=== PATIENT | female | born 1955 | race African-American/Black ===

== ENCOUNTER → 2018-08-22 20:01 | Outpatient (CLI) | payer BC, SELFPAY ==
--- NOTE | 2018-08-22 16:30 | CYSPIN_PTH ---
PATIENT: DAMIEN WELLER LOC: [facility] U#:[id number] AGE/SX: 70/F ROOM: RE08/22/[address]: JOSE Leon : 1955 BED: DIS: SPEC #: [id number] RECD: 08/23/18 11:34 STATUS: AYSE TOMASA #: [id number] SNEHAL: 08/22/18 16:[address]: Giovanna Wolf NP DEPT: CYTOLOGY RECD BY: Garry Guillaume ENTERED: 08/23/18 11:34 SP TYPE: CYSPIN FL OTHR DR: Dr. Ayde Peterson MD Tissues: Urine Procedures: Pap Stain (control) Special Stain Group II Cytospin Fluid HEADER OPERATION: Not noted PRE-OP DIAGNOSIS: Hematuria TISSUE SUBMITTED: Urine for cytology DIAGNOSIS CYTOLOGY Urine for cytology (cytospin): Negative for malignant cells. See cytology study and comment. SJ:sudha 08/24/18 COMMENT Correlation with clinical findings and appropriate follow up are necessary. CYTOLOGY STUDY Slides are reviewed. The specimen predominantly consists of benign squamous cells, organisms consistent with bacteria and fungi (yeast and pseudohyphae consistent with case species) and a few red blood cells. Vaginal contamination cannot be entirely ruled out. CYTOLOGY GROSS Received is 20 ml of cloudy yellow fluid labeled with the patient's name and and designated per the requisition as urine. Submitted for cytology preparation. 08/23/18 TC:5 CPT: 39983
[2018-08-22 20:02] LABS: Cytology, Body Fluid / CSF SEE PATHOLOGY REPORT
== END ==
PROVIDERS: Family Provider Internal Medicine; PCP Internal Medicine; Referring Provider Nurse Practitioner Adult Health; Visit Provider Nurse Practitioner Adult Health
DX: R31.9 Hematuria, unspecified (principal)
CPT/HCPCS: 87086; 87088; 88108; 88313

== ENCOUNTER → 2018-12-07 06:40 | Outpatient (CLI) | payer BC, SELFPAY ==
--- NOTE | 2018-12-07 10:50 | NEURO ---
NCS and/or EMG Patient Report Ordering Doctor: Daniel Nesbitt DATE OF SERVICE: 12/07/18 this is a right upper extremity emg and nerve conduction study performed on this 63-year-old female who in August 2018 experienced sharp pain in her right elbow with subsequent radiation of pain into her hand mostly affecting her second through fifth digits but at times her thumb as well. The elbow pain has resolved but she experiences persistent intermittent discomfort in her hand with no exacerbating or remitting factors. She is relatively healthy otherwise. Right upper extremity sensory and motor nerve conduction studies performed. There is mild prolongation of the median motor distal latency with preservation of amplitude and conduction velocities. The median sensory response is normal. The ulnar motor and sensory and radial sensory responses are normal. The median and ulnar F-wave latencies are normal. Right upper extremity needle electromyography was performed. Muscles evaluated included the first dorsal interosseous, abductor pollicis brevis, brachioradialis, biceps, triceps and deltoid muscles. All muscles demonstrated normal insertional activity with absence of pathologic spontaneous activity. Motor unit potential recruitment pattern and amplitude was normal in all muscles tested. 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 There is no evidence of neuropathy otherwise or cervical radiculopathy.
== END ==
PROVIDERS: Family Provider Internal Medicine; PCP Internal Medicine; Referring Provider Physician Assistant; Visit Provider Physician Assistant
DX: R20.2 Paresthesia of skin (principal)
CPT/HCPCS: 95886; 95910

== ENCOUNTER 2020-02-29 01:48 | Emergency (ER) | payer BC, SELFPAY ==
[2020-02-29 01:52] VITALS: BP 151/82; PULSE 112; RESP 18; TEMP 36.7; O2SAT 99; BMI 29.9
[2020-02-29 01:55] VITALS: BP 151/82; PULSE 112; RESP 18; TEMP 36.7; O2SAT 99
--- NOTE | 2020-02-29 02:03 | CT_ITS ---
STUDY: CT ABDOMEN AND PELVIS WITHOUT CONTRAST REASON FOR EXAM: Female, 64 years old. LEFT SIDE FLANK AND ABD PAIN WITH HEMATURIA AND CONSTIPATION, HX PT COLECTOMY, cholecystectomy, appendectomy, kidney stones as per prior examination. RADIATION DOSAGE (If Supplied By Facility): CTDIvol = ( 8.22 ) mGy, DLP = ( 390.00 ) mGycm TECHNIQUE: Transaxial 2.5 mm images were obtained from the dome of the diaphragm to the symphysis pubis without oral contrast, and without intravenous contrast. Sagittal and coronal images were reconstructed. This examination is limited for the evaluation of gastrointestinal, solid organs and vascular structures due to the lack of intravenous and oral contrast. Individualized dose optimization techniques were used for this CT. COMPARISON: CT abdomen pelvis 07/28/2017 FINDINGS: The visualized lung bases are unremarkable. There is coronary artery calcification. Stable 1 cm round partially peripheral calcification in the right hepatic lobe. There are surgical clips in the gallbladder fossa consistent with a prior cholecystectomy. Normal spleen. Normal pancreas. Normal bilateral adrenal glands. Large stable right renal cyst 6.5 x 6.5 x 6.3 cm. Multiple punctate nonobstructing right renal calculi, too small to characterize. No significant change. Normal left kidney. Normal visualized stomach. Normal small intestine. Normal colon. There is non-visualization of the appendix. Normal abdominal aorta. Normal inferior vena cava. Stable clusters of calcified lymph nodes in the pericaval and periaortic space and along the bilateral pelvic dahl. No active retroperitoneal lymphadenopathy. Normal urinary bladder. Uterus is not visualized. Normal abdominal wall. There are diffuse degenerative changes of the visualized spine, bilateral hip and sacroiliac joints, lower lumbar facet joints. CT/Abdomen/Pelvis without Cont IMPRESSION: There is no obstructive uropathy, obstructive renal or ureteral calculi. There is no abscess, collection, perforation or obstruction. Stable large right renal cyst and multiple small nonobstructing right renal calculi, 1 cm right hepatic calcification, prior cholecystectomy, nonvisualized uterus and appendix, clusters of calcification of retroperitoneal and lateral pelvic wall lymph nodes. Electronically Signed: Jessica Nichols MD at 3:07 EDT , Service support ,
--- NOTE | 2020-02-29 02:04 | ED.VIS.GEN ---
History of Present Illness Chief Complaint: Abd Pain Informant: Patient Narrative: Stated for the last 7 days she has had left lower back pain radiating into the left lower abdomen. She is unsure if is from constipation. Her last bowel movement was 10 days ago. Normally she goes every other day. She is tried Dulcolax and MiraLAX with minimal relief. Denies any nausea vomiting. Positive history of kidney stone. She did go to urgent care and they ruled out urine infection. They told her she did have hematuria. She has not noticed any blood however. Her low back pain is worse with movement. It appears movement related. Is a sharp pain. It is constant. No injury that she can remember. Bowel obstruction. History of appendectomy cystectomy and hysterectomy - Past Medical History (1) Malaise and fatigue Status: Acute (2) Hypothyroidism (acquired) Status: Chronic Comment: Patient is here to establish care. Will update labs as well as her US. Medication renewed. Reviewed medications and how to take. Past Medical History - Allergies and Home Meds Allergies/Adverse Reactions: Allergies codeine Allergy (Unknown, Verified 02/29/20 01:49) Unknown Primary Care Physician: Ayde Peterson MD [Primary Care Provider] - Prior records reviewed: Yes Past Medical History: - - See problem list Surgical History: appendectomy, cholecystectomy, hysterectomy Smoking Status: Never smoker Alcohol: None Drugs: None Review of Systems General: Denies: Chills, Fever, Sweats Eyes: Denies: Visual changes - bilaterally, Diplopia ENT: Denies: Rhinorrhea, Sore throat Cardiovascular: Denies: Chest pain, Palpitations Respiratory: Denies: Dyspnea, Cough, Dyspnea on exertion Gastrointestinal: Reports: Abdominal pain, Constipation. Denies: Nausea, Vomiting, Diarrhea, Melena, Hematochezia Genitourinary: Denies: Dysuria, Hematuria, Frequency Musculoskeletal: Reports: Back pain. Denies: Extremity Pain Skin: Denies: Rash, Wounds Neurological: Denies: Headache, Weakness, Numbness Physical Exam Vital Signs/Narrative: Vital Signs Temp Pulse Resp BP Pulse Ox 02/29/20 01:55 98.1 F 112 H 18 151/82 H 99 02/29/20 01:52 98.1 F 112 H 18 151/82 H 99 General: Well nourished, Well developed, No Acute Distress Head: Normocephalic, Atraumatic Eyes: Perrl, EOMI ENT: Moist mucous membranes, No rhinorrhea Neck: Supple, Nontender Cardiovascular: Regular rate, Regular rhythm, No murmurs Respiratory: No distress, CTA bilaterally, Chest nontender Abdomen: Soft, Nontender, Nondistended, Normal bowel sounds Back: Nontender, Normal Inspection Extremities: No edema, Tenderness - Tenderness in the left lower paraspinal lumbar spine with decreased range of motion secondary to pain. It is pinpoint. Negative for: Nontender Skin: Normal color, No rash Neurological: Alert, Oriented x3, Cranial nerves II-XII grossly intact, Normal Strength, Normal Sensation Psychological: Normal affect, Normal Mood Diagnostic/Tx/Re-eval - Medical Decision Making Patient given IV Toradol. Lab work and CT abdomen pelvis obtained. Lab work shows nothing acute including CBC BMP urinalysis. Creatinine is 1.2. CT abdomen pelvis shows nothing acute. Stable right-sided renal cyst. chronic changes noted. No kidney stone stuck in the ureter. She has moderate stool burden. Patient will be using citrate for constipation. She will also continue to use MiraLAX. I suspect her low back pain is secondary to musculoskeletal back strain. She can follow-up as an outpatient ED Disposition - Plan for ED Patient: Disposition: Home or Assisted Living Diagnosis: Low back strain, Constipation Instructions: ED LUMBAR SPRAIN/STRAIN, Treating Constipation Prescriptions: Meloxicam 15 mg PO DAILY #10 tab Transmission Status: Pending to [id number] Referrals: Ayde Peterson MD [Primary Care Provider] -
[2020-02-29] MEDS: Ketorolac 30 MG/ML Syringe IV (02:10)
[2020-02-29 02:16] LABS: Absolute Lymphocyte Count 3.96 X10^3/uL (0.83-4.51); Absolute Neutrophil Count 6.2 X10^3/uL (2.0-7.7); Basophil# 0.04 X10^3/uL; Basophil% 0.4 % (0-1); Eosinophils% 2.6 % (0-5); Hematocrit 35.8 % (37-47); Hemoglobin 11.8 g/dL (12.0-15.0); Lymphocyte # 3.96 X10^3/ul (4.0); Lymphocyte % 34.9 % (19-41); Mean Corpuscular Hgb 29.1 pg (27.0-32.0); Mean Corpuscular Volume 88.4 fL (81-99); Mean Platelet Vol. 9.7 fl (6.2-12.0); Monocyte% 7.1 % (0-10); NRBC Flagged by Analyzer 0 % (0-5); Neutrophil # 6.22 X10^3/uL (2.7-7.7); Neutrophil % 54.8 % (47-70); Platelet Count 302 K/mm3 (150-450); RBC Distribution Width CV 12.8 % (11.6-14.6); RBC Distribution Width SD 41.4 fl (35.1-43.9); Red Blood Count 4.05 M/mm3 (4.2-5.4); White Blood Count 11.3 K/mm3 (4.4-11.0)
[2020-02-29 02:30] LABS: Anion Gap 6 (5-15); BUN 19 mg/dL (7-18); BUN/Creat Ratio 15.1 RATIO (10-20); Calcium,Total 8.9 mg/dL (8.5-10.1); Chloride 107 mmol/L (98-107); Creatinine, Serum 1.26 mg/dL (0.55-1.02); EST Glomerular Filtration Rate 45 mL/min (>60); Est Glom Filt Rate - Afr Amer 55 mL/min (>60); Estimated Creatinine Clearance 31.55 ml/min; Glucose 97 mg/dL (74-106); Potassium 3.7 mmol/L (3.5-5.1); Sodium Level 140 mmol/L (136-145)
[2020-02-29 02:32] LABS: Bacteria 0 SEEN /hpf (None Seen); Mucous, Urine 0 SEEN /hpf (<or=2+); White Blood Cells 0 SEEN /hpf (0-5)
[2020-02-29 02:50] LABS: Color, Urine Yellow (Yellow); Glucose, Dipstick Normal (Normal); Ketone-Dipstick Negative (Negative); Leukocyte Esterase-Dipstick Negative /ul (Negative); Nitrite-Dipstick Negative (Negative); Occult Blood-Urine 150 /ul (Negative); Protein-Dipstick Negative (Negative); Specific Gravity, Urine 1.015 (1.002-1.030); Urine Bilirubin Dipstick Negative (Negative); Urine Clarity Clear (Clear); Urine Urobilinogen Normal (Normal)
[2020-02-29 02:57] LABS: Red Blood Cells-Urine 0-5 SEEN /hpf (0-5); Squamous Epithelial Cells - UA 0-5 SEEN /hpf (5-10)
[2020-02-29] MEDS: Magnesium Citrate 300 ML PO (03:45)
[2020-02-29 03:46] VITALS: RESP 18
== END 2020-02-29 03:46 | disposition home or self-care (01) ==
PROVIDERS: Emergency Provider Emergency Medicine; PCP Internal Medicine
DX: S39.012A Strain of muscle, fascia and tendon of lower back, initial encounter (principal); K59.00 Constipation, unspecified; N28.1 Cyst of kidney, acquired; X58.XXXA Exposure to other specified factors, initial encounter; Y93.9 Activity, unspecified; Y92.9 Unspecified place or not applicable; E03.9 Hypothyroidism, unspecified; Z79.899 Other long term (current) drug therapy
CPT/HCPCS: 74176; 80048; 81001; 85025; 96374; 99284; A4216

== ENCOUNTER → 2020-05-01 15:47 | Outpatient (CLI) | payer BC, SELFPAY ==
--- NOTE | 2020-05-01 16:01 | EKG12_ITS ---
Test Reason : PREOP Blood Pressure : / mmHG Vent. Rate : 110 BPM Atrial Rate : 110 BPM P-R Int : 156 ms QRS Dur : 082 ms QT Int : 330 ms P-R-T Axes : 071 011 045 degrees QTc Int : 446 ms Sinus tachycardia Otherwise normal ECG Confirmed by TIFFANIE GLOVER ([id number]), non linear editor LANCE SWAN ([id number]) on 05/06/2020 2:12:21 PM Referred By: Dony Kaye Confirmed By:TIFFANIE GLOVER
[2020-05-01 16:47] LABS: Anion Gap 4 (5-15); BUN 13 mg/dL (7-18); BUN/Creat Ratio 12.9 RATIO (10-20); Chloride 109 mmol/L (98-107); Creatinine, Serum 1.01 mg/dL (0.55-1.02); EST Glomerular Filtration Rate 58 mL/min (>60); Est Glom Filt Rate - Afr Amer 70 mL/min (>60); Glucose 94 mg/dL (74-106); Potassium 3.8 mmol/L (3.5-5.1); Sodium Level 138 mmol/L (136-145)
== END ==
PROVIDERS: PCP Internal Medicine; Referring Provider Orthopaedic Surgery; Visit Provider Orthopaedic Surgery
DX: Z01.818 Encounter for other preprocedural examination (principal); Z79.899 Other long term (current) drug therapy
CPT/HCPCS: 36415; 80048; 93005

== ENCOUNTER → 2020-05-06 18:01 | Outpatient (CLI) | payer BC, SELFPAY | PROVIDERS: PCP Internal Medicine; Referring Provider Orthopaedic Surgery; Visit Provider Orthopaedic Surgery | DX: Z11.59 Encounter for screening for other viral diseases (principal) | CPT/HCPCS: 87635; G2023; U0003 ==

== ENCOUNTER → 2020-05-29 12:37 | Outpatient (CLI) | payer BC, SELFPAY ==
[2020-05-29 14:13] LABS: Anion Gap 1 (5-15); BUN 13 mg/dL (7-18); BUN/Creat Ratio 12.7 RATIO (10-20); Calcium,Total 9.2 mg/dL (8.5-10.1); Chloride 107 mmol/L (98-107); Creatinine, Serum 1.02 mg/dL (0.55-1.02); EST Glomerular Filtration Rate 57 mL/min (>60); Est Glom Filt Rate - Afr Amer 70 mL/min (>60); Glucose 89 mg/dL (74-106); Potassium 3.7 mmol/L (3.5-5.1); Sodium Level 139 mmol/L (136-145); T4 Free Direct 0.96 ng/dL (0.76-1.46); Thyroid Stim Hormone (TSH) 1.02 uIU/mL (0.358-3.74)
== END ==
PROVIDERS: PCP Internal Medicine; Referring Provider Internal Medicine Endocrinology, Diabetes & Metabolism; Visit Provider Internal Medicine Endocrinology, Diabetes & Metabolism
DX: E89.0 Postprocedural hypothyroidism (principal)
CPT/HCPCS: 36415; 80048; 84439; 84443; 84481

== ENCOUNTER → 2020-12-14 11:07 | Outpatient (CLI) | payer OTHER, SELFPAY ==
[2020-12-14 11:59] LABS: Vitamin D,25 Hydroxy 42.6 ng/mL
[2020-12-14 12:06] LABS: ALB/GLOB Ratio 0.8 RATIO (0.9-2.4); AST(SGOT) 19 U/L (15-37); Alanine Aminotransfer ALT/SGPT 28 U/L (13-56); Albumin, Serum 3.5 g/dL (3.2-5.0); Alkaline Phosphatase 100 U/L (45-117); Anion Gap 5 (5-15); BUN 12 mg/dL (7-18); BUN/Creat Ratio 10.1 RATIO (10-20); Calcium,Total 8.9 mg/dL (8.5-10.1); Chloride 106 mmol/L (98-107); Creatinine, Serum 1.19 mg/dL (0.55-1.02); EST Glomerular Filtration Rate 48 mL/min (>60); Est Glom Filt Rate - Afr Amer 58 mL/min (>60); Free T3 2.3 pg/mL (2.18-3.98); Globulin 4.5 g/dL (2.2-4.2); Glucose 90 mg/dL (74-106); Potassium 3.9 mmol/L (3.5-5.1); Sodium Level 139 mmol/L (136-145); T4 Free Direct 1.19 ng/dL (0.76-1.46); Thyroid Stim Hormone (TSH) 0.54 uIU/mL (0.358-3.74)
== END ==
PROVIDERS: PCP Internal Medicine; Referring Provider Internal Medicine Endocrinology, Diabetes & Metabolism; Visit Provider Internal Medicine Endocrinology, Diabetes & Metabolism
DX: E03.9 Hypothyroidism, unspecified (principal); E04.9 Nontoxic goiter, unspecified; E55.9 Vitamin D deficiency, unspecified
CPT/HCPCS: 36415; 80053; 82306; 84439; 84443; 84481

== ENCOUNTER 2021-01-09 06:04 | Outpatient (RCR) | payer OTHER, SELFPAY ==
[2021-01-09] MEDS: COVID-19 VACC, MRNA(PFIZER)/PF 30 MCG/0.3 ML SYRINGE IM (16:30)
[2021-01-30] MEDS: COVID-19 VACC, MRNA(PFIZER)/PF 30 MCG/0.3 ML SYRINGE IM (16:23)
== END 2021-04-08 23:59 ==
LOC: IMMUN 06:04
PROVIDERS: PCP Internal Medicine; Referring Provider Family Medicine; Visit Provider Family Medicine
DX: Z23 Encounter for immunization (principal)
CPT/HCPCS: 0001A; 0002A; 91300

== ENCOUNTER → 2021-06-24 11:50 | Outpatient (CLI) | payer OTHER, SELFPAY ==
[2021-06-24 12:54] LABS: Vitamin D,25 Hydroxy 55.9 ng/mL
[2021-06-24 13:05] LABS: ALB/GLOB Ratio 0.8 RATIO (0.9-2.4); AST(SGOT) 20 U/L (15-37); Alanine Aminotransfer ALT/SGPT 37 U/L (13-56); Albumin, Serum 3.5 g/dL (3.2-5.0); Alkaline Phosphatase 86 U/L (45-117); Anion Gap 6 (5-15); BUN 16 mg/dL (7-18); BUN/Creat Ratio 16.9 RATIO (10-20); Calcium,Total 8.4 mg/dL (8.5-10.1); Chloride 108 mmol/L (98-107); Creatinine, Serum 0.95 mg/dL (0.55-1.02); EST Glomerular Filtration Rate 63 mL/min (>60); Est Glom Filt Rate - Afr Amer 76 mL/min (>60); Free T3 2.8 pg/mL (2.18-3.98); Globulin 4.2 g/dL (2.2-4.2); Glucose 87 mg/dL (74-106); Potassium 3.9 mmol/L (3.5-5.1); Protein, Total 7.7 g/dL (6.4-8.2); Sodium Level 139 mmol/L (136-145); T4 Free Direct 0.98 ng/dL (0.76-1.46); Thyroid Stim Hormone (TSH) 0.39 uIU/mL (0.358-3.74)
== END ==
PROVIDERS: PCP Internal Medicine; Referring Provider Internal Medicine Endocrinology, Diabetes & Metabolism; Visit Provider Internal Medicine Endocrinology, Diabetes & Metabolism
DX: E55.9 Vitamin D deficiency, unspecified (principal); E03.9 Hypothyroidism, unspecified; E04.9 Nontoxic goiter, unspecified
CPT/HCPCS: 36415; 80053; 82306; 84439; 84443; 84481

== ENCOUNTER 2021-08-11 07:28 | Day surgery (SDC) | payer OTHER, SELFPAY ==
--- NOTE | 2021-08-11 | EGD_PTH ---
PATIENT: DAMIEN WELLER LOC: EN U#:[id number] AGE/SX: 66/F ROOM: RE08/11/[address]: Dr. Adilson Faustin DO : 1955 BED: DIS: 08/11/2021 SPEC #: [id number] RECD: 08/11/21 12:35 STATUS: AYSE REVi #: [id number] SNEHAL: 08/11/21 00:[address]: Adilson Faustin DEPT: SURGICAL PATHOLOGY RECD BY: Jabari Almazan ENTERED: 08/11/21 12:35 SP TYPE: EGD BIOPSY OT DR: Dr. Ayde Peterson MD Tissues: A - Duodenum, NOS B - Esophageal mucous membrane C - Ileum, NOS D - COLON BIOPSY Procedures: Special Stain Group II Surgery Specimen Level IV Alcian Blue/PAS (control) HEADER OPERATION: Colonoscopy, EGD ([facility] [place]) PRE-OP DIAGNOSIS: Dysphagia, GERD, IBS (irritable bowel syndrome) TISSUE SUBMITTED: A ? Duodenum biopsy, B ? Distal esophagus biopsy, C ? Biopsy of terminal ileum, D ? Random colon biopsy MICROSCOPIC DIAGNOSIS A. Duodenum, biopsy: Fragments of duodenal mucosa with mild Nisreen gland hyperplasia. B. Distal esophagus, biopsy: Fragments of gastroesophageal mucosa with mild to moderate chronic inflammation. Intestinal metaplasia (goblet cell metaplasia) not identified. See comment. C. Terminal ileum, biopsy: A fragment of small intestinal mucosa, no pathologic diagnosis. D. Colon, random biopsy: Fragments of colonic mucosa, no pathologic diagnosis. SJ:sudha 08/12/2021 COMMENT B. Alcian blue/PAS stain with matched control is used in the evaluation of the specimen. MICROSCOPIC DESCRIPTION Slides are reviewed. GROSS DESCRIPTION A - Received in fixative is one container labeled with the patient's name and designated duodenum biopsy. The specimen consists of multiple irregular fragments of light vergara soft tissue that in aggregate measure 1 x 0.3 x 0.1 cm. The specimen is totally submitted in one cassette. B - Received in fixative is one container labeled with the patient's name and designated distal esophagus biopsy. The specimen consists of two irregular fragments of light vergara soft tissue that in aggregate measure 0.6 x 0.3 x 0.1 cm. The specimen is totally submitted in one cassette. C - Received in fixative is one container labeled with the patient's name and designated biopsy of terminal ileum. The specimen consists of one irregular fragment of light vergara soft tissue that measures 0.3 x 0.2 x 0.1 cm. The specimen is totally submitted in one cassette. D - Received in fixative is one container labeled with the patient's name and designated random colonic biopsy. The specimen consists of multiple irregular fragments of light vergara soft tissue that in aggregate measure 1.5 x 0.5 x 0.1 cm. The specimen is totally submitted in one cassette. / SJ:rg 08/11/21 TC:3 CPT: 20439 x4, 83831
[2021-08-11 07:45] VITALS: BP 147/83; PULSE 101; RESP 16; TEMP 36; O2SAT 99; BMI 28.2
[2021-08-11] MEDS: Lactated Ringers 1,000 ML 100 ML IV (07:57)
--- NOTE | 2021-08-11 08:32 | HP.PCM_ITS ---
History and Physical Date of Admission: 08/11/21 [facility] [address] [place] [address] OFFICE VISITDate of Service: 07/23/21 MR#:[id number]:[id number]: DAMIEN WELLER #:[id number] Provider:Adilson Faustin DOAge/Sex: 66/F [facility] [place] Int[facility] Vital Signs 07/23/21 09:03 Height 5 ft Weight: 148 lb 2 oz BMI 28.9 Intake Visit Reasons: STOMACH ISSUES Is patient in pain?: No Allergies codeine Allergy (Unknown, Verified 07/23/21 08:57) Unknown Medications amitriptyline 10 mg tablet 10 mg PO QHS 04/21/18 [History Confirmed 07/23/21] amlodipine 2.5 mg tablet 2.5 mg PO BID tab 04/21/18 [History Confirmed 07/23/21] cholecalciferol (vitamin D3) 1,250 mcg (50,000 unit) capsule 50,000 unit PO QWEEK 04/21/18 [History Confirmed 07/23/21] colestipol 1 gram tablet 1 g PO BID tab 04/21/18 [History Confirmed 07/23/21] pantoprazole 40 mg tablet,delayed release 40 mg PO QDAY 04/21/18 [History Confirmed 07/23/21] pravastatin 10 mg tablet 10 mg PO QDAY 04/21/18 [History Confirmed 07/23/21] cephalexin 500 mg PO BID 02/29/20 [History Confirmed 07/23/21] docusate sodium 100 mg PO BID 02/29/20 [History Confirmed 07/23/21] meloxicam 15 mg PO DAILY #10 tab 02/29/20 [Rx Confirmed 07/23/21] thyroid (pork) 30 mg PO DAILY 02/29/20 [History Confirmed 07/23/21] carvedilol 3.125 mg tablet 3.125 mg PO BID 07/23/21 [History Confirmed 07/23/21] Patient : No PFSH Medical History (Updated 07/23/21 @ 10:[address] De Anda Friend, DO) Arthritis Back problem Chronic bronchitis GERD (gastroesophageal reflux disease) GI problem High cholesterol High triglycerides HTN (hypertension) IBS (irritable bowel syndrome) IBS (irritable bowel syndrome) Seasonal allergies Stomach ulcer Thyroid cancer Vitamin deficiency Surgical History H/O partial thyroidectomy H/O: hysterectomy Hx of appendectomy Hx of cholecystectomy small intestine surgery Family History Sister Breast cancer Thyroid cancer Father Diabetes Heart disease Hypertension CVA (cerebral vascular accident) Mother Diabetes Social History Smoking Status: Never smoker second hand exposure: No alcohol intake: never substance use type: does not use HPI HPI Details: DAMIEN WELLER, is a 66 F who presents to the office today to care to our department. She has a past medical history of IBS - Mixed and GERD. Recently she was placed on Pantoprazaole hurts her stomach when taking in morning and then gets diarrhea, added carafate to treat pantoprazole symptoms. She has not taken these meds in about six months to a year. Recently has experienced a feeling like the food slows down or gets stuck in her throat, her stomach then gets upset and gurgling then she gets a bit of a cough and sometimes will throw up whatever is stuck in her throat. Currently taking amitriptyline and probiotic for her stomach at this time. Last colonoscopy 7-8 years ago. Unsure if she's ever had a EGD. She has bloating and diarrhea on a daily basis. She has had extensive work-up that she believes including stool studies and imaging. She does have a history of intermittent small bowel obstruction for thought to be secondary to adhesions. She has had 2 bowel surgeries which she had lysis of adhesions. She is complaining of cramping and bloating, and nausea. She denies any chest pain or shortness of breath. She has been on amitriptyline for IBS symptoms for as long as she can remember. ROS Const Constitutional: Positive for fatigue Eyes Eyes: No change in vision ENT ENT: No abnormal hearing, difficulty swallowing, mouth lesions, tongue swelling or throat swelling Resp Respiratory: No cough or shortness of breath Cardio Cardiology: No chest pain at rest, chest pain with exertion, shortness of breath or dyspnea on exertion Gastro GI: Positive for bloating and heartburn; No difficulty swallowing Genitourinary-Female: Positive for urinary frequency and urinary urgency Musc Musculoskeletal: Positive for muscle cramps Skin Skin: No hair loss in leg, yellowing of the eye, itchy eyes, rash, skin ulcer or skin swelling Neuro Neurology: No abnormal hearing, abnormal movements, confusion, unsteady gait/balance or memory loss Psych Psychiatric: No anxiety, No confusion and No memory loss Endo Endocrine: Positive for fatigue Aller/Imm Allergy/Immunologic: No itchy eyes, throat swelling or tongue swelling Herminio/Lymp Hematologic/Lymphatic: No easy bleeding, easy bruising or enlarged lymph nodes Exam Const General: cooperative and comfortable Nutritional Appearance: average body habitus and well nourished HENMT Head: normal to inspection Ears: hearing grossly normal bilaterally Nose: external nose normal Face and sinus: normal facial exam Mouth: oral mucosae normal Throat: posterior oropharynx normal Eyes General: appearance normal, both eyes and all related structures Neck Neck: normal visual inspection Chest Chest palpation & inspection: normal inspection of the chest and normal palpation of entire chest wall Resp Effort & Inspection: normal respiratory effort Auscultation: Bilateral: Clear to Auscultation Cardio Palpation: normal PMI Rate: regular rate Rhythm: regular rhythm GI Inspection: normal to inspection Auscultation: normal bowel sounds Percussion: normal to percussion Palpation: no hepatosplenomegaly Skin General: no rashes or lesions noted Neuro General: patient alert Extrem General: normal to inspection Psych Affect: normal affect Quality Reporting Tobacco Screening ([facility]) Smoking Status: Never smoker Assessment and Plan Assessment and Plan (1) IBS (irritable bowel syndrome): Status: Acute Plan - Dr. De Anda Friend, DO: I will not stop amitriptyline at this time. And when she does eventually stop it because I do not think it is working, she will need to wean off of it. Sometimes the anticholinergic effects from the tricyclic antidepressants can have the opposite effect or it can wear off. Vaishali have shown that increasing the doses of amitriptyline has not been efficacious in regarding reducing her bowel syndrome type symptoms (2) GERD (gastroesophageal reflux disease): Status: Acute Plan - Dr. De Anda Friend, DO: She is currently taking an H2 receptor corinne. I will continue that for now pending upper endoscopy (3) Dysphagia: Status: Acute Plan - Dr. De Anda Friend, DO: We will evaluate her upper GI tract viral hernia, Schatzki's ring or any other abnormality in esophagus that would inhibit her swallowing solids greater than liquids. Coding Level of Care Code Off vis,new,level 4 Diagnoses IBS (irritable bowel syndrome) K58.9 GERD (gastroesophageal reflux disease) K21.9 Dysphagia R13.10 This is an updated HPI from when the patient was seen in office. Nothing has changed since he was seen in office.
[2021-08-11 09:20] VITALS: BP 105/63; BP 147/83; PULSE 81; RESP 16; TEMP 36.1; O2SAT 100
[2021-08-11 09:25] VITALS: BP 147/83; BP 93/63; PULSE 85; RESP 16; O2SAT 100
--- NOTE | 2021-08-11 09:27 | OP.EGD_ITS ---
Patient Name: Valeria Hunter Procedure Date: 08/11/2021 8:44 AM Date of : 1955 Age: 66 Procedure: Upper GI endoscopy Indications: Epigastric abdominal pain, Dysphagia Providers: Adilson Faustin DO Medicines: Propofol per Anesthesia Patient Profile: This is a 66 year old female. Refer to note in patient chart for documentation of history and physical. Patient has symptoms of chronic abdominal cramping and acute dysphagia. The symptoms first began 2018. She is status post colonoscopy (normal) and EGD (normal) in the distant past. Complications: No immediate complications. Procedure: Pre-Anesthesia Assessment: - Prior to the procedure, a History and Physical was performed, and patient medications and allergies were reviewed. The patient is competent. The risks and benefits of the procedure and the sedation options and risks were discussed with the patient. All questions were answered and informed consent was obtained. Patient identification and proposed procedure were verified by the physician in the pre-procedure area. Mental Status Examination: alert and oriented. Airway Examination: normal oropharyngeal airway and neck mobility. Respiratory Examination: clear to auscultation. CV Examination: normal. Prophylactic Antibiotics: The patient does not require prophylactic antibiotics. Prior Anticoagulants: The patient has taken no previous anticoagulant or antiplatelet agents. ASA Grade Assessment: II - A patient with mild systemic disease. After reviewing the risks and benefits, the patient was deemed in satisfactory condition to undergo the procedure. The anesthesia plan was to use moderate sedation / analgesia (conscious sedation). Immediately prior to administration of medications, the patient was re-assessed for adequacy to receive sedatives. The heart rate, respiratory rate, oxygen saturations, blood pressure, adequacy of pulmonary ventilation, and response to care were monitored throughout the procedure. The physical status of the patient was re-assessed after the procedure. After obtaining informed consent, the endoscope was passed under direct vision. Throughout the procedure, the patient's blood pressure, pulse, and oxygen saturations were monitored continuously. The gastroscope was introduced through the mouth, and advanced to the second part of duodenum. The upper GI endoscopy was accomplished without difficulty. The patient tolerated the procedure well. Moderate Sedation: Moderate (conscious) sedation was administered by the endoscopy nurse and supervised by the endoscopist. The following parameters were monitored: oxygen saturation, heart rate, blood pressure, and response to care. Total physician intraservice time was 15 minutes. Scope In: 8:51:03 AM Scope Out: 8:57:53 AM Total Procedure Duration Time 0 hours 6 minutes 50 seconds Findings: LA Grade A (one or more mucosal breaks less than 5 mm, not extending between tops of 2 mucosal folds) esophagitis with no bleeding was found 34 to 35 cm from the incisors. Biopsies were taken with a cold forceps for histology. Verification of patient identification for the specimen was done. Estimated blood loss was minimal. A small hiatal hernia was present. No other significant abnormalities were identified in a careful examination of the stomach. Patchy mildly erythematous mucosa without active bleeding and with no stigmata of bleeding was found in the first portion of the duodenum. Impression: - LA Grade A reflux esophagitis. Biopsied. - Small hiatal hernia. - Erythematous duodenopathy. Recommendation: - Discharge patient to home. - Resume previous diet. - Continue present medications. - Await pathology results. - Repeat upper endoscopy in 1 year for surveillance. - Return to GI office in 2 weeks. Procedure Code(s): --- Professional --- 61451, Esophagogastroduodenoscopy, flexible, transoral; with biopsy, single or multiple G0500, Moderate sedation services provided by the same physician or other qualified health urgent care nurse practitioner performing a gastrointestinal endoscopic service that sedation supports, requiring the presence of an independent trained observer to assist in the monitoring of the patient's level of consciousness and physiological status; initial 15 minutes of intra-service time; patient age 5 years or older (additional time may be reported with [address]388, as appropriate) CPT copyright 2017 [employer]. All rights reserved. The codes documented in this report are preliminary and upon exercise planner review may be revised to meet current compliance requirements. Adilson Faustin DO 08/11/2021 9:26:51 AM Number of Addenda: 1 Note Initiated On: 08/11/2021 8:44 AM Addendum Number: 1 Addendum Date: 07/02/2022 4:28:38 PM MAC was used instead of moderate sedation for this patient. Adilson Faustin DO 07/02/2022 4:28:42 PM
--- NOTE | 2021-08-11 09:28 | OP.CCLET_ITS ---
07/02/2022 Ayde Peterson [address] [place] [address] Re : Upper GI endoscopy procedure for Valeria Dale Dear Dr. Peterson This procedure was performed on Wednesday, August 11, 2021. My impressions and recommendations are as follows: Impressions : - LA Grade A reflux esophagitis. Biopsied. - Small hiatal hernia. - Erythematous duodenopathy. Recommendations : - Discharge patient to home. - Resume previous diet. - Continue present medications. - Await pathology results. - Repeat upper endoscopy in 1 year for surveillance. - Return to GI office in 2 weeks. My findings are described in the full procedure note, which is enclosed. If I can be of further assistance, please feel free to contact me at . Sincerely, Adilson Friend, 08/11/2021 9:26:51 AM
[2021-08-11 09:30] VITALS: BP 147/83; BP 96/52; PULSE 75; RESP 16; O2SAT 100
--- NOTE | 2021-08-11 09:34 | OP.COLON_ITS ---
Patient Name: Valeria Hunter Procedure Date: 08/11/2021 8:58 AM Date of : 1955 Age: 66 Procedure: Colonoscopy Indications: Chronic diarrhea Providers: Adilson Faustin DO Medicines: Propofol per Anesthesia Patient Profile: This is a 66 year old female. Refer to note in patient chart for documentation of history and physical. Patient has symptoms of chronic abdominal cramping and acute dysphagia. The symptoms first began 2018. She is status post colonoscopy (normal) and EGD (normal) in the distant past. Is status post in the distant past. Last Colonoscopy: more than 10 years ago. Complications: No immediate complications. Procedure: Pre-Anesthesia Assessment: - Prior to the procedure, a History and Physical was performed, and patient medications and allergies were reviewed. The patient is competent. The risks and benefits of the procedure and the sedation options and risks were discussed with the patient. All questions were answered and informed consent was obtained. Patient identification and proposed procedure were verified by the physician in the pre-procedure area. Mental Status Examination: alert and oriented. Airway Examination: normal oropharyngeal airway and neck mobility. Respiratory Examination: clear to auscultation. CV Examination: normal. Prophylactic Antibiotics: The patient does not require prophylactic antibiotics. Prior Anticoagulants: The patient has taken no previous anticoagulant or antiplatelet agents. ASA Grade Assessment: II - A patient with mild systemic disease. After reviewing the risks and benefits, the patient was deemed in satisfactory condition to undergo the procedure. The anesthesia plan was to use moderate sedation / analgesia (conscious sedation). Immediately prior to administration of medications, the patient was re-assessed for adequacy to receive sedatives. The heart rate, respiratory rate, oxygen saturations, blood pressure, adequacy of pulmonary ventilation, and response to care were monitored throughout the procedure. The physical status of the patient was re-assessed after the procedure. After I obtained informed consent, the scope was passed under direct vision. Throughout the procedure, the patient's blood pressure, pulse, and oxygen saturations were monitored continuously. The colonoscope was introduced through the anus and advanced to the terminal ileum. The colonoscopy was performed without difficulty. The patient tolerated the procedure well. The quality of the bowel preparation was good. Moderate Sedation: Moderate (conscious) sedation was administered by the endoscopy nurse and supervised by the endoscopist. The following parameters were monitored: oxygen saturation, heart rate, blood pressure, and response to care. Total physician intraservice time was 15 minutes. Scope In: 9:01:15 AM Scope Withdrawal Time 0 hours 8 minutes 56 seconds Scope Out: 9:15:15 AM Total Procedure Duration Time 0 hours 14 minutes 0 seconds Findings: The perianal and digital rectal examinations were normal. The exam was otherwise normal throughout the examined colon. An area of mildly congested mucosa was found in the sigmoid colon. Biopsies were taken with a cold forceps for histology. Verification of patient identification for the specimen was done. Estimated blood loss was minimal. The terminal ileum appeared normal. This was biopsied with a cold forceps for histology. Verification of patient identification for the specimen was done. Estimated blood loss was minimal. Impression: - Congested mucosa in the sigmoid colon. Biopsied. - The examined portion of the ileum was normal. Biopsied. Recommendation: - Repeat colonoscopy in 5 years for surveillance. - Return to GI office in 2 weeks. - Continue present medications. Procedure Code(s): --- Professional --- 09614, Colonoscopy, flexible; with biopsy, single or multiple G0500, Moderate sedation services provided by the same physician or other qualified health child care attendant performing a gastrointestinal endoscopic service that sedation supports, requiring the presence of an independent trained observer to assist in the monitoring of the patient's level of consciousness and physiological status; initial 15 minutes of intra-service time; patient age 5 years or older (additional time may be reported with 20535, as appropriate) CPT copyright 2017 [employer]. All rights reserved. The codes documented in this report are preliminary and upon financial solutions advisor review may be revised to meet current compliance requirements. Adilson Faustin DO 08/11/2021 9:33:46 AM This report has been signed electronically. Number of Addenda: 1 Note Initiated On: 08/11/2021 8:58 AM Addendum Number: 1 Addendum Date: 07/02/2022 4:28:56 PM MAC was used instead of moderate sedation for this patient. Adilson Faustin DO 07/02/2022 4:29:09 PM This report has been signed electronically.
--- NOTE | 2021-08-11 09:35 | OP.CCLET_ITS ---
07/02/2022 Ayde Peterson [address] [place] [address] Re : Colonoscopy procedure for Valeria Hunter Dear Dr. Peterson This procedure was performed on Wednesday, August 11, 2021. My impressions and recommendations are as follows: Impressions : - Congested mucosa in the sigmoid colon. Biopsied. - The examined portion of the ileum was normal. Biopsied. Recommendations : - Repeat colonoscopy in 5 years for surveillance. - Return to GI office in 2 weeks. - Continue present medications. My findings are described in the full procedure note, which is enclosed. If I can be of further assistance, please feel free to contact me at . Sincerely, Adilson Friend, 08/11/2021 9:33:46 AM This report has been signed electronically.
[2021-08-11 09:36] VITALS: BP 115/77; BP 147/83; PULSE 83; RESP 16; TEMP 36.8; O2SAT 100
[2021-08-11 09:40] VITALS: BP 147/83
== END 2021-08-11 09:59 ==
LOC: EN 07:28 → AC 07:29
PROVIDERS: PCP Internal Medicine; Referring Provider Internal Medicine; Visit Provider Internal Medicine Gastroenterology
PROC: 0DJD8ZZ Inspection of Lower Intestinal Tract, Via Natural or Artificial Opening Endoscopic (ICD-10-PCS; CPT 45378; principal; 2021-08-11 08:25)
DX: K21.00 Gastro-esophageal reflux disease with esophagitis, without bleeding (principal); K44.9 Diaphragmatic hernia without obstruction or gangrene; K58.9 Irritable bowel syndrome, unspecified; K63.89 Other specified diseases of intestine; I10 Essential (primary) hypertension; M19.90 Unspecified osteoarthritis, unspecified site; K21.9 Gastro-esophageal reflux disease without esophagitis; E78.00 Pure hypercholesterolemia, unspecified; Z87.19 Personal history of other diseases of the digestive system; Z85.850 Personal history of malignant neoplasm of thyroid; Z90.49 Acquired absence of other specified parts of digestive tract; Z79.899 Other long term (current) drug therapy
CPT/HCPCS: 43239; 45380; 88305; 88313; 88342; J7120; C1769; J2405

== ENCOUNTER 2021-12-29 13:44 | Outpatient (CLI) | payer BC, SELFPAY ==
--- NOTE | 2021-12-29 12:15 | ECHOD_ITS ---
Version 2 Reason For Study: SOB Procedure This was a 2D Doppler, Color Flow transthoracic echocardiogram. Exam performed in department. Left Ventricle Normal LV size. Left ventricular systolic function is normal. The estimated ejection fraction is 60 %. Stage 1 diastolic dysfunction. No regional wall motion abnormalities noted. Right Ventricle Normal RV size. Normal systolic function. Atria Normal left atrium. Normal right atrium. Mitral Valve Normal mitral valve. Tricuspid Valve Normal tricuspid valve. Aortic Valve Normal aortic valve. Trisinus/trileaflet aortic valve. Pulmonic Valve Normal pulmonic valve. Great Vessels Normal aortic root. The pulmonary artery is normal size. Normal inferior vena cava. Pericardium/Pleural No pericardial effusion. MMode/2D Measurements & Calculations LVIDd: 4.1 cm IVSd: 0.99 cm Ao root diam: 2.9 cm LVIDs: 2.8 cm LVPWd: 0.82 cm RVDd: 2.8 cm FS: 32.0 % LAV(MOD-bp): 25.9 ml LVAd ap4: 24.2 cm2 LVAd ap2: 22.4 cm2 LAV(MOD-bp) Indexed: 15.5 ml/m2 LVLd ap4: 7.1 cm LVLd ap2: 7.2 cm LAV(MOD-sp2): 20.7 ml EDV(MOD-sp4): 69.1 ml EDV(MOD-sp2): 58.8 ml LAV(MOD-sp4): 31.0 ml EDV(sp4-el): 70.1 ml EDV(sp2-el): 59.2 ml LVAs ap4: 15.0 cm2 LVAs ap2: 12.9 cm2 LVLs ap4: 6.2 cm LVLs ap2: 6.4 cm ESV(MOD-sp4): 30.9 ml ESV(MOD-sp2): 22.9 ml ESV(sp4-el): 31.0 ml ESV(sp2-el): 22.3 ml EF(MOD-sp4): 55.3 % EF(MOD-sp2): 61.1 % EF(sp4-el): 55.8 % SV(MOD-sp4): 38.2 ml SV(MOD-sp2): 35.9 ml SV(sp4-el): 39.1 ml LA dimension(2D): 2.7 cm LA A4 area: 13.2 cm2 RA A4 area: 8.2 cm2 Doppler Measurements & Calculations MV E max eduin: 64.6 cm/sec Lat Peak E' Eduin: 5.7 cm/sec Med Peak E' Eduin: 5.4 cm/sec MV A max eduin: 84.6 cm/sec E/E' lat: 11.4 E/E' med: 12.0 MV E/A: 0.76 Ao V2 max: 117.0 cm/sec LV V1 max: 92.8 cm/sec PA V2 max: 81.7 cm/sec Ao max P.5 mmHg LV V1 max P.4 mmHg ECHO/Echo Complete Interpretation Summary Normal LV size. Left ventricular systolic function is normal. The estimated ejection fraction is 60 %. Stage 1 diastolic dysfunction. Structurally normal valves. The global longitudinal strain is borderline abnorm al. The global longitudinal strain = -16.6% (abnormal). Ordering Physician: Magan Reynoso Referring Physician: Ayde Peterson M.D. Performed By: Jamee Soares RDCS
[2021-12-29 12:37] LABS: Hematocrit 40.6 % (37-47); Hemoglobin 13.2 g/dL (12.0-15.0); Mean Corp Hgb Conc 32.5 g/dL (32-36); Mean Corpuscular Hgb 29.2 pg (27.0-32.0); Mean Corpuscular Volume 89.8 fL (81-99); Mean Platelet Vol. 9.9 fl (6.2-12.0); Platelet Count 320 K/mm3 (150-450); RBC Distribution Width CV 13.6 % (11.6-14.6); RBC Distribution Width SD 44.5 fl (35.1-43.9); Red Blood Count 4.52 M/mm3 (4.2-5.4); White Blood Count 7.5 K/mm3 (4.4-11.0)
[2021-12-29 13:26] LABS: ALB/GLOB Ratio 0.8 RATIO (0.9-2.4); AST(SGOT) 21 U/L (15-37); Alanine Aminotransfer ALT/SGPT 31 U/L (13-56); Albumin, Serum 3.6 g/dL (3.2-5.0); Alkaline Phosphatase 95 U/L (45-117); Anion Gap 5 (5-15); BUN 18 mg/dL (7-18); BUN/Creat Ratio 16.8 RATIO (10-20); Calcium,Total 9.2 mg/dL (8.5-10.1); Chloride 107 mmol/L (98-107); Cholesterol 209 mg/dL (200); Creatinine, Serum 1.07 mg/dL (0.55-1.02); EST Glomerular Filtration Rate 54 mL/min (>60); Est Glom Filt Rate - Afr Amer 66 mL/min (>60); Free T3 2.8 pg/mL (2.18-3.98); Globulin 4.6 g/dL (2.2-4.2); Glucose 97 mg/dL (74-106); High Density Lipoprotein 99 mg/dL; Potassium 3.9 mmol/L (3.5-5.1); Protein, Total 8.2 g/dL (6.4-8.2); Sodium Level 140 mmol/L (136-145); T4 Free Direct 1.06 ng/dL (0.76-1.46); Thyroid Stim Hormone (TSH) 0.46 uIU/mL (0.358-3.74); Triglycerides 69 mg/dL; Very Low Density Lipoprotein 14 mg/dL (5-40)
== END 2021-12-29 23:59 | disposition home or self-care (01) ==
LOC: CVS 13:44
PROVIDERS: Internal Medicine Endocrinology, Diabetes & Metabolism; PCP Internal Medicine; Referring Provider Internal Medicine Cardiovascular Disease; Visit Provider Internal Medicine Cardiovascular Disease
DX: R00.0 Tachycardia, unspecified (principal); E03.9 Hypothyroidism, unspecified; E04.9 Nontoxic goiter, unspecified; E55.9 Vitamin D deficiency, unspecified; I10 Essential (primary) hypertension; R06.00 Dyspnea, unspecified
CPT/HCPCS: 36415; 80053; 80061; 84439; 84443; 84481; 85027; 93225; 93226; 93306

== ENCOUNTER → 2022-03-03 | Outpatient (CLI) | payer BC, SELFPAY ==
[2022-03-03 12:03] LABS: Absolute Lymphocyte Count 2.64 X10^3/uL (0.83-4.51); Absolute Neutrophil Count 3.9 X10^3/uL (2.0-7.7); Basophil# 0.03 X10^3/uL; Basophil% 0.4 % (0-1); Eosinophil# 0.09 X10^3/uL; Eosinophils% 1.3 % (0-5); Hematocrit 41.6 % (37-47); Hemoglobin 13.3 g/dL (12.0-15.0); Lymphocyte # 2.64 X10^3/ul (0.83-4.51); Lymphocyte % 37.4 % (19-41); Mean Corpuscular Volume 90.8 fL (81-99); Mean Platelet Vol. 9.9 fl (6.2-12.0); Monocyte# 0.42 X10^3/uL; Monocyte% 5.9 % (0-10); NRBC Flagged by Analyzer 0 % (0-5); Neutrophil # 3.86 X10^3/uL (2.7-7.7); Neutrophil % 54.7 % (47-70); Platelet Count 332 K/mm3 (150-450); RBC Distribution Width CV 13.2 % (11.6-14.6); RBC Distribution Width SD 44.4 fl (35.1-43.9); Red Blood Count 4.58 M/mm3 (4.2-5.4); White Blood Count 7.1 K/mm3 (4.4-11.0)
[2022-03-03 12:24] LABS: Anion Gap 6 (5-15); BUN 17 mg/dL (7-18); BUN/Creat Ratio 15.6 RATIO (10-20); Calcium,Total 9.1 mg/dL (8.5-10.1); Chloride 106 mmol/L (98-107); Creatinine, Serum 1.09 mg/dL (0.55-1.02); EST Glomerular Filtration Rate 53 mL/min (>60); Est Glom Filt Rate - Afr Amer 64 mL/min (>60); Glucose 96 mg/dL (74-106); Potassium 4.1 mmol/L (3.5-5.1); Sodium Level 139 mmol/L (136-145)
== END | disposition home or self-care (01) ==
LOC: LAB 11:36
PROVIDERS: PCP Internal Medicine; Referring Provider Nurse Practitioner Gerontology; Visit Provider Nurse Practitioner Gerontology
DX: I10 Essential (primary) hypertension (principal); R53.83 Other fatigue
CPT/HCPCS: 36415; 80048; 85025

== ENCOUNTER → 2022-04-18 | Outpatient (CLI) | payer BC, SELFPAY ==
--- NOTE | 2022-04-18 08:11 | RAD_ITS ---
STUDY: X-RAY - ABDOMEN/PELVIS REASON FOR EXAM: Female, 66 years old. constipation, sitz marker day 3 TECHNIQUE: Single AP view of the abdomen / pelvis. COMPARISON: 02/29/2020 FINDINGS: Retained radiopaque markers are identified, predominantly in the splenic flexure more than rectosigmoid junction. There are total of 15 remaining markers. There is an unremarkable bowel gas pattern. There is no demonstrated free abdominal air. The visualized liver, spleen and kidneys are grossly normal in size and morphology. Calcified retroperitoneal and pelvic lymph nodes, as seen on prior CT. Normal visualized osseous structures. RAD/Abdomen Single View IMPRESSION: 15 retained markers, predominantly in the splenic flexure region. Electronically Signed: Paresh Marquez MD ([place]) at 20:56 EDT ,
== END | disposition home or self-care (01) ==
LOC: RAD 08:10
PROVIDERS: PCP Internal Medicine; Referring Provider Nurse Practitioner Adult Health; Visit Provider Nurse Practitioner Adult Health
DX: R19.8 Other specified symptoms and signs involving the digestive system and abdomen (principal)
CPT/HCPCS: 74018

== ENCOUNTER → 2022-04-20 | Outpatient (CLI) | payer BC, SELFPAY ==
--- NOTE | 2022-04-20 15:55 | RAD_ITS ---
EXAM: XR ABDOMEN, 1 VIEW CLINICAL INDICATION: constipation, sitz marker day 5 TECHNIQUE: Frontal supine view of the abdomen/pelvis. This report was created using [email or web address] report generation technology. COMPARISON: 04.18.22. FINDINGS: LOWER THORAX: No acute pathology. GASTROINTESTINAL TRACT: There are multiple metallic clips in the right upper quadrant. This is consistent for a cholecystectomy. Sitz markers are no longer seen. Non-obstructive. No bowel or stomach distention. ORGANS: Unremarkable as visualized. No organomegaly. No abnormal calcifications. BONES/JOINTS: No acute pathology. SOFT TISSUES: No acute pathology. RAD/Abdomen Single View IMPRESSION: Non-obstructive bowel gas pattern. Sitz markers are no longer seen. Electronically Signed: Jf Palm MD at 18:32 EDT ,
== END | disposition home or self-care (01) ==
LOC: RAD 15:52
PROVIDERS: PCP Internal Medicine; Referring Provider Nurse Practitioner Adult Health; Visit Provider Nurse Practitioner Adult Health
DX: R19.8 Other specified symptoms and signs involving the digestive system and abdomen (principal)
CPT/HCPCS: 74018

== ENCOUNTER → 2022-04-28 | Outpatient (CLI) | payer BC, SELFPAY ==
--- NOTE | 2022-04-28 10:23 | NM_ITS ---
CLINICAL: 67-year-old female with uncontrolled GERD GASTRIC EMPTYING-SULFUR COLLOID TECHNIQUE: The patient was orally administered 1.1 mCi of Tc-sulfur colloid in oatmeal. Gamma camera imaging acquisitions at 1-60 minutes post radiopharmaceutical administration was performed. COMPARISON STUDIES : NM - None. CR - Not available for review at this time. CT - Not available for review at this time. MR - Not available for review at this time. FINDINGS: There is normal filling of the stomach. No gastroesophageal reflux with documented passage into the small bowel. T 1/2 measures 162 minutes, prolonged. NM/Gastric Emptying Study IMPRESSION: Prolonged gastric emptying suggesting gastroparesis. Electronically Signed: Paresh Marquez MD ([place]) at 14:06 EDT ,
== END | disposition home or self-care (01) ==
PROVIDERS: PCP Internal Medicine; Referring Provider Nurse Practitioner Adult Health; Visit Provider Nurse Practitioner Adult Health
DX: K91.1 Postgastric surgery syndromes (principal); K21.9 Gastro-esophageal reflux disease without esophagitis
CPT/HCPCS: 78264; A9541

== ENCOUNTER 2022-09-19 10:47 | Outpatient (CLI) | payer BC, SELFPAY ==
[2022-09-19 11:29] LABS: Hemoglobin A1c 5.9 % (3.8-5.6)
[2022-09-19 11:42] LABS: ALB/GLOB Ratio 0.8 RATIO (0.9-2.4); AST(SGOT) 17 U/L (15-37); Alanine Aminotransfer ALT/SGPT 26 U/L (13-56); Albumin, Serum 3.5 g/dL (3.2-5.0); Alkaline Phosphatase 96 U/L (45-117); Anion Gap 5 (5-15); BUN 18 mg/dL (7-18); BUN/Creat Ratio 12.8 RATIO (10-20); Calcium,Total 9.3 mg/dL (8.5-10.1); Chloride 105 mmol/L (98-107); Creatinine, Serum 1.41 mg/dL (0.55-1.02); EST Glomerular Filtration Rate 39 mL/min (>60); Est Glom Filt Rate - Afr Amer 48 mL/min (>60); Free T3 2.4 pg/mL (2.18-3.98); Globulin 4.4 g/dL (2.2-4.2); Glucose 98 mg/dL (74-106); Potassium 3.7 mmol/L (3.5-5.1); Protein, Total 7.9 g/dL (6.4-8.2); Sodium Level 140 mmol/L (136-145); T4 Free Direct 1.01 ng/dL (0.76-1.46); Thyroid Stim Hormone (TSH) 0.78 uIU/mL (0.358-3.74)
[2022-09-21 10:00] LABS: Vitamin D,25 Hydroxy 64.5 ng/mL
== END 2022-09-19 23:59 | disposition home or self-care (01) ==
LOC: LAB 10:48
PROVIDERS: PCP Internal Medicine; Referring Provider Internal Medicine Endocrinology, Diabetes & Metabolism; Visit Provider Internal Medicine Endocrinology, Diabetes & Metabolism
DX: E03.9 Hypothyroidism, unspecified (principal); E04.9 Nontoxic goiter, unspecified; E55.9 Vitamin D deficiency, unspecified; I10 Essential (primary) hypertension
CPT/HCPCS: 36415; 80053; 82306; 83036; 84439; 84443; 84481

== ENCOUNTER → 2022-10-12 | Outpatient (CLI) | payer BC, SELFPAY ==
[2022-10-12 15:16] LABS: Anion Gap 8 (5-15); BUN 26 mg/dL (7-18); BUN/Creat Ratio 18.4 RATIO (10-20); Calcium,Total 9.3 mg/dL (8.5-10.1); Chloride 104 mmol/L (98-107); Creatinine, Serum 1.41 mg/dL (0.55-1.02); EST Glomerular Filtration Rate 39 mL/min (>60); Est Glom Filt Rate - Afr Amer 48 mL/min (>60); Glucose 102 mg/dL (74-106); Potassium 3.9 mmol/L (3.5-5.1); Sodium Level 141 mmol/L (136-145)
== END | disposition home or self-care (01) ==
PROVIDERS: PCP Internal Medicine; Referring Provider Urology; Visit Provider Urology
DX: R35.1 Nocturia (principal)
CPT/HCPCS: 36415; 80048

== ENCOUNTER → 2022-10-17 | Outpatient (CLI) | payer BC, SELFPAY ==
--- NOTE | 2022-10-17 11:13 | US_ITS ---
HISTORY: Renal insufficiency. TECHNIQUE: Banuelos scale and color doppler images were obtained of the kidneys. 83 images. COMPARISON: CT 02/29/2020. FINDINGS: RIGHT KIDNEY: 11.8 cm in length with a cortical thickness of 1.8 cm. Echogenicity unremarkable. No hydronephrosis. 6.3 x 7.3 x 7.3 cm lower pole cyst. LEFT KIDNEY: 10.9 cm in length with a cortical thickness of 1.8 cm. Echogenicity unremarkable. No hydronephrosis. No gross renal mass demonstrated. URINARY BLADDER: Unremarkable at 269 cc with a wall thickness of 3 mm. Bilateral ureteral jets visualized. US/Kidney and Bladder IMPRESSION: 7.8 cm right renal cyst. No hydronephrosis. Electronically Signed: Ely Hsieh MD at 13:24 EST ,
== END | disposition home or self-care (01) ==
LOC: US 11:12
PROVIDERS: PCP Internal Medicine; Visit Provider Urology
DX: N28.1 Cyst of kidney, acquired (principal)
CPT/HCPCS: 76770

== ENCOUNTER → 2022-10-20 | Outpatient (CLI) | payer BC, SELFPAY ==
[2022-10-20 18:21] LABS: Anion Gap 4 (5-15); BUN 24 mg/dL (7-18); BUN/Creat Ratio 17.6 RATIO (10-20); Calcium,Total 9.4 mg/dL (8.5-10.1); Chloride 103 mmol/L (98-107); Creatinine, Serum 1.36 mg/dL (0.55-1.02); EST Glomerular Filtration Rate 41 mL/min (>60); Est Glom Filt Rate - Afr Amer 50 mL/min (>60); Glucose 95 mg/dL (74-106); Potassium 4.2 mmol/L (3.5-5.1); Sodium Level 137 mmol/L (136-145)
== END | disposition home or self-care (01) ==
LOC: MTLAB 15:50
PROVIDERS: PCP Internal Medicine; Referring Provider Urology; Visit Provider Urology
DX: R35.1 Nocturia (principal)
CPT/HCPCS: 36415; 80048

== ENCOUNTER → 2022-12-09 | Outpatient (CLI) | payer BC, SELFPAY ==
[2022-12-09 18:11] LABS: Anion Gap 8 (5-15); BUN 32 mg/dL (7-18); BUN/Creat Ratio 18.8 RATIO (10-20); Calcium,Total 9.3 mg/dL (8.5-10.1); Chloride 103 mmol/L (98-107); EST Glomerular Filtration Rate 32 mL/min (>60); Est Glom Filt Rate - Afr Amer 38 mL/min (>60); Glucose 103 mg/dL (74-106); Potassium 3.6 mmol/L (3.5-5.1); Sodium Level 139 mmol/L (136-145)
== END | disposition home or self-care (01) ==
PROVIDERS: PCP Internal Medicine; Referring Provider Urology; Visit Provider Urology
DX: R35.1 Nocturia (principal)
CPT/HCPCS: 36415; 80048

== ENCOUNTER → 2023-01-27 | Outpatient (CLI) | payer BC, SELFPAY ==
[2023-01-27 18:34] LABS: Albumin, Serum 3.7 g/dL (3.2-5.0); BUN 20 mg/dL (7-18); BUN/Creat Ratio 18.5 RATIO (10-20); Calcium,Total 9.8 mg/dL (8.5-10.1); Chloride 103 mmol/L (98-107); Creatinine, Serum 1.08 mg/dL (0.55-1.02); EST Glomerular Filtration Rate 53 mL/min (>60); Est Glom Filt Rate - Afr Amer 65 mL/min (>60); Glucose 92 mg/dL (74-106); Potassium 3.5 mmol/L (3.5-5.1); Sodium Level 138 mmol/L (136-145)
[2023-01-29 14:51] LABS: ANTINUCLEAR ANTIBODIES DIRECT Negative (Negative)
[2023-01-29 15:08] LABS: Cytoplasmic Ab (C-ANCA) <1:20 titer (Neg:<1:20)
[2023-01-29 15:10] LABS: Perinuclear Ab (P-ANCA) <1:20 titer (Neg:<1:20)
== END | disposition home or self-care (01) ==
LOC: POLAB3 14:20
PROVIDERS: Nurse Practitioner Gerontology; PCP Internal Medicine; Visit Provider Internal Medicine Nephrology
DX: N17.9 Acute kidney failure, unspecified (principal); R31.29 Other microscopic hematuria; I10 Essential (primary) hypertension
CPT/HCPCS: 36415; 80069; 86038; 86256

== ENCOUNTER → 2023-02-22 | Outpatient (CLI) | payer BC, SELFPAY ==
[2023-02-22 15:59] LABS: Hematocrit 37.1 % (37-47); Hemoglobin 12.1 g/dL (12.0-15.0); Mean Corp Hgb Conc 32.6 g/dL (32-36); Mean Corpuscular Hgb 29.7 pg (27.0-32.0); Mean Corpuscular Volume 90.9 fL (81-99); Mean Platelet Vol. 9.8 fl (6.2-12.0); Platelet Count 328 K/mm3 (150-450); RBC Distribution Width CV 13.3 % (11.6-14.6); RBC Distribution Width SD 44.5 fl (35.1-43.9); Red Blood Count 4.08 M/mm3 (4.2-5.4); White Blood Count 12.2 K/mm3 (4.4-11.0)
[2023-02-22 16:23] LABS: Albumin, Serum 3.6 g/dL (3.2-5.0); BUN 29 mg/dL (7-18); BUN/Creat Ratio 22.1 RATIO (10-20); Calcium,Total 9.4 mg/dL (8.5-10.1); Chloride 103 mmol/L (98-107); Creatinine, Serum 1.31 mg/dL (0.55-1.02); EST Glomerular Filtration Rate 43 mL/min (>60); Est Glom Filt Rate - Afr Amer 52 mL/min (>60); Glucose 94 mg/dL (74-106); Phosphorus 3.6 mg/dL (2.5-4.9); Potassium 3.5 mmol/L (3.5-5.1); Sodium Level 135 mmol/L (136-145)
[2023-02-22 16:27] LABS: Partial Thromboplast Time 31.6 Seconds (24.1-36.2); Prothrombin Time (Protime)PT. 13.2 SECONDS (11.7-14.9)
== END | disposition home or self-care (01) ==
LOC: LAB 15:06
PROVIDERS: PCP Internal Medicine; Referring Provider Internal Medicine Nephrology; Visit Provider Internal Medicine Nephrology
DX: N17.9 Acute kidney failure, unspecified (principal); N18.32 Chronic kidney disease, stage 3b
CPT/HCPCS: 36415; 80069; 85027; 85610; 85730

== ENCOUNTER → 2023-03-03 | Outpatient (CLI) | payer MEDICARE, SELFPAY ==
[2023-03-03 11:36] LABS: Mucous, Urine 0 SEEN /hpf (<or=2+)
[2023-03-03 12:24] LABS: Color, Urine Yellow (Yellow); Glucose, Dipstick Normal (Normal); Ketone-Dipstick Negative (Negative); Leukocyte Esterase-Dipstick 500 /ul (Negative); Nitrite-Dipstick Negative (Negative); Occult Blood-Urine 50 /ul (Negative); Protein-Dipstick Negative (Negative); Urine Bilirubin Dipstick Negative (Negative); Urine Clarity Sl. Cloudy (Clear); Urine Urobilinogen Normal (Normal); Urine pH 6.5 (5.0 - 8.0)
[2023-03-03 12:26] LABS: Albumin, Serum 3.4 g/dL (3.2-5.0); BUN 21 mg/dL (7-18); BUN/Creat Ratio 15.9 RATIO (10-20); Calcium,Total 9.5 mg/dL (8.5-10.1); Chloride 103 mmol/L (98-107); Creatinine, Serum 1.32 mg/dL (0.55-1.02); EST Glomerular Filtration Rate 42 mL/min (>60); Est Glom Filt Rate - Afr Amer 51 mL/min (>60); Glucose 96 mg/dL (74-106); Phosphorus 2.6 mg/dL (2.5-4.9); Potassium 3.6 mmol/L (3.5-5.1); Sodium Level 139 mmol/L (136-145)
[2023-03-03 12:36] LABS: Bacteria 1+ /hpf (None Seen); Red Blood Cells-Urine 0-5 SEEN /hpf (0-5); Squamous Epithelial Cells - UA 0-5 SEEN /hpf (5-10); White Blood Cells 25-50 SEEN /hpf (0-5)
== END | disposition home or self-care (01) ==
LOC: LAB 11:30
PROVIDERS: PCP Internal Medicine; Referring Provider Internal Medicine Nephrology; Visit Provider Internal Medicine Nephrology
DX: R31.29 Other microscopic hematuria (principal); N18.32 Chronic kidney disease, stage 3b
CPT/HCPCS: 36415; 80069; 81001

== ENCOUNTER → 2023-04-13 | Outpatient (CLI) | payer OTHER, MEDICARE, SELFPAY ==
[2023-04-13 12:53] LABS: Vitamin D,25 Hydroxy 60.9 ng/mL
[2023-04-13 12:54] LABS: Hemoglobin A1c 5.9 % (3.8-5.6)
[2023-04-13 12:59] LABS: Microalbumin,Random Urine 9.2 mg/L (NO RANGE EST.)
[2023-04-13 13:16] LABS: ALB/GLOB Ratio 0.7 RATIO (0.9-2.4); AST(SGOT) 16 U/L (15-37); Alanine Aminotransfer ALT/SGPT 34 U/L (13-56); Albumin, Serum 3.2 g/dL (3.2-5.0); Alkaline Phosphatase 103 U/L (45-117); Anion Gap 6 (5-15); BUN 19 mg/dL (7-18); BUN/Creat Ratio 14.4 RATIO (10-20); Calcium,Total 9.3 mg/dL (8.5-10.1); Chloride 104 mmol/L (98-107); Cholesterol 228 mg/dL (200); Creatinine, Serum 1.32 mg/dL (0.55-1.02); EST Glomerular Filtration Rate 42 mL/min (>60); Est Glom Filt Rate - Afr Amer 51 mL/min (>60); Free T3 3.2 pg/mL (2.18-3.98); Globulin 4.6 g/dL (2.2-4.2); Glucose 104 mg/dL (74-106); High Density Lipoprotein 88 mg/dL; Potassium 3.6 mmol/L (3.5-5.1); Protein, Total 7.8 g/dL (6.4-8.2); Sodium Level 139 mmol/L (136-145); Thyroid Stim Hormone (TSH) 0.52 uIU/mL (0.358-3.74); Triglycerides 71 mg/dL; Very Low Density Lipoprotein 14 mg/dL (5-40)
== END | disposition home or self-care (01) ==
LOC: LAB 11:19
PROVIDERS: PCP Internal Medicine; Referring Provider Internal Medicine Endocrinology, Diabetes & Metabolism; Visit Provider Internal Medicine Endocrinology, Diabetes & Metabolism
DX: E03.9 Hypothyroidism, unspecified (principal); E04.9 Nontoxic goiter, unspecified; I10 Essential (primary) hypertension; E55.9 Vitamin D deficiency, unspecified; R73.03 Prediabetes
CPT/HCPCS: 36415; 80053; 80061; 82043; 82306; 83036; 84443; 84481

== ENCOUNTER → 2023-07-12 | Outpatient (CLI) | payer OTHER, MEDICARE, SELFPAY ==
[2023-07-12 14:05] LABS: Albumin, Serum 3.5 g/dL (3.2-5.0); BUN 16 mg/dL (7-18); BUN/Creat Ratio 13.3 RATIO (10-20); Calcium,Total 9.1 mg/dL (8.5-10.1); Chloride 105 mmol/L (98-107); EST Glomerular Filtration Rate 47 mL/min (>60); Est Glom Filt Rate - Afr Amer 57 mL/min (>60); Glucose 104 mg/dL (74-106); Phosphorus 3.3 mg/dL (2.5-4.9); Potassium 3.5 mmol/L (3.5-5.1); Sodium Level 140 mmol/L (136-145)
== END | disposition home or self-care (01) ==
LOC: LAB 12:48
PROVIDERS: PCP Internal Medicine; Referring Provider Internal Medicine Nephrology; Visit Provider Internal Medicine Nephrology
DX: N17.9 Acute kidney failure, unspecified (principal)
CPT/HCPCS: 36415; 80069

== ENCOUNTER → 2023-10-04 | Outpatient (CLI) | payer OTHER, MEDICARE, SELFPAY ==
[2023-10-04 14:24] LABS: Microalbumin,Random Urine 7.4 mg/L (NO RANGE EST.)
[2023-10-04 14:28] LABS: Vitamin B12 834 pg/mL (211-911); Vitamin D,25 Hydroxy 64.3 ng/mL
[2023-10-04 15:05] LABS: ALB/GLOB Ratio 0.8 RATIO (0.9-2.4); AST(SGOT) 22 U/L (15-37); Alanine Aminotransfer ALT/SGPT 30 U/L (13-56); Albumin, Serum 3.5 g/dL (3.2-5.0); Alkaline Phosphatase 103 U/L (45-117); Anion Gap 6 (5-15); BUN 23 mg/dL (7-18); BUN/Creat Ratio 15.5 RATIO (10-20); Calcium,Total 9.5 mg/dL (8.5-10.1); Chloride 103 mmol/L (98-107); Cholesterol 217 mg/dL (200); Creatinine, Serum 1.48 mg/dL (0.55-1.02); EST Glomerular Filtration Rate 37 mL/min (>60); Est Glom Filt Rate - Afr Amer 45 mL/min (>60); Ferritin 229 ng/mL (8-252); Free T3 2.3 pg/mL (2.18-3.98); Globulin 4.6 g/dL (2.2-4.2); Glucose 107 mg/dL (74-106); High Density Lipoprotein 85 mg/dL; Iron 44 ug/dL (50-170); Iron Binding Capacity,Total 428 ug/dL (250-450); PERCENT IRON SATURATION 10.3 % (15.0-55.0); Potassium 3.4 mmol/L (3.5-5.1); Protein, Total 8.1 g/dL (6.4-8.2); Sodium Level 138 mmol/L (136-145); T4 Free Direct 1.11 ng/dL (0.76-1.46); Thyroid Stim Hormone (TSH) 0.35 uIU/mL (0.358-3.74); Triglycerides 65 mg/dL; Very Low Density Lipoprotein 13 mg/dL (5-40)
[2023-10-04 15:29] LABS: Hemoglobin A1c 5.8 % (3.8-5.6)
== END | disposition home or self-care (01) ==
PROVIDERS: PCP Internal Medicine; Referring Provider Internal Medicine Endocrinology, Diabetes & Metabolism; Visit Provider Internal Medicine Endocrinology, Diabetes & Metabolism
DX: E03.9 Hypothyroidism, unspecified (principal); R73.03 Prediabetes; E04.9 Nontoxic goiter, unspecified; I10 Essential (primary) hypertension; E55.9 Vitamin D deficiency, unspecified
CPT/HCPCS: 36415; 80053; 80061; 82043; 82306; 82570; 82607; 82728; 82746; 83036; 83540; 83550; 84439; 84443; 84481

== ENCOUNTER → 2024-03-09 | Outpatient (CLI) | payer MEDICARE, OTHER, SELFPAY ==
--- NOTE | 2024-03-09 10:15 | EKG12_ITS ---
Test Reason : PRE-OP Blood Pressure : / mmHG Vent. Rate : 098 BPM Atrial Rate : 098 BPM P-R Int : 142 ms QRS Dur : 072 ms QT Int : 354 ms P-R-T Axes : 058 009 043 degrees QTc Int : 451 ms Normal sinus rhythm Normal ECG Confirmed by MERCEDEZ COSTELLO, SHARLENE ([id number]), fan mail editor TALI DARNELL ([id number]) on 03/10/2024 6:40:17 AM Referred By: Hayley Levi Confirmed By:SHARLENE NEWSOME MD
--- NOTE | 2024-03-09 10:28 | RAD_ITS ---
STUDY: X-RAY CHEST REASON FOR EXAM: Female, 68 years old. Preoperative evaluation. TECHNIQUE: Frontal and lateral views of the chest. COMPARISON: None. FINDINGS: The lungs are clear and expanded. There is no demonstrated pleural abnormality. Normal size heart. Normal mediastinum and haroldo. Normal visualized pulmonary arteries. Normal visualized aortic arch and descending thoracic aorta. Mild diffuse thoracic spondylosis. Normal visualized ribs, clavicles, and shoulders. No abnormality of the visualized soft tissue structures of the upper abdomen. RAD/Chest PA and Lateral IMPRESSION: No active or acute cardiopulmonary disease. Electronically Signed: Daniel Bejarano MD at 10:39 EDT ,
--- NOTE | 2024-03-09 10:32 | CT_ITS ---
CT LEFT LOWER EXTREMITY WITH 3-D IMAGING CLINICAL INDICATION: PRE OP WASC TECHNIQUE: Axial CT images of the LEFT lower extremity was performed without IV contrast material. Coronal and sagittal reformats were provided. RADIATION DOSAGE (If Supplied By Facility): CTDIvol = ( 24.25 ) mGy, DLP = ( 1734.53 ) mGycm COMPARISON: No relevant prior comparison study available FINDINGS: Bones: Imaging of the left hip joint was obtained. There is a mild degree of joint space narrowing. No evidence of fracture. There is evidence of degenerative changes of the sacroiliac joints bilaterally worse on the left side. There is also evidence of a vascular calcifications within the soft tissues of the pelvis. Degenerative changes of the symphysis pubis. Imaging of the knee joint was obtained. There is a marked degree of joint space narrowing with subchondral sclerosis along the medial compartment of the knee joint. No significant joint effusion is seen. Minimal narrowing of the patellofemoral joint. Imaging of the ankle joint was obtained. No abnormality is seen. Soft Tissues: The deep soft tissue structures are unremarkable. The superficial soft tissues are unremarkable without evidence of edema, hematoma, or foreign body. CT/Extremity Lower without Contra IMPRESSION: Marked degree of joint space narrowing with subchondral sclerosis along the medial compartment of the knee joint. Electronically Signed: Burt Rice MD at 9:42 EDT ,
== END | disposition home or self-care (01) ==
PROVIDERS: PCP Internal Medicine; Referring Provider Physician Assistant; Visit Provider Physician Assistant
DX: Z01.818 Encounter for other preprocedural examination (principal); M25.562 Pain in left knee; Z01.810 Encounter for preprocedural cardiovascular examination; Z01.811 Encounter for preprocedural respiratory examination
CPT/HCPCS: 71046; 73700; 93005

== ENCOUNTER → 2024-03-24 | Outpatient (CLI) | payer MEDICARE, OTHER, SELFPAY ==
[2024-03-24 10:52] LABS: Absolute Lymphocyte Count 3.04 X10^3/uL (0.83-4.51); Absolute Neutrophil Count 6.9 X10^3/uL (2.0-7.7); Basophil# 0.04 X10^3/uL; Basophil% 0.4 % (0-1); Eosinophil# 0.11 X10^3/uL; Hematocrit 39.1 % (37-47); Hemoglobin 12.7 g/dL (12.0-15.0); Lymphocyte # 3.04 X10^3/ul (0.83-4.51); Mean Corp Hgb Conc 32.5 g/dL (32-36); Mean Corpuscular Hgb 29.1 pg (27.0-32.0); Mean Corpuscular Volume 89.5 fL (81-99); Mean Platelet Vol. 9.8 fl (6.2-12.0); Monocyte# 0.69 X10^3/uL; Monocyte% 6.4 % (0-10); NRBC Flagged by Analyzer 0 % (0-5); Neutrophil # 6.92 X10^3/uL (2.7-7.7); Neutrophil % 63.8 % (47-70); Platelet Count 346 K/mm3 (150-450); RBC Distribution Width CV 13.5 % (11.6-14.6); RBC Distribution Width SD 44.3 fl (35.1-43.9); Red Blood Count 4.37 M/mm3 (4.2-5.4); White Blood Count 10.8 K/mm3 (4.4-11.0)
[2024-03-24 11:08] LABS: Hemoglobin A1c 5.8 % (3.8-5.6)
[2024-03-24 11:21] LABS: ALB/GLOB Ratio 0.8 RATIO (0.9-2.4); AST(SGOT) 23 U/L (15-37); Alanine Aminotransfer ALT/SGPT 31 U/L (13-56); Albumin, Serum 3.5 g/dL (3.2-5.0); Alkaline Phosphatase 101 U/L (45-117); Anion Gap 9 (5-15); BUN 18 mg/dL (7-18); BUN/Creat Ratio 12.9 RATIO (10-20); Calcium,Total 9.5 mg/dL (8.5-10.1); Chloride 104 mmol/L (98-107); EST Glomerular Filtration Rate 39 mL/min (>60); Est Glom Filt Rate - Afr Amer 48 mL/min (>60); Free T3 3.1 pg/mL (2.18-3.98); Globulin 4.6 g/dL (2.2-4.2); Glucose 111 mg/dL (74-106); Potassium 3.3 mmol/L (3.5-5.1); Protein, Total 8.1 g/dL (6.4-8.2); Sodium Level 139 mmol/L (136-145); T4 Free Direct 1.08 ng/dL (0.76-1.46); Thyroid Stim Hormone (TSH) 0.71 uIU/mL (0.358-3.74)
[2024-03-24 13:43] LABS: Vitamin D,25 Hydroxy 66.4 ng/mL
== END | disposition home or self-care (01) ==
LOC: LAB 09:42
PROVIDERS: PCP Internal Medicine; Referring Provider Physician Assistant; Visit Provider Physician Assistant
DX: E03.9 Hypothyroidism, unspecified (principal); R73.03 Prediabetes; E04.9 Nontoxic goiter, unspecified; E55.9 Vitamin D deficiency, unspecified; G62.9 Polyneuropathy, unspecified
CPT/HCPCS: 36415; 80053; 82306; 83036; 84439; 84443; 84481; 85025

== ENCOUNTER → 2024-04-13 | Outpatient (CLI) | payer OTHER, MEDICARE, SELFPAY ==
[2024-04-13 16:23] LABS: Anion Gap 4 (5-15); BUN 20 mg/dL (7-18); BUN/Creat Ratio 14.1 RATIO (10-20); Calcium,Total 9.6 mg/dL (8.5-10.1); Chloride 104 mmol/L (98-107); Creatinine, Serum 1.42 mg/dL (0.55-1.02); EST Glomerular Filtration Rate 39 mL/min (>60); Est Glom Filt Rate - Afr Amer 47 mL/min (>60); Glucose 103 mg/dL (74-106); Potassium 3.3 mmol/L (3.5-5.1); Sodium Level 139 mmol/L (136-145)
== END | disposition home or self-care (01) ==
LOC: MTLAB 11:34
PROVIDERS: PCP Internal Medicine; Referring Provider Physician Assistant; Visit Provider Physician Assistant
DX: I10 Essential (primary) hypertension (principal)
CPT/HCPCS: 36415; 80048

== ENCOUNTER 2024-05-08 05:18 | Day surgery (SDC) | payer OTHER, MEDICARE, SELFPAY ==
[2024-04-27 11:53] LABS: Magnesium 2.2 mg/dL (1.6-2.6)
[2024-05-08] VITALS (14 sets, daily range): BP systolic 80–140; BP diastolic 55–78; PULSE 67–89; RESP 16–18; TEMP 35.7–36.4; O2SAT 93–100; BMI 29.5
[2024-05-08] MEDS: Lactated Ringers 1,000 ML 15 ML IV ×3 (06:13→17:35)
[2024-05-08] MEDS: Gabapentin 600 MG Tablet PO (06:14)
[2024-05-08] MEDS: Celecoxib 200 MG Capsule 400 MG PO (06:14)
[2024-05-08] MEDS: Acetaminophen 500 MG Tablet 1000 MG PO ×2 (06:14→17:37)
[2024-05-08] MEDS: Magnesium 1 GM over 15 mins IV (06:14)
--- NOTE | 2024-05-08 07:00 | PRE.ANES_ITS ---
ASA Classification* ASA Classification ASA Classification: 2 Assessment & Plan Anesthesia* Anesthesia Assessment Anesthesia Assessment: Discussed sedation and/or anesthesia options, risks, benefits, and alternatives with patient/parents/legal guardian/POA. Questions invited. The patient/parents/legal guardian/POA seems to understand and agrees to proceed with anesthesia plan. Reviewed the physical assessment, medical history, allergy history and patient home medications list prior to surgery/procedure/anesthetic and documented any changes. Performed airway and anesthesia risk assessments. Anesthesia Type Anesthesia Type: Spinal (Block for post op pain) Anesthesia Focused Assessment* Temperature: 97.5 F Pulse Rate: 89 Blood Pressure: 128/70 Respiratory Rate: 18 Pulse Ox: 97 Airway Assessment Mouth opens: >3 cm Mallampati Score: II Focused Labs Anesthesia Preop lab: CBC WBC 10.8 K/mm3 (4.4-11.0) 03/24/24 09:47 RBC 4.37 M/mm3 (4.2-5.4) 03/24/24 09:47 Hgb 12.7 g/dL (12.0-15.0) 03/24/24 09:47 Hct 39.1 % (37-47) 03/24/24 09:47 Plt Count 346 K/mm3 (150-450) 03/24/24 09:47 CHEMISTRY Potassium 3.3 mmol/L (3.5-5.1) L 04/13/24 11:36 Sodium 139 mmol/L (136-145) 04/13/24 11:36 Magnesium 2.2 mg/dL (1.6-2.6) 04/27/24 11:05 Phosphorus 3.3 mg/dL (2.5-4.9) 07/12/23 12:51 BUN 20 mg/dL (7-18) H 04/13/24 11:36 Creatinine 1.42 mg/dL (0.55-1.02) H 04/13/24 11:36 Glucose 103 mg/dL (74-106) 04/13/24 11:36 TSH 0.50 uIU/mL (0.358-3.74) 04/27/24 11:05 COAG PT 13.2 SECONDS (11.7-14.9) 02/22/23 15:10 Pre-Assessment Diagnosis/Proposed Procedure Planned Operative Procedure(s): LEFT TOTAL KNEE REPLACEMENT Anesthesia History Anesthesia History - assistant producer: 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 When Was Last Pacemaker Check QUESTION #4 FULL TEXT: You/Your Family Experience fever (hyperthermia) with Anesthesia Last Oral Intake Last Oral intake: Last Oral Intake NPO since 21:00 05/08/24 06:09 Meds taken in AM with sips of No 05/08/24 06:09 water? Meds patient instructed to take am of surgery PONV PONV - assistant producer: PONV - assistant producer Female Yes 04/26/24 13:33 HX of Motion Sickness No 04/26/24 13:33 HX of N/V After Surgery No 04/26/24 13:33 Non-Smoker Yes 04/26/24 13:33 Duration of Surgery greater Yes 04/26/24 13:33 than 60 minutes Number of Risk Factors 3 04/26/24 13:33 PONV Score Moderate Risk 04/26/24 13:33 Height & Weight Height & Weight: Anesthesia: Height & Weight Height 5 ft 05/08/24 06:09 Weight: 68.583 kg 05/08/24 06:09 Body Mass Index (BMI) 29.5 05/08/24 06:09 Respiratory Assessment Respiratory Assessment - assistant producer: Respiratory Tract Infection Hx - assistant producer Hx Respiratory Tract Infection No 04/26/24 13:33 STOP Sleep Apnea STOP Sleep Apnea - assistant producer: STOP Sleep Apnea - assistant producer Hx Hypertension Yes: CONTROLLED WITH MED 04/26/24 13:33 Hx Sleep Apnea No 04/26/24 13:33 CPAP BIPAP Do you snore loudly (louder No 04/26/24 13:33 than talking or can be heard Do you often feel tired/ No 04/26/24 13:33 fatigued/ sleepy during daytime? Has anyone observed you stop No 04/26/24 13:33 breathing during sleep? STOP Results Negative 04/26/24 13:33 QUESTION #5 FULL TEXT : Do you snore loudly (louder than talking or can be heard through closed doors)? 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 Specify any problems Hx of Preganancy in last 3 No 04/26/24 13:33 Months Nurse Filling Out Transfusion DSCHRIBER 04/26/24 13:33 & Questions: Date: 04/26/24 04/26/24 13:33 Time: 13:34 04/26/24 13:33 Patient unable to answer at this time (ie. confused, unrespo /Reproduction History /Reproductive History - assistant producer: /Reproductive Hx- assistant producer Hx Now Gestational Age (in weeks): EDC: Hx Hx Para Hx Section SAB No 04/26/24 13:33 Active Medications Active Medications: Current Medications Generic Name Dose Route Start Last Admin Trade Name Sara PRN Reason Stop Dose Admin Acetaminophen 1,000 mg 05/08/24 07:30 05/08/24 06:14 Acetaminophen 500 Mg Tablet PO 05/08/24 07:31 1,000 mg X1 ONE Administration Celecoxib 400 mg 05/08/24 07:30 05/08/24 06:14 Celecoxib 200 Mg Capsule PO 05/08/24 07:31 400 mg X1 ONE Administration Sodium Chloride 77.4 ml/ 0 ml 05/08/24 07:30 Ropivacaine 200 mg/ OPERA.SITE 05/08/24 07:31 Epinephrine HCl 0.6 mg/ X1 ONE Ketorolac Tromethamine 30 mg/ Morphine Sulfate 5 mg Dexamethasone Sodium Phosphate 10 mg 05/08/24 07:30 Dexamethasone 10 Mg/Ml Vial IV 05/08/24 07:31 X1 ONE Gabapentin 600 mg 05/08/24 07:30 05/08/24 06:14 Gabapentin 600 Mg Tablet PO 05/08/24 07:31 600 mg X1 ONE Administration Cefazolin Sodium 2 gm/ Sodium 110 mls @ 150 mls/hr 05/08/24 07:30 Chloride IV 05/08/24 08:13 PREOP ONE Tranexamic Acid 1,000 mg/ 110 mls @ 660 mls/hr 05/08/24 07:30 Sodium Chloride IV 05/08/24 07:39 X1 ONE Tranexamic Acid 1,000 mg/ 110 mls @ 660 mls/hr 05/08/24 07:30 Sodium Chloride IV 05/08/24 07:39 X1 ONE Magnesium Sulfate 1 gm/ 102 mls @ 408 mls/hr 05/08/24 07:30 05/08/24 06:14 Dextrose IV 05/08/24 07:44 408 mls/hr X1 ONE Administration Lactated Ringer's 1,000 mls @ 15 mls/hr 05/08/24 05:45 05/08/24 06:13 IV 15 mls/hr .Q48H RAOUL Administration Insulin Human Lispro 1 - 6 unit 05/08/24 07:30 Insulin Lispro 100 Unit/Ml Insuln.Pen SC Q4H PRN PRN BG>/= 180, SEE PROTOCOL Protocol PFSH Medical History Anxiety Alcohol use Thyroid disease History of IBS Asthma Shortness of breath on exertion History of pain when walking Cardiology follow-up encounter History of echocardiogram SBO (small bowel obstruction) Essential hypertension Hyperlipidemia Tachycardia Wears glasses Difficulty swallowing History of ulceration Non-smoker GERD (gastroesophageal reflux disease) Thyroid cancer Arthritis Home Medications ?Medication ?Instructions ?Recorded ?Last Taken ?Type amitriptyline 10 mg tablet 10 mg PO QHS 04/21/18 05/07/24 History cholecalciferol (vitamin D3) 1,250 50,000 unit PO QWEEK 18 05/08/24 04:00 History mcg (50,000 unit) capsule pravastatin 10 mg tablet 10 mg PO QHS 18 05/07/24 History multivitamin-ferrous 1 tab PO DAILY 11/19/21 05/06/24 History fumarate-folic acid 18 mg-400 mcg tablet (Centrum Women) thyroid (pork) 30 mg tablet 30 mg PO DAILY 11/19/21 05/08/24 04:00 History alprazolam 0.25 mg tablet 0.25 mg PO BID PRN PRN anxiety 12/17/23 Unknown History famotidine 40 mg tablet 40 mg PO BID #60 tabs 01/17/24 05/08/24 04:00 Rx metoclopramide HCl 5 mg tablet 5 mg PO TID #270 tabs 01/17/24 05/07/24 Rx diltiazem HCl 120 mg capsule,24 120 mg PO DAILY #90 caps 03/13/24 05/08/24 04:00 Rx hr,extended release hydrochlorothiazide 25 mg tablet 25 mg PO DAILY #90 tabs 03/13/24 05/08/24 04:00 Rx albuterol sulfate 90 mcg/actuation 2 puff inhalation Q6H PRN PRN 04/26/24 Unknown History aerosol inhaler shortness of breath or wheezing carvedilol 12.5 mg tablet 12.5 mg PO BID #180 TABLETS 05/01/24 05/08/24 04:00 Rx Allergy/AdvReac Type Severity Reaction Status Date / Time codeine Allergy Unknown Unknown Verified 04/26/24 13:24 Family History Sister Breast cancer Thyroid cancer Father Diabetes Heart disease Hypertension CVA (cerebral vascular accident) Mother Diabetes Surgical History Hx of esophagogastroduodenoscopy History of bilateral cataract extraction History of intestinal surgery Hx of colonoscopy H/O: hysterectomy Hx of appendectomy H/O partial thyroidectomy Hx of cholecystectomy Social History Smoking Status: Never smoker second hand exposure: No alcohol intake: never substance use type: does not use caffeine: Yes what type of physical activity do you participate in: none seatbelt use: always do you feel safe at home: Yes additional social history: - Kirill Review of Systems (Anesthesia) ROS Narrative System reviewed and no additional complaints, except as documented.
[2024-05-08 07:07] LABS: Bedside Glucose 119 mg/dL (74-106)
[2024-05-08] MEDS: Cefazolin 2 GM in 0.9% Normal Saline (100mL Bag) 100 ML IV (07:32)
--- NOTE | 2024-05-08 07:36 | KNEE_PTH ---
PATIENT: DAMIEN WELLER LOC: [facility] [place] U#:[id number] AGE/SX: 69/F ROOM: RE05/08/[address]: Dr. Dony Kaye MD : 1955 BED: DIS: 05/08/2024 SPEC #: [id number] RECD: 05/08/24 10:15 STATUS: AYSE REVi #: [id number] SNEHAL: 05/08/24 07:[address]: Dony Kaye DEPT: SURGICAL PATHOLOGY RECD BY: Ulices Baugh ENTERED: 05/08/24 11:14 SP TYPE: TOTAL KNEE OTHR DR: MD Dr. Ayde Oswald MD Tissues: Knee, NOS Procedures: Decalcification bone/plaque Surgery Specimen Level IV HEADER OPERATION: JERROD, left total knee replacement PRE-OP DIAGNOSIS: Left knee osteoarthritis TISSUE SUBMITTED: Debrided bone and tissue left knee MICROSCOPIC DIAGNOSIS Bone and soft tissue, left knee, total knee replacement/resection: Pieces of bone with degenerative osteoarthritic changes. NORMA: 05/11/2024 MICROSCOPIC DESCRIPTION Slides are reviewed. GROSS DESCRIPTION Received is one container designated bone and soft tissue left knee. The specimen consists of multiple fragments of vergara-yellow bone measuring in aggregate 9.0 x 9.0 x 3.0 cm. No soft tissue is identified. A number of bony fragments contain articular surfaces consistent with tibial plateau and femoral condyle and displaying prominent osteophyte formation, eburnation and bone erosion. Elevator Starter sections are submitted in one cassette after decalcification. NORMA/ 05/08/2024 TC:5 CPT: 98442, 13626
--- NOTE | 2024-05-08 07:51 | OP.PCM_ITS ---
Problems Associated Problem List Diagnoses (1) Left knee DJD: Operative Report Date of Procedure: 05/08/24 Preoperative diagnosis: Left knee severe post traumatic arthritis Post op diagnosis: Same Title of procedure : Left total knee replacement, press fit Surgeon: Dony Kaye MD Customer Service Coordinator: Hayley Levi PA-C Anesthesia: Spinal, adductor canal nerve block Anesthesiologist:Dr. oGff / RK EBL: 50 Fluid in: 800 Special medications: Ancef 2 g IV, tranexamic acid 1 g IV x 2, joint pain injection cocktail, ropivacaine, epinephrine, Duramorph, Toradol Indications for surgery: Patient is a [69]-year-old [female] with a history of knee posttraumatic arthritis appropriately treated and failed conservative measures and wished to proceed with total knee replacement. Patient was cleared for surgery by the medical doctor and has been evaluated by the anesthesia staff Findings: Intraoperative findings showed severe arthritis of the knee. Patient underwent knee replacement using [employer] triathlon press-fit total knee components. 1 custom cutting guide system utilized. Size [2] femur, size [3] tibia, , size [3-11 mm CS] X3 tibial polyethylene insert, knee was nicely balanced. Patella tracked well. Patient underwent standard wound closure in layers. Vicryl and strata fix sutures utilized, followed by alsye. assistant professor of dietetics, physician assistant manager/embalmer, was utilized throughout the entire procedure. They were vital in helping with patient positioning, holding of retractors, exposing the tissues adequately for safe completion of the procedure including cutting of the bone, helping assistant softball coach appropriate alignment and sizing of the components, implantation of the components, as well as wound closure, bandage application, and safe patient transfer. Without surgical asst, physician assistant manager/embalmer, surgical time would have been significantly increased, and surgical outcome could have been less optimal. Description of procedure: The patient was taken to the OR, transferred to the OR table. They were given a spinal anesthetic. Ancef was given IV preoperatively. Tranexamic acid was given IV preoperatively. Well-padded tourniquet was applied to the upper thigh of the operative leg. Nonoperative leg had a NANCY hose and SCD on throughout. Operative limb was prepped padded and draped in usual orthopedic sterile fashion for the procedure. We began by injecting the pain relieving solution in the anterior superior aspect of the knee region. The limb was exsanguinated, and the tourniquet was applied to 250 mmHg. Made a midline incision through skin, subcutaneous tissue, bringing down us on the extensor mechanism. Medial parapatellar arthrotomy was carried out. Straw-colored joint fluid was evacuated. We raised a sleeve of tissue off the upper medial tibia. Resected some of the infrapatellar fat pad. We remove degenerative medial and lateral meniscus. Removed bone spurs from about the joint. We removed tissue off the anterior aspect of the distal femur. Patella was translated laterally and/or everted as needed throughout the procedure. ACL was resected. PCL was preserved. Collateral ligaments were preserved. Physician placed the retractors and assistant manager/embalmer held retractors protecting above ligaments throughout the procedure. Cartilage removed from the distal femur and upper tibia at appropriate location for system. Custom cutting guide placed on distal femur for distal resection. Cut carried out. Next cutting block was applied to the front of the femur. 3? of external rotation . We sized off that block and decided on the appropriate size femur. 4-in-1 cutting block was applied to the distal femur and held in place with 2 pins. Customer Service Coordinator again held retractors to protect the soft tissues while surgeon performed anterior, posterior, and chamfer cuts. Bony fragments were removed. PCL retractor was placed and collateral ligament protectors placed by the surgeon, held by the assistance. Tibial premade custom alignment guide was utilized under standard technique going down the shaft of the tibia, to the base of the second metatarsal. Appropriate posterior slope was built in. Customer Service Coordinator help assistant softball coach alignment. Cutting block was held in place with 3 pins. Again checked the external alignment. Tibial cut carried out with a saw while the assistant manager/embalmer held retractors protecting the soft tissues about the anterior, medial, lateral, and posterior knee. Bone fragment removed. We then sized off the upper tibia with the help of the assistant manager/embalmer. We then checked flexion extension gaps finding them to be adequate and equal. Next the distal femoral trial was applied. Tibial tray was allowed to freefloat with a 11 mm insert. Knee was flexed and extended an external alignment guide is utilized. Tibial trial was pinned in place. Drill holes were placed into the distal femoral trial and it was removed. Punch was used on the upper tibial component and that was removed. The sclerotic bone was softened with a sharp pin. Bone spurs removed from the posterior medial and posterior lateral aspect of the femur while the assistant manager/embalmer lifted up on the distal femur and exposed each compartment. Patella was everted and protected throughout. No significant patella arthritis noted. Bleeding was controlled at the back of the knee with the bovey. Posterior knee soft tissues were carefully injected with pain relieving solution. Tourniquet deflated at 34 minutes. Components were checked and open. Knee was thoroughly irrigated. The bony surfaces cleaned and dried. Tibia, femur, press-fit into position. Customer Service Coordinator held retractors exposing the bony surfaces of the tibia and femur which were hammered in position. A trial insert applied to the tibia. The final insert was placed on the tibial tray seated down fully. We thoroughly irrigated and debrided the knee. Bleeding controlled with the Bovie. Knee was again thoroughly irrigated. Patella noted to track nicely. We repaired the arthrotomy with a combination of #1 Vicryl and #2 strata fix. We did a mid layer of 1 Vicryl and #1 strata fix running. We then did inverted 2-0 vicryl . We then alyse. Mepilex dressing applied. NANCY hose and SCDs applied. Patient was awoken from their anesthetic, transferred back to their own bed and recovery room in satisfactory condition. Second dose of IV Tranexamic acid was given while closing wound. Patient planned outpatient surgery, appropriate IV antibiotic to be utilized as well as medication for DVT prevention. Hopeful discharge to home today. Physical therapy will be consulted. This note was generated with [employer] software. It may contain incorrect words, spelling, and punctuation that were not noted in checking the note before signing.
[2024-05-08] MEDS: TXA 1000mg in NS100 100ml (IVPB at Incision) 660 MG IV (07:52)
[2024-05-08] MEDS: JPS (Morphine 10mg/ml) OPERA.SITE (08:10)
[2024-05-08] MEDS: dexAMETHasone 10 MG/ML Vial IV (08:12)
[2024-05-08] MEDS: TXA 1000mg in NS100 100ml (IVPB at Closure) 660 MG IV (09:01)
--- NOTE | 2024-05-08 09:42 | PCM.POST.ANE ---
Anesthesia: Postop Eval I Current Vital Signs Temperature: 97 F Pulse Rate: 71 Blood Pressure: 89/68 Respiratory Rate: 16 Pulse Ox: 97 Oxygen Delivery Method: Room Air Assessment Airway patent: Yes Spontaneous unlabored respirations: Yes Mental status: Awake and Calm nausea: No Vomiting: No Anesthesia Complication: No Fluid Hydration Crystalloid volume administer (ml): 800 Total IV fluid infused: 800 Progress Note Anesthesia document: Postop Eval 1 completed: Yes
--- NOTE | 2024-05-08 09:55 | RAD_ITS ---
INDICATION: post op eval -- in PACU EXAMINATION/TECHNIQUE: X-RAY - LEFT XR Knee 1 or 2 Views 2 VIEWS COMPARISON: No relevant prior comparison study available FINDINGS: There is a total left knee arthroplasty. The femoral component articulates appropriately with the tibial and patellar components. No periprosthetic lucency or fracture. Postoperative soft tissue and joint gas. Anterior skin alyse. RAD/Knee 1 or 2 Views IMPRESSION: Total left knee arthroplasty in typical positioning and alignment. Electronically Signed: Shelton Ho MD at 6:16 EDT ,
--- NOTE | 2024-05-08 10:48 | PCM.POSTANE2 ---
Anesthesia Postop Eval I Sum Postop Eval Completion status Anesthesia document: Postop Eval 1 completed: Yes Anesthesia Postop Eval I Summary Anesthesia Postop Eval I Summary: Anesthesia Postop Eval I: Assessment Summary Airway patent Yes 05/08/24 09:45 Spontaneous unlabored Yes 05/08/24 09:45 respirations Mental status Awake,Calm 05/08/24 09:45 nausea No 05/08/24 09:45 Vomiting No 05/08/24 09:45 Anesthesia Postop Eval I: Fluid Summary Crystalloid volume administer 800 05/08/24 09:45 (ml) Colloids volume administered ( ml) Blood Product volume administered (ml) Total IV fluid infused 800 05/08/24 09:45 Anesthesia Postop Eval I: Summary Notes Anesthesia Complication No 05/08/24 09:45 Anesthesia Complication Comment: Post-operative progress note Anesthesia: Postop Eval II Evaluation Mental status: Asleep (Arousable) Pain Level: 0 nausea: No Vomiting: No Progress Note Post-operative progress note: Adductor canal block completed with no complications. Complications Anesthesia Complication: No
[2024-05-08] MEDS: Cefazolin 1 GM/50 ML BAG IV (11:48)
[2024-05-08] MEDS: Ondansetron 4 MG/2 ML Vial IV (14:13)
[2024-05-08] MEDS: oxyCODONE 5 MG Tablet PO (14:13)
== END 2024-05-08 18:40 | disposition home or self-care (01) ==
LOC: SDC 05:20 → AC 05:23
PROVIDERS: Anesthesiology; PCP Internal Medicine; Referring Provider Orthopaedic Surgery; Visit Provider Orthopaedic Surgery
PROC: (CPT 27447; principal; 2024-05-08 07:05)
DX: M17.12 Unilateral primary osteoarthritis, left knee (principal); J45.909 Unspecified asthma, uncomplicated; I10 Essential (primary) hypertension; E07.9 Disorder of thyroid, unspecified; K21.9 Gastro-esophageal reflux disease without esophagitis; Z79.51 Long term (current) use of inhaled steroids; Z79.899 Other long term (current) drug therapy
CPT/HCPCS: 27447; 64447; 01402; 36415; 73560; 82962; 83735; 84443; 87081; 88305; 88311; 97161; 97162; C1776; J7120; J2405; J3475

== ENCOUNTER 2024-05-15 16:29 | Inpatient (IN) | payer OTHER, MEDICARE, SELFPAY ==
[2024-05-15 16:29] VITALS: BP 137/71; PULSE 95; RESP 16; TEMP 35.9; O2SAT 96
[2024-05-15 16:32] VITALS: BMI 31.6
[2024-05-15 18:29] VITALS: BP 152/76; PULSE 106; RESP 18; O2SAT 99
--- NOTE | 2024-05-15 18:42 | CT_ITS ---
We are attempting to reach an attending provider to discuss findings. An addendum with communication details will be sent when the communication is complete. INDICATION: abdominal pain EXAMINATION: CT ABDOMEN AND PELVIS with CONTRAST - CT Abdomen And Pelvis W/ Contrast Injection TECHNIQUE: Multiple axial images were obtained of the abdomen and pelvis following administration of IV contrast. Planar reconstructions obtained. A radiation dose optimization technique was used for this scan. RADIATION DOSAGE (If Supplied By Facility): CTDIvol = ( 13.57 ) mGy, DLP = ( 832.48 ) mGycm IV Contrast dosage and agent: 100 mL Isovue-370 Oral contrast: None. COMPARISON: No pertinent previous studies for comparison.. FINDINGS: LOWER THORAX: Lungs are clear. Cardiac contour is normal, no pericardial effusion. No coronary vascular calcifications noted. HEPATOBILIARY: Liver: Liver has normal size and configuration. There is focal area of abnormal contrast enhancement within the RIGHT hepatic lobe measuring 1.1 x 1.3 cm (series 2: Image 31) consistent with small hemangioma. There is a small subcapsular cyst along the inferior aspect of the RIGHT hepatic lobe measuring approximately 6 mm (series 2: Image 30). Remaining hepatic parenchyma has normal appearance. No masses or ductal dilatation.. Gallbladder: Surgically absent. No ductal dilatation. Pancreas: Pancreas is normal size configuration and density. No mass is noted. Spleen: The spleen is homogeneous and normal in size. . BOWEL: Stomach: The stomach is normal in size configuration, no evidence of focal masses, abnormal calcifications. There is a small hiatal hernia. Bowel: Large and small bowel loops have normal configuration. There is a mild proximal small small bowel distention and the distal small bowel is decompressed. Early or partial SBO are considerations. No pneumatosis or free air. Appendix: The appendix is not positively identified.: GENITOURINARY: Adrenals: Both adrenal glands are normal in size. Kidneys: Kidneys have normal configuration with the exception of a large benign cyst in the RIGHT kidney measuring 7.7 x 6.6 cm. No solid masses, calcifications or obstructive uropathy.. Small LEFT renal cyst also noted with maximal dimension of 8 mm. Bladder: Normal Pelvic organs: Postoperative changes of prior hysterectomy. No pelvic masses. RETROPERITONEUM: Normal appearance of the aorta. No aneurysmal dilatation. Multiple coarsely calcified lymph nodes present in the iliac chain bilaterally (series 2: Image 87, and a large calcified lymph node in the LEFT periaortic region (series 2: Image 60). LYMPH NODES: Calcified lymph nodes in the retroperitoneum and along the pelvic sidewalls as detailed above. PERITONEAL CAVITY: No ascites noted ANTERIOR ABDOMINAL WALL: Normal, no hernia identified. BONES AND SOFT TISSUES: Mild lumbar spondylosis particularly at T12. No acute bony changes noted. No acutely acquired canal stenosis. OTHER: None CT/Abdomen/Pelvis W IV Cont ONLY IMPRESSION: 1. Mild fluid and gas distention of proximal and mid bowel segments, distal small bowel is decompressed, findings consistent with early developing versus partial SBO. 2. No evidence diverticulitis. 3. The appendix is not positively identified. 4. Status post cholecystectomy. No ductal dilatation. 5. Benign Bosniak type I RIGHT and LEFT renal cysts. No follow-up necessary. No obstructive uropathy. 6. Multiple iliac and LEFT periaortic calcified lymph nodes consistent with sequelae of a prior granulomatous disease. 7. Small RIGHT hepatic hemangioma and small RIGHT hepatic cyst. 8. Small hiatal hernia Bosniak class I and II cysts are considered benign, and require no additional imaging follow-up based on consensus guidelines (JACR 2010; 7:753-773). Electronically Signed: Garry Hill MD at 20:33 EDT ,
--- NOTE | 2024-05-15 18:46 | EDS_ITS ---
HPI HPI - GI History of Present Illness Chief Complaint: Abd Pain Narrative Narrative: 69-year-old female with history of small bowel obstruction, gastroparesis, IBS presenting with abdominal pain. She describes it is mostly epigastric and sharp. Patient states she had surgery about a week ago on her left knee and took pain medicine which she thinks made her constipation worse. She also states that the anesthesia she believes slowed her bowels. She stopped taking the medication. She called the orthopedic surgeon they recommended stool softeners and she has been taking Senokot, MiraLAX and she has been having bowel movements but now she is having nausea and vomiting and epigastric pain which is different. No fevers. No blood in her stool. PFSH [facility] Medical History Anxiety Alcohol use Thyroid disease History of IBS Asthma Shortness of breath on exertion History of pain when walking Cardiology follow-up encounter History of echocardiogram SBO (small bowel obstruction) Essential hypertension Hyperlipidemia Tachycardia Wears glasses Difficulty swallowing History of ulceration Non-smoker GERD (gastroesophageal reflux disease) Thyroid cancer Arthritis Home Medications ?Medication ?Instructions ?Recorded ?Last Taken ?Type amitriptyline 10 mg tablet 10 mg PO QHS 04/21/18 05/07/24 History pravastatin 10 mg tablet 10 mg PO QHS 04/21/18 05/07/24 History multivitamin-ferrous 1 tab PO DAILY 11/19/21 05/06/24 History fumarate-folic acid 18 mg-400 mcg tablet (Centrum Women) thyroid (pork) 30 mg tablet 30 mg PO DAILY 11/19/21 05/08/24 04:00 History alprazolam 0.25 mg tablet 0.25 mg PO BID PRN PRN anxiety 12/17/23 Unknown History famotidine 40 mg tablet 40 mg PO BID #60 tabs 01/17/24 05/08/24 04:00 Rx metoclopramide HCl 5 mg tablet 5 mg PO TID #270 tabs 01/17/24 05/07/24 Rx diltiazem HCl 120 mg capsule,24 120 mg PO DAILY #90 caps 03/13/24 05/08/24 04:00 Rx hr,extended release hydrochlorothiazide 25 mg tablet 25 mg PO DAILY #90 tabs 03/13/24 05/08/24 04:00 Rx carvedilol 12.5 mg tablet 12.5 mg PO BID #180 TABLETS 05/01/24 05/08/24 04:00 Rx acetaminophen 500 mg capsule 1,000 mg PO Q8H PRN PRN pain 05/15/24 Unknown History aspirin 81 mg tablet,delayed 81 mg PO BID 05/15/24 Unknown History release (Adult Aspirin Regimen) celecoxib 200 mg capsule 200 mg PO DAILY 05/15/24 Unknown History cholecalciferol (vitamin D3) 25 5,000 unit PO MO 05/15/24 Unknown History mcg (1,000 unit) capsule (Vitamin D3) ondansetron 4 mg disintegrating 4 mg PO Q6H PRN PRN nausea 05/15/24 Unknown History tablet pancreatin 500 mg tablet mg PO 05/15/24 Unknown History Allergy/AdvReac Type Severity Reaction Status Date / Time codeine Allergy Unknown Unknown Verified 05/15/24 16:32 Family History Sister Breast cancer Thyroid cancer Father Diabetes Heart disease Hypertension CVA (cerebral vascular accident) Mother Diabetes Surgical History Status post total left knee replacement Hx of esophagogastroduodenoscopy History of bilateral cataract extraction History of intestinal surgery Hx of colonoscopy H/O: hysterectomy Hx of appendectomy H/O partial thyroidectomy Hx of cholecystectomy Social History Smoking Status: Never smoker second hand exposure: No alcohol intake: never substance use type: does not use caffeine: Yes what type of physical activity do you participate in: none seatbelt use: always do you feel safe at home: Yes additional social history: - Kirill OLESYA ROS ED Constitutional Constitutional ED: Denies chills, fever(s) or sweats Eyes Eyes: Denies blurry vision or change in vision ENT ENT ED: Denies ear pain or sore throat Cardiovascular Cardiovascular: Denies chest pain, palpitations or racing heartbeat Respiratory/Chest Respiratory/Chest: Denies cough, dyspnea or sputum Gastrointestinal Gastrointestinal: Reports abdominal pain, constipation, nausea and vomiting; Denies diarrhea Genitourinary Genitourinary ED: Denies dysuria, hematuria or urinary frequency Musculoskeletal Musculoskeletal: Denies arthralgias, myalgias or neck pain Integumentary Denies abscess, Abrasions or rash Neurologic Neurologic: Denies headache(s), paresthesias or weakness Psychiatric Psychiatric: Denies anxiety, depression, suicidal ideation or suicidal thoughts Endocrine Endocrinology: Denies polydipsia or polyuria EXAM Physical Exam Const Vital Signs: 05/15/24 16:29 05/15/24 18:29 05/15/24 20:00 Temperature 96.6 F L Temperature Source Temporal Pulse Rate 95 106 H 101 H Respiratory Rate 16 18 17 Blood Pressure 137/71 H 152/76 H 148/70 H Blood Pressure Mean 93 101 96 Pulse Ox 96 99 98 Oxygen Delivery Method Room Air Room Air Room Air Positive well nourished General Appearance ED: NAD; Negative for pallor HEENT Reports moist mucous membranes normocephalic and atraumatic Eyes PERRL Resp normal respiratory effort Effort and Inspection: Negative for respiratory distress Cardio regular rate and regular rhythm GI Palpation: tender epigastric Neuro CN's II-XII intact bilaterally Sensorium / Orientation: alert Psych mental status grossly normal Skin no wounds General Skin Exam: Negative for jaundice or pallor MDM MDM MDM Narrative Medical decision making narrative: 69-year-old female presenting with abdominal pain, nausea, vomiting, diarrhea, constipation. Patient presenting with right flank pain. Differential includes colitis, diverticulitis, gastritis, pancreatitis, acute cholecystitis, constipation, UTI, pyelonephritis, calculi, ureteral calculi, obstruction, malignancy, dehydration, electrolyte abnormalities, gastroparesis. CBC will be obtained to assess white blood cell count, hemoglobin, platelets. CMP to assess renal function, electrolytes, liver function, glucose. Lipase to assess for pancreatitis. Urinalysis to assess for UTI. Patient was given Zofran, IV Pepcid for her epigastric pain and nausea. She was given Toradol for her knee. CBC shows leukocytosis of 15.2. Hemoglobin 11.8. Creatinine slightly elevated at 1.09 however this is near patient's baseline. AST is 75, ALT 130, alk phosphatase 207. Bilirubin is normal this is nonspecific. Lipase is negative. Urinalysis negative for infection. On reevaluation she was pain and nausea free. Went over the results of her CT which was concerning for either partial small bowel obstruction or early small bowel obstruction. I had discussed the case with Dr. Amos who is on-call and he recommended admission and he would see her in the hospital. He did not believe she needed an NG tube. Patient is amenable to staying. Discussed with hospitalist for admission. Impression: 1. Partial small bowel obstruction 2. Nausea/vomiting 3. Leukocytosis Lab Data Attestation: I reviewed the patient's lab results. Labs: Laboratory Results - last 24 hr 05/15/24 05/15/24 18:55 19:00 WBC 15.2 H RBC 4.06 L Hgb 11.8 L Hct 35.6 L MCV 87.7 MCH 29.1 MCHC 33.1 RDW Std Deviation 42.7 RDW Coeff of Juan 13.3 Plt Count 397 MPV 8.6 Immature Gran % (Auto) 0.700 Neut % (Auto) 61.1 Lymph % (Auto) 26.3 [place] % (Auto) 10.7 H Eos % (Auto) 1.0 Baso % (Auto) 0.2 Absolute Neuts (auto) 9.3 H Absolute Lymphs (auto) 3.99 Nucleated RBC % 0 Differential Comment SEE COMMENT Platelet Estimate ADEQUATE RBC Morphology NORM C+C Anisocytosis RARE Sodium 134 L Potassium 3.0 L Chloride 97 L Carbon Dioxide 27.0 Anion Gap 10 BUN 12 Creatinine 1.09 H Estim Creat Clear Calc 42.37 Est GFR (MDRD) Af Amer 64 Est GFR (MDRD) Non-Af 53 L BUN/Creatinine Ratio 11.0 Glucose 102 Calcium 9.0 Total Bilirubin 0.40 Direct Bilirubin 0.22 AST 75 H ALT 130 H Alkaline Phosphatase 207 H Total Protein 7.3 Albumin 2.9 L Globulin 4.4 H Albumin/Globulin Ratio 0.7 L Lipase 36 Urine Color Yellow Urine Clarity Clear Urine pH 7.0 Ur Specific [place] 1.005 Urine Protein Negative Urine Glucose (UA) Normal Urine Ketones Negative Urine Occult Blood 50 H Urine Nitrite Negative Urine Bilirubin Negative Urine Urobilinogen Normal Ur Leukocyte Esterase Negative Urine RBC 0-5 SEEN Urine WBC 0 SEEN Ur Squamous Epith Cells 0-5 SEEN Urine Bacteria 0 SEEN Urine Mucus 0 SEEN Radiography Diagnostic Testing: Clinical Impression(s) from Imaging Studies Abdomen/Pelvis CT 05/15/24 18:42 IMPRESSION: 1. Mild fluid and gas distention of proximal and mid bowel segments, distal small bowel is decompressed, findings consistent with early developing versus partial SBO. 2. No evidence diverticulitis. 3. The appendix is not positively identified. 4. Status post cholecystectomy. No ductal dilatation. 5. Benign Bosniak type I RIGHT and LEFT renal cysts. No follow-up necessary. No obstructive uropathy. 6. Multiple iliac and LEFT periaortic calcified lymph nodes consistent with sequelae of a prior granulomatous disease. 7. Small RIGHT hepatic hemangioma and small RIGHT hepatic cyst. 8. Small hiatal hernia Bosniak class I and II cysts are considered benign, and require no additional imaging follow-up based on consensus guidelines (JACR 2010; 7:753-773). Electronically Signed: Garry Hill MD at 20:33 EDT , ADDENDUM: 05/15/242050 IMPRESSION: 1. Mild fluid and gas distention of proximal and mid bowel segments, distal small bowel is decompressed, findings consistent with early developing versus partial SBO. 2. No evidence diverticulitis. 3. The appendix is not positively identified. 4. Status post cholecystectomy. No ductal dilatation. 5. Benign Bosniak type I RIGHT and LEFT renal cysts. No follow-up necessary. No obstructive uropathy. 6. Multiple iliac and LEFT periaortic calcified lymph nodes consistent with sequelae of a prior granulomatous disease. 7. Small RIGHT hepatic hemangioma and small RIGHT hepatic cyst. 8. Small hiatal hernia Bosniak class I and II cysts are considered benign, and require no additional imaging follow-up based on consensus guidelines (JACR 2010; 7:[id number]). N.B. : The above Results were Read Back by Garry Hill MD to Jaquan Gonzalez DO, and understanding confirmed on 05/15/2024 20:44:33 (ET). Electronically Signed: Garry Hill MD at 20:33 EDT , Discharge Plan Triage Chief Complaint: Abd Pain ED Provider: Jaquan Gonzalez Dx/Rx/DC Orders Prescriptions: No Action pravastatin 10 mg tablet 10 mg PO QHS amitriptyline 10 mg tablet 10 mg PO QHS thyroid (pork) 30 mg tablet 30 mg PO DAILY Centrum Women 18-400 mg-mcg tablet 1 tab PO DAILY alprazolam 0.25 mg tablet 0.25 mg PO BID PRN PRN (Reason: anxiety) metoclopramide HCl 5 mg tablet 5 mg PO TID Qty: 270 3RF Rx Instructions: administer 30 minutes before meals famotidine 40 mg tablet 40 mg PO BID Qty: 60 11RF celecoxib 200 mg capsule 200 mg PO DAILY Patient Comments: for 14d starting 05/09 ondansetron 4 mg tablet,disintegrating 4 mg PO Q6H PRN PRN (Reason: nausea) aspirin [Adult Aspirin Regimen] 81 mg tablet,delayed release (DR/EC) 81 mg PO BID acetaminophen 500 mg capsule 1,000 mg PO Q8H PRN PRN (Reason: pain) pancreatin 500 mg tablet PO Patient Comments: takes pancreatin 2000 from [employer]. not available on our med list cholecalciferol (vitamin D3) [Vitamin D3] 25 mcg (1,000 unit) capsule 5,000 unit PO MO diltiazem HCl 120 mg capsule,extended release 24 hr 120 mg PO DAILY Qty: 90 3RF hydrochlorothiazide 25 mg tablet 25 mg PO DAILY Qty: 90 3RF carvedilol 12.5 mg tablet 12.5 mg PO BID Qty: 180 3RF Primary Care Provider: Ayde Peterson Referrals: Ayde Peterson MD [Primary Care Provider] - Print Language: [place]
[2024-05-15 19:11] LABS: Bacteria 0 SEEN /hpf (None Seen); Mucous, Urine 0 SEEN /hpf (<or=2+); White Blood Cells 0 SEEN /hpf (0-5)
[2024-05-15 19:12] LABS: Absolute Lymphocyte Count 3.99 X10^3/uL (0.83-4.51); Absolute Neutrophil Count 9.3 X10^3/uL (2.0-7.7); Basophil# 0.03 X10^3/uL; Basophil% 0.2 % (0-1); Eosinophil# 0.15 X10^3/uL; Hematocrit 35.6 % (37-47); Hemoglobin 11.8 g/dL (12.0-15.0); Lymphocyte # 3.99 X10^3/ul (0.83-4.51); Lymphocyte % 26.3 % (19-41); Mean Corp Hgb Conc 33.1 g/dL (32-36); Mean Corpuscular Hgb 29.1 pg (27.0-32.0); Mean Corpuscular Volume 87.7 fL (81-99); Mean Platelet Vol. 8.6 fl (6.2-12.0); Monocyte# 1.62 X10^3/uL; Monocyte% 10.7 % (0-10); NRBC Flagged by Analyzer 0 % (0-5); Neutrophil # 9.29 X10^3/uL (2.7-7.7); Neutrophil % 61.1 % (47-70); POSITIVE DIFFERENTIAL YES; Platelet Count 397 K/mm3 (150-450); RBC Distribution Width CV 13.3 % (11.6-14.6); RBC Distribution Width SD 42.7 fl (35.1-43.9); Red Blood Count 4.06 M/mm3 (4.2-5.4); White Blood Count 15.2 K/mm3 (4.4-11.0)
[2024-05-15 19:17] LABS: Color, Urine Yellow (Yellow); Glucose, Dipstick Normal (Normal); Ketone-Dipstick Negative (Negative); Leukocyte Esterase-Dipstick Negative /ul (Negative); Nitrite-Dipstick Negative (Negative); Occult Blood-Urine 50 /ul (Negative); Protein-Dipstick Negative (Negative); Specific Gravity, Urine 1.005 (1.002-1.030); Urine Bilirubin Dipstick Negative (Negative); Urine Clarity Clear (Clear); Urine Urobilinogen Normal (Normal)
[2024-05-15] MEDS: Famotidine 200 MG/20 ML MDV 20 MG in 0.9% Normal Saline (Pres. free 8 ML 300 MG IV (19:28)
[2024-05-15] MEDS: Ketorolac 15 MG/ML Vial IV (19:28)
[2024-05-15] MEDS: Ondansetron 4 MG/2 ML Vial IV (19:28)
[2024-05-15] MEDS: 0.9% Normal Saline (1000mL) 1,000 ML 999 ML IV (19:28)
[2024-05-15 19:30] LABS: ALB/GLOB Ratio 0.7 RATIO (0.9-2.4); AST(SGOT) 75 U/L (15-37); Alanine Aminotransfer ALT/SGPT 130 U/L (13-56); Albumin, Serum 2.9 g/dL (3.2-5.0); Alkaline Phosphatase 207 U/L (45-117); Anion Gap 10 (5-15); BUN 12 mg/dL (7-18); Bilirubin, Direct 0.22 mg/dL (0.00-0.30); Chloride 97 mmol/L (98-107); Creatinine, Serum 1.09 mg/dL (0.55-1.02); EST Glomerular Filtration Rate 53 mL/min (>60); Est Glom Filt Rate - Afr Amer 64 mL/min (>60); Estimated Creatinine Clearance 42.37 ml/min; Globulin 4.4 g/dL (2.2-4.2); Glucose 102 mg/dL (74-106); Protein, Total 7.3 g/dL (6.4-8.2); Sodium Level 134 mmol/L (136-145)
[2024-05-15 19:32] LABS: Red Blood Cells-Urine 0-5 SEEN /hpf (0-5); Squamous Epithelial Cells - UA 0-5 SEEN /hpf (5-10)
[2024-05-15 19:48] LABS: Differential Indicated SCAN CRITERIA MET
[2024-05-15 19:55] LABS: Anisocytosis RARE; Platelet Estimate ADEQUATE (ADEQ); Red Cell Morphology NORM C+C NORMAL (NORM C&C)
[2024-05-15 20:00] VITALS: BP 148/70; PULSE 101; RESP 17; O2SAT 98
[2024-05-15 20:07] LABS: Lipase 36 U/L (13-75)
--- NOTE | 2024-05-15 20:54 | HP.PCM.HOS_ITS ---
[facility] - General General Date of Admission: 05/15/24 Date of Service: 05/15/24 Chief Complaint: Abdominal Pain, Nausea and Vomiting. [facility] Narrative DAMIEN WELLER, is a 69 F with a past medical history of essential hypertension, hyperlipidemia, hypothyroidism; with history of thyroid cancer and subsequent partial/Right thyroidectomy (2006), obesity; with BMI of 31.6 this admission, gastroparesis; on Reglan 5mg TID, IBS; of alternating constipation + diarrhea-type with history of colonoscopy, GERD; with history of EGD revealing PUD (2020), history of asthma, depression with anxiety, history of cholecystectomy (2003), history of hysterectomy (1979), history of appendectomy (1978), history of small intestinal surgery (1977), history of SBO; with previous lysis of adhesions and recent history of Left TKR ~[address] Dony Kaye of orthopedic surgery on May 08, 2024; with patient written prescription for codeine prn for pain control who presents to [facility] ER complaining of abdominal pain, nausea and vomiting. Ms. Weller reports her symptoms began approximately one week prior to admission with the gradual-onset of progressively worsening constipation after she began to use her codeine - so she only took one dose. She then called her orthopedic surgeon and was prescribed stool softeners and MiraLAX with patient stating she had a normal BM yesterday and then earlier today - but she has noted that the stools are black - which she attributed to her numerous laxatives. Then about an hour prior to arrival she developed severe abdominal pain, sharp, cramping, burning and focused in the epigastrium with radiation up in to her esophagus similar to severe GERD and with nothing seeming to make the pain better or worse and she states she has not vomited for the past 2 days. She denies blood in stools, blood in vomitus, fever or chills. In the ER her CT scan of the abdomen and pelvis revealed evidence of early SBO; with mild fluid and gas distention of proximal and mid bowel segments, distal small bowel is decompressed with no evidence of diverticulitis, with evidence of previous cholecystectomy with no ductal dilatation and a benign Bosniak type I right and left renal cyst with no follow-up recommended in addition to a right hepatic meningioma and small right hepatic cyst with a small hiatal hernia. She was also noted to have laboratory evidence of hypokalemia of 3 mmol/L present on admission and leukocytosis of 15.2 K present on admission likely due to acute stress response. The general surgeon on-call requested the ER physician, hospitalist for admission with this patient not suspected to need surgery which was done. She was then admitted to the general medical floor for ongoing care for stay that is expected to extend beyond 2 midnights. [facility] Medical History Anxiety Alcohol use Thyroid disease History of IBS Asthma Shortness of breath on exertion History of pain when walking Cardiology follow-up encounter History of echocardiogram SBO (small bowel obstruction) Essential hypertension Hyperlipidemia Tachycardia Wears glasses Difficulty swallowing History of ulceration Non-smoker GERD (gastroesophageal reflux disease) Thyroid cancer Arthritis Home Medications ?Medication ?Instructions ?Recorded ?Last Taken ?Type amitriptyline 10 mg tablet 10 mg PO QHS 04/21/18 05/07/24 History pravastatin 10 mg tablet 10 mg PO QHS 04/21/18 05/07/24 History multivitamin-ferrous 1 tab PO DAILY 11/19/21 05/06/24 History fumarate-folic acid 18 mg-400 mcg tablet (Centrum Women) thyroid (pork) 30 mg tablet 30 mg PO DAILY 11/19/21 05/08/24 04:00 History alprazolam 0.25 mg tablet 0.25 mg PO BID PRN PRN anxiety 12/17/23 Unknown History famotidine 40 mg tablet 40 mg PO BID #60 tabs 01/17/24 05/08/24 04:00 Rx metoclopramide HCl 5 mg tablet 5 mg PO TID #270 tabs 01/17/24 05/07/24 Rx diltiazem HCl 120 mg capsule,24 120 mg PO DAILY #90 caps 03/13/24 05/08/24 04:00 Rx hr,extended release hydrochlorothiazide 25 mg tablet 25 mg PO DAILY #90 tabs 03/13/24 05/08/24 04:00 Rx carvedilol 12.5 mg tablet 12.5 mg PO BID #180 TABLETS 05/01/24 05/08/24 04:00 Rx acetaminophen 500 mg capsule 1,000 mg PO Q8H PRN PRN pain 05/15/24 Unknown History aspirin 81 mg tablet,delayed 81 mg PO BID 05/15/24 Unknown History release (Adult Aspirin Regimen) celecoxib 200 mg capsule 200 mg PO DAILY 05/15/24 Unknown History cholecalciferol (vitamin D3) 25 5,000 unit PO MO 05/15/24 Unknown History mcg (1,000 unit) capsule (Vitamin D3) ondansetron 4 mg disintegrating 4 mg PO Q6H PRN PRN nausea 05/15/24 Unknown History tablet pancreatin 500 mg tablet mg PO 05/15/24 Unknown History Allergy/AdvReac Type Severity Reaction Status Date / Time codeine Allergy Unknown Unknown Verified 05/15/24 16:32 Family History Sister Breast cancer Thyroid cancer Father Diabetes Heart disease Hypertension CVA (cerebral vascular accident) Mother Diabetes Surgical History Status post total left knee replacement Hx of esophagogastroduodenoscopy History of bilateral cataract extraction History of intestinal surgery Hx of colonoscopy H/O: hysterectomy Hx of appendectomy H/O partial thyroidectomy Hx of cholecystectomy Social History Smoking Status: Never smoker second hand exposure: No alcohol intake: never substance use type: does not use caffeine: Yes what type of physical activity do you participate in: none seatbelt use: always do you feel safe at home: Yes additional social history: - Kirill ROS ROS Narrative Review of systems: General: Patient denies fever or chills. HENT: Denies headache, denies stuffy nose, denies sore throat EYES: Denies changes in vision or discharge from eyes. Resp: Denies cough, denies shortness of breath Cardiac: Denies chest pain, palpitations or heart racing. GI: Patient admits to abdominal pain with gradually worsening constipation since starting codeine postoperatively after total knee replacement approximately week ago with nausea and bilious emesis as per HPI. : Denies changes in urination Extremity: Denies swelling Musculoskeletal: Patient admits to arthralgias in the Left knee but denies myalgias. Neuro: Patient denies headache, paresthesias or focal neurologic deficits. Heme: Denies any bleeding or bruising Skin: Denies rashes Psychiatric: No complaints voiced related uncontrolled depression or anxiety Endocrine: No polyuria, polydipsia or polyphagia. The rest of the 14 point ROS was negative except for positives in HPI. Vital Signs Vital Signs Vital Signs: 05/15/24 16:29 05/15/24 18:29 05/15/24 20:00 Temperature 96.6 F L Temperature Source Temporal Pulse Rate 95 106 H 101 H Respiratory Rate 16 18 17 Blood Pressure 137/71 H 152/76 H 148/70 H Blood Pressure Mean 93 101 96 Pulse Ox 96 99 98 Oxygen Delivery Method Room Air Room Air Room Air Weight Weight: 162 lb 0.636 oz Body Mass Index (BMI) 31.6 Physical Exam Const alert, oriented x3, no apparent distress, average body habitus and healthy appearing General Appearance: cooperative HEENT normocephalic, head/scalp atraumatic, hearing grossly normal bilaterally and moist oral mucous membranes Eyes PERRL and EOMs intact bilaterally Neck no lymphadenopathy and supple Resp normal respiratory effort, no retractions, no use of accessory muscles and clear to auscultation bilaterally Cardio regular rate and regular rhythm GI soft to palpation and non-distended GI Narrative: Patient is tender to palpation over the epigastrium. Extremity Extremity Narrative: Evidence of recent Left TKR with out signs of infection or vascular compromise. Skin Skin Narrative: Patient has no evidence of jaundice, rash or abscess. Neuro oriented x3, CN's II-XII intact bilaterally, moves all extremities and no focal motor deficits Sensorium / Orientation: awake, alert, oriented to person, oriented to place and oriented to time Speech: speech normal Psych affect normal Results Medical Records Data Attestation: I reviewed the patient's medical records Lab / Micro Data Attestation: I reviewed the patient's lab results. 05/15/24 19:00 05/15/24 19:00 Labs: Laboratory Results - last 24 hr 05/15/24 18:55: Urine Color Yellow, Urine Clarity Clear, Urine pH 7.0, Ur Specific [place] 1.005, Urine Protein Negative, Urine Glucose (UA) Normal, Urine Ketones Negative, Urine Occult Blood 50 H, Urine Nitrite Negative, Urine Bilirubin Negative, Urine Urobilinogen Normal, Ur Leukocyte Esterase Negative, Urine RBC 0-5 SEEN, Urine WBC 0 SEEN, Ur Squamous Epith Cells 0-5 SEEN, Urine Bacteria 0 SEEN, Urine Mucus 0 SEEN 05/15/24 19:00: WBC 15.2 H, RBC 4.06 L, Hgb 11.8 L, Hct 35.6 L, MCV 87.7, MCH 29.1, MCHC 33.1, RDW Std Deviation 42.7, RDW Coeff of Juan 13.3, Plt Count 397, MPV 8.6, Immature Gran % (Auto) 0.700, Neut % (Auto) 61.1, Lymph % (Auto) 26.3, Evans % (Auto) 10.7 H, Eos % (Auto) 1.0, Baso % (Auto) 0.2, Absolute Neuts (auto) 9.3 H, Absolute Lymphs (auto) 3.99, Nucleated RBC % 0, Differential Comment SEE COMMENT, Platelet Estimate ADEQUATE, RBC Morphology NORM C+C, Anisocytosis RARE, Sodium 134 L, Potassium 3.0 L, Chloride 97 L, Carbon Dioxide 27.0, Anion Gap 10, BUN 12, Creatinine 1.09 H, Estim Creat Clear Calc 42.37, Est GFR (MDRD) Af Amer 64, Est GFR (MDRD) Non-Af 53 L, BUN/Creatinine Ratio 11.0, Glucose 102, Calcium 9.0, Total Bilirubin 0.40, Direct Bilirubin 0.22, AST 75 H, ALT 130 H, Alkaline Phosphatase 207 H, Total Protein 7.3, Albumin 2.9 L, Globulin 4.4 H, A lbumin/Globulin Ratio 0.7 L, Lipase 36 Imaging Radiology Impression Abdomen/Pelvis CT 05/15/24 18:42 IMPRESSION: 1. Mild fluid and gas distention of proximal and mid bowel segments, distal small bowel is decompressed, findings consistent with early developing versus partial SBO. 2. No evidence diverticulitis. 3. The appendix is not positively identified. 4. Status post cholecystectomy. No ductal dilatation. 5. Benign Bosniak type I RIGHT and LEFT renal cysts. No follow-up necessary. No obstructive uropathy. 6. Multiple iliac and LEFT periaortic calcified lymph nodes consistent with sequelae of a prior granulomatous disease. 7. Small RIGHT hepatic hemangioma and small RIGHT hepatic cyst. 8. Small hiatal hernia Bosniak class I and II cysts are considered benign, and require no additional imaging follow-up based on consensus guidelines (JACR 2010; 7:753-773). Electronically Signed: Garry Hill MD at 20:33 EDT , ADDENDUM: 05/15/242050 IMPRESSION: 1. Mild fluid and gas distention of proximal and mid bowel segments, distal small bowel is decompressed, findings consistent with early developing versus partial SBO. 2. No evidence diverticulitis. 3. The appendix is not positively identified. 4. Status post cholecystectomy. No ductal dilatation. 5. Benign Bosniak type I RIGHT and LEFT renal cysts. No follow-up necessary. No obstructive uropathy. 6. Multiple iliac and LEFT periaortic calcified lymph nodes consistent with sequelae of a prior granulomatous disease. 7. Small RIGHT hepatic hemangioma and small RIGHT hepatic cyst. 8. Small hiatal hernia Bosniak class I and II cysts are considered benign, and require no additional imaging follow-up based on consensus guidelines (JACR 2010; 7:753-773). N.B. : The above Results were Read Back by Garry Hill MD to Jaquan Gonzalez DO, and understanding confirmed on 05/15/2024 20:44:33 (ET). Electronically Signed: Garry Hill MD at 20:33 EDT , Assessment & Plan Assessment/Plan (1) SBO (small bowel obstruction): (2) Nausea and vomiting: QUALIFIERS: Vomiting type: unspecified Qualified Code(s): R11.2 - Nausea with vomiting, unspecified (3) Adverse drug reaction: QUALIFIERS: Encounter type: initial encounter Qualified Code(s): T50.905A - Adverse effect of unspecified drugs, medicaments and biological substances, initial encounter (4) Hypokalemia: (5) Leukocytosis: QUALIFIERS: Leukocytosis type: unspecified Qualified Code(s): D 72.829 - Elevated white blood cell count, unspecified (6) Essential hypertension: PLAN: Plan 1. CT scan of the abdomen and pelvis revealed evidence of early SBO; with mild fluid and gas distention of proximal and mid bowel segments, distal small bowel is decompressed with nausea and vomiting - Admit to general medical floor and start Protonix 40 mg IV daily. Keep strict n.p.o. and place NG tube to IWS if vomiting develops. Volume resuscitate with normal saline IV fluid and give IV Zofran as needed nausea and vomiting. Hemoccult stools with black discoloration noted - which is likely due to laxatives. Check KUB in a.m. to evaluate for possible improvement with conservative medical management. Finally, we will consult Dr. Amos of general surgery to see this patient on rounds in the a.m. for further recommendations with help appreciated in advance. 2. Adverse drug reaction to opiate use for pain control after Left TKR approximately 1 week ago in the setting of known IBS of alternating constipation + diarrhea-type precipitating #1 - Minimize opiate medications in an effort not to further diminish patient's already decreased bowel motility. Restart Reglan IV when okay with general surgery. 3. History of SBO; with previous lysis of adhesions in the setting of numerous abdominal surgeries outlined above in HPI: history of cholecystectomy (2003), history of hysterectomy (1979), history of appendectomy (1978), history of small intestinal surgery apparently due to SBO (1977) plus known gastroparesis predisposing to #1 - #3 - Noted. Continue supportive care and monitor for improvement. 4. Hypokalemia of 3 mmol/L present on admission complicating #1 - #3 - Give supplemental IV KCl and then recheck level in a.m. to ensure improvement. 5. Leukocytosis of 15.2 K with mildly elevated LFT's present on admission likely due to acute stress-response arising from #1 - #4 - UA negative for acute infection along with CT. Serialize CBC daily to follow trend. 6. Essential hypertension - Give prn IV Hydralazine for systolic blood pressure > 160 mmHg. 7. Hyperlipidemia - Resume statin when patient is able to safely tolerate oral intake. 8. Hypothyroidism; with history of thyroid cancer and subsequent partial/Right thyroidectomy (2006) - Check TSH and start IV Synthroid. 9. Obesity; with BMI of 31.6 this admission - Weight loss will be recommended. 10. GERD; with history of EGD revealing PUD - Give Protonix 40 mg IV daily. 11. History of asthma - Stable with no evidence of flare. Give nebulizers prn. 12. Depression with anxiety - Restart home regimen when safe to do so. 13. CT this admission positive for benign Bosniak type-I Right and Left renal cysts with no follow-up recommended - Noted. 14. CT this admission also positive for Right hepatic meningioma and small Right hepatic cyst with a small hiatal hernia - Noted. 15. DVT prophylaxis - SCD's only in case surgery becomes necessary. Total time: Approximately 75 minutes. Charges/Coding Visit Charges Inpatient E&M: 39157 Init Hosp L3
[2024-05-15 22:55] VITALS: BMI 29.6
[2024-05-15 23:11] VITALS: BP 148/70; PULSE 101; RESP 17; TEMP 36.6; O2SAT 98
[2024-05-15 23:20] VITALS: BP 145/82; PULSE 105; RESP 18; TEMP 36.6; O2SAT 98
[2024-05-15] MEDS: KCL 20MEQ in 0.9% NS 20 MEQ/1,000 ML IV.SOLN. 100 MEQ IV (23:23)
[2024-05-16] MEDS: Pantoprazole Sodium 40 MG in 0.9% Normal Saline (100mL MB+) 100 ML 330 MG IV ×2 (01:33→12:17)
[2024-05-16] MEDS: Morphine 2 MG/ML Syringe IV ×2 (01:33→12:30)
[2024-05-16 05:13] VITALS: BP 121/75; PULSE 103; RESP 16; TEMP 36.4; O2SAT 98
[2024-05-16 06:00] VITALS: BMI 29.7
--- NOTE | 2024-05-16 06:00 | RAD_ITS ---
EXAM: XR ABDOMEN, 1 VIEW CLINICAL INDICATION: SBO SBO TECHNIQUE: Frontal supine view of the abdomen/pelvis. COMPARISON: CT scan abdomen and pelvis 05/15/2024. FINDINGS: LOWER THORAX: No acute pathology. GASTROINTESTINAL TRACT: There is mildly prominent large and small bowel gas with a nonobstructive pattern. Ileus cannot be excluded. ORGANS: There are surgical clips overlying right upper quadrant of the abdomen, consistent with prior cholecystectomy. No organomegaly. No abnormal calcifications. BONES/JOINTS: No acute pathology. SOFT TISSUES: No acute pathology. RAD/Abdomen Single View IMPRESSION: Mildly prominent large and small bowel gas may represent ileus. Significant mechanical obstruction is thought to be unlikely. Electronically Signed: Sameer Herrera MD at 7:32 EDT Reading Location ID and State: [facility] / [place] , Service support ,
[2024-05-16 07:31] LABS: Absolute Lymphocyte Count 4.48 X10^3/uL (0.83-4.51); Absolute Neutrophil Count 8.7 X10^3/uL (2.0-7.7); Basophil# 0.05 X10^3/uL; Basophil% 0.3 % (0-1); Eosinophil# 0.16 X10^3/uL; Eosinophils% 1.1 % (0-5); Hematocrit 29.9 % (37-47); Hemoglobin 9.8 g/dL (12.0-15.0); Lymphocyte # 4.48 X10^3/ul (0.83-4.51); Lymphocyte % 30.5 % (19-41); Mean Corp Hgb Conc 32.8 g/dL (32-36); Mean Corpuscular Hgb 28.8 pg (27.0-32.0); Mean Corpuscular Volume 87.9 fL (81-99); Mean Platelet Vol. 8.7 fl (6.2-12.0); Monocyte% 8.2 % (0-10); NRBC Flagged by Analyzer 0 % (0-5); Neutrophil # 8.66 X10^3/uL (2.7-7.7); Platelet Count 380 K/mm3 (150-450); RBC Distribution Width CV 13.6 % (11.6-14.6); RBC Distribution Width SD 43.4 fl (35.1-43.9); White Blood Count 14.7 K/mm3 (4.4-11.0)
--- NOTE | 2024-05-16 07:39 | CON.PCM.SX_ITS ---
Assessment & Plan Assessment/Plan (1) SBO (small bowel obstruction): PLAN: The patient was having nausea and vomiting 2 days ago but has not had any nausea and vomiting since. She is still having some mild abdominal pain mostly on the left. Pain is not severe and she has no guarding or rebound. I reviewed her CT scan which showed ileus versus small bowel obstruction versus partial small bowel obstruction. There is stool in the colon as well as gas. I am ordering a small bowel follow-through today to evaluate. Kuldeep Amos MD Pager: [facility] [address] [place] [address], [address] [place] [address] Office: HPI Consult Data Date of Consult: 05/16/24 HPI Narrative HPI Narrative: DAMIEN WELLER, is a 69 F who presents with abdominal pain. The patient had recent orthopedic surgery. She was taking codeine but started feeling constipated and then started taking MiraLAX. She was vomiting but has not vomited in 2 days. She reports she had a bowel movement yesterday. She says she is passing gas. She has had a laparotomy for small bowel obstruction in the past this was more than 40 years ago. She has not had recurrent bowel obstruction since. FORMERLY [facility], [facility] Medical History Anxiety Alcohol use Thyroid disease History of IBS Asthma Shortness of breath on exertion History of pain when walking Cardiology follow-up encounter History of echocardiogram SBO (small bowel obstruction) Essential hypertension Hyperlipidemia Tachycardia Wears glasses Difficulty swallowing History of ulceration Non-smoker GERD (gastroesophageal reflux disease) Thyroid cancer Arthritis Home Medications ?Medication ?Instructions ?Recorded ?Last Taken ?Type amitriptyline 10 mg tablet 10 mg PO QHS 04/21/18 05/07/24 History pravastatin 10 mg tablet 10 mg PO QHS 04/21/18 05/07/24 History multivitamin-ferrous 1 tab PO DAILY 11/19/21 05/06/24 History fumarate-folic acid 18 mg-400 mcg tablet (Centrum Women) thyroid (pork) 30 mg tablet 30 mg PO DAILY 11/19/21 05/08/24 04:00 History alprazolam 0.25 mg tablet 0.25 mg PO BID PRN PRN anxiety 12/17/23 Unknown History famotidine 40 mg tablet 40 mg PO BID #60 tabs 01/17/24 05/08/24 04:00 Rx metoclopramide HCl 5 mg tablet 5 mg PO TID #270 tabs 01/17/24 05/07/24 Rx diltiazem HCl 120 mg capsule,24 120 mg PO DAILY #90 caps 03/13/24 05/08/24 04:00 Rx hr,extended release hydrochlorothiazide 25 mg tablet 25 mg PO DAILY #90 tabs 03/13/24 05/08/24 04:00 Rx carvedilol 12.5 mg tablet 12.5 mg PO BID #180 TABLETS 05/01/24 05/08/24 04:00 Rx acetaminophen 500 mg capsule 1,000 mg PO Q8H PRN PRN pain 05/15/24 Unknown History aspirin 81 mg tablet,delayed 81 mg PO BID 05/15/24 Unknown History release (Adult Aspirin Regimen) celecoxib 200 mg capsule 200 mg PO DAILY 05/15/24 Unknown History cholecalciferol (vitamin D3) 25 5,000 unit PO MO 05/15/24 Unknown History mcg (1,000 unit) capsule (Vitamin D3) ondansetron 4 mg disintegrating 4 mg PO Q6H PRN PRN nausea 05/15/24 Unknown History tablet pancreatin 500 mg tablet mg PO 05/15/24 Unknown History Allergy/AdvReac Type Severity Reaction Status Date / Time codeine Allergy Unknown Unknown Verified 05/15/24 16:32 Family History Sister Breast cancer Thyroid cancer Father Diabetes Heart disease Hypertension CVA (cerebral vascular accident) Mother Diabetes Surgical History Status post total left knee replacement Hx of esophagogastroduodenoscopy History of bilateral cataract extraction History of intestinal surgery Hx of colonoscopy H/O: hysterectomy Hx of appendectomy H/O partial thyroidectomy Hx of cholecystectomy Social History Smoking Status: Never smoker second hand exposure: No alcohol intake: never substance use type: does not use caffeine: Yes what type of physical activity do you participate in: none seatbelt use: always do you feel safe at home: Yes additional social history: - Kirill DACOSTA Constitutional Constitutional: Denies anorexia, chills, fatigue or fever(s) Eyes Eyes: Denies blurry vision ENT HEENT: Denies abnormal hearing Cardiovascular Cardiovascular: Denies chest pain Respiratory/Chest Respiratory/Chest: Denies cough or dyspnea Gastrointestinal Gastrointestinal: Reports abdominal pain, constipation, nausea and vomiting; Denies dysphagia or hematemesis Genitourinary Genitourinary: Denies change in urinary stream Musculoskeletal Musculoskeletal: Denies abnormal gait Endocrine Endocrinology: Denies flushing Hematologic/Lymphatic Hematologic/Lymphatic: Denies easy bleeding Physical Exam Const alert and oriented x3 HEENT normocephalic Eyes PERRL Resp normal respiratory effort Cardio Rate: regular rate Rhythm: regular rhythm GI soft to palpation Inspection: abdominal distention Palpation: tender LLQ Extremity normal to inspection Lab / Micro Data 05/16/24 06:53 05/15/24 19:00 Labs: Laboratory Results - last 24 hr 05/15/24 18:55: Urine Color Yellow, Urine Clarity Clear, Urine pH 7.0, Ur Specific Conway 1.005, Urine Protein Negative, Urine Glucose (UA) Normal, Urine Ketones Negative, Urine Occult Blood 50 H, Urine Nitrite Negative, Urine Bilirubin Negative, Urine Urobilinogen Normal, Ur Leukocyte Esterase Negative, Urine RBC 0-5 SEEN, Urine WBC 0 SEEN, Ur Squamous Epith Cells 0-5 SEEN, Urine Bacteria 0 SEEN, Urine Mucus 0 SEEN 05/15/24 19:00: WBC 15.2 H, RBC 4.06 L, Hgb 11.8 L, Hct 35.6 L, MCV 87.7, MCH 29.1, MCHC 33.1, RDW Std Deviation 42.7, RDW Coeff of Juan 13.3, Plt Count 397, MPV 8.6, Immature Gran % (Auto) 0.700, Neut % (Auto) 61.1, Lymph % (Auto) 26.3, Haakon % (Auto) 10.7 H, Eos % (Auto) 1.0, Baso % (Auto) 0.2, Absolute Neuts (auto) 9.3 H, Absolute Lymphs (auto) 3.99, Nucleated RBC % 0, Differential Comment SEE COMMENT, Platelet Estimate ADEQUATE, RBC Morphology NORM C+C, Anisocytosis RARE, Sodium 134 L, Potassium 3.0 L, Chloride 97 L, Carbon Dioxide 27.0, Anion Gap 10, BUN 12, Creatinine 1.09 H, Estim Creat Clear Calc 42.37, Est GFR (MDRD) Af Amer 64, Est GFR (MDRD) Non-Af 53 L, BUN/Creatinine Ratio 11.0, Glucose 102, Calcium 9.0, Total Bilirubin 0.40, Direct Bilirubin 0.22, AST 75 H, ALT 130 H, Alkaline Phosphatase 207 H, Total Protein 7.3, Albumin 2.9 L, Globulin 4.4 H, A lbumin/Globulin Ratio 0.7 L, Lipase 36 05/16/24 06:53: WBC 14.7 H, RBC 3.40 L, Hgb 9.8 L, Hct 29.9 L, MCV 87.9, MCH 28.8, MCHC 32.8, RDW Std Deviation 43.4, RDW Coeff of Juan 13.6, Plt Count 380, MPV 8.7, Immature Gran % (Auto) 0.900, Neut % (Auto) 59.0, Lymph % (Auto) 30.5, Haakon % (Auto) 8.2, Eos % (Auto) 1.1, Baso % (Auto) 0.3, Absolute Neuts (auto) 8.7 H, Absolute Lymphs (auto) 4.48, Nucleated RBC % 0 Imaging Radiology Impression Abdomen/Pelvis CT 05/15/24 18:42 IMPRESSION: 1. Mild fluid and gas distention of proximal and mid bowel segments, distal small bowel is decompressed, findings consistent with early developing versus partial SBO. 2. No evidence diverticulitis. 3. The appendix is not positively identified. 4. Status post cholecystectomy. No ductal dilatation. 5. Benign Bosniak type I RIGHT and LEFT renal cysts. No follow-up necessary. No obstructive uropathy. 6. Multiple iliac and LEFT periaortic calcified lymph nodes consistent with sequelae of a prior granulomatous disease. 7. Small RIGHT hepatic hemangioma and small RIGHT hepatic cyst. 8. Small hiatal hernia Bosniak class I and II cysts are considered benign, and require no additional imaging follow-up based on consensus guidelines (JACR 2010; 7:753-773). Electronically Signed: Garry Hill MD at 20:33 EDT , ADDENDUM: 05/15/242050 IMPRESSION: 1. Mild fluid and gas distention of proximal and mid bowel segments, distal small bowel is decompressed, findings consistent with early developing versus partial SBO. 2. No evidence diverticulitis. 3. The appendix is not positively identified. 4. Status post cholecystectomy. No ductal dilatation. 5. Benign Bosniak type I RIGHT and LEFT renal cysts. No follow-up necessary. No obstructive uropathy. 6. Multiple iliac and LEFT periaortic calcified lymph nodes consistent with sequelae of a prior granulomatous disease. 7. Small RIGHT hepatic hemangioma and small RIGHT hepatic cyst. 8. Small hiatal hernia Bosniak class I and II cysts are considered benign, and require no additional imaging follow-up based on consensus guidelines (JACR 2010; 7:753-773). N.B. : The above Results were Read Back by Garry Hill MD to Jaquan Gonzalez DO, and understanding confirmed on 05/15/2024 20:44:33 (ET). Electronically Signed: Garry Hill MD at 20:33 EDT , KUB X-Ray 05/16/24 06:00 IMPRESSION: Mildly prominent large and small bowel gas may represent ileus. Significant mechanical obstruction is thought to be unlikely. Electronically Signed: Sameer Herrera MD at 7:32 EDT ,
--- NOTE | 2024-05-16 08:30 | RAD_ITS ---
STUDY: GASTROGRAFIN SMALL BOWEL FOLLOW-THROUGH EXAMINATION. REASON FOR EXAM: Female, 69 years old. Partial small bowel obstruction -- Gastrografin TECHNIQUE: The patient ingested Gastrografin. A small bowel follow-through examination was obtained. COMPARISON: None. FINDINGS: A color maker formulator view was obtained. Gas-filled small bowel loops are seen. Fecal material seen in the colon. The patient is status post cholecystectomy. There is evidence of mild dilatation of central small bowel loops. Within 2 hours, contrast is seen in the large bowel. RAD/Small Bowel Series Only IMPRESSION: No evidence of bowel obstruction. Findings suggest a mild ileus. Electronically Signed: Burt Rice MD at 15:04 EDT ,
[2024-05-16 09:11] LABS: Lactic Acid 0.5 mmol/L (0.4-1.9)
[2024-05-16 09:31] VITALS: O2SAT 93
--- NOTE | 2024-05-16 09:42 | CASEMGMT ---
GREGG CM to pt room at this time for Assessment. Pt is currently off of the floor. CM to follow.
[2024-05-16 11:00] VITALS: PULSE 105
[2024-05-16 11:15] VITALS: BP 127/77; PULSE 105; RESP 17; TEMP 36.7; O2SAT 97
[2024-05-16 12:01] LABS: Pathologist Review Reviewed
[2024-05-16 12:06] LABS: ALB/GLOB Ratio 0.7 RATIO (0.9-2.4); AST(SGOT) 53 U/L (15-37); Alanine Aminotransfer ALT/SGPT 96 U/L (13-56); Albumin, Serum 2.4 g/dL (3.2-5.0); Alkaline Phosphatase 158 U/L (45-117); Anion Gap 10 (5-15); BUN 11 mg/dL (7-18); Calcium,Total 8.2 mg/dL (8.5-10.1); Chloride 104 mmol/L (98-107); EST Glomerular Filtration Rate 52 mL/min (>60); Est Glom Filt Rate - Afr Amer 63 mL/min (>60); Globulin 3.6 g/dL (2.2-4.2); Glucose 91 mg/dL (74-106); Phosphorus 3.4 mg/dL (2.5-4.9); Potassium 3.4 mmol/L (3.5-5.1); Sodium Level 138 mmol/L (136-145); Thyroid Stim Hormone (TSH) 1.45 uIU/mL (0.358-3.74)
[2024-05-16] MEDS: Acetaminophen 500 MG Tablet 1000 MG PO (12:37)
[2024-05-16] MEDS: Ondansetron 4 MG/2 ML Vial IV (12:43)
[2024-05-16] MEDS: 0.9% Saline Lock 10 ML Syringe IV ×2 (12:45→16:43)
--- NOTE | 2024-05-16 12:55 | CASEMGMT ---
GREGG TAY Assessment Face to Face with patient for initial transition planning/care coordination assessment. GREGG TAY introduced self and role at [facility], pt voices understanding. Pt is A&Ox4 and is resting comfortably in bed and is calm. Care providers, pharmacy, and demographics verified. Admitting dx: SBO, N/V, Hypokalemia PCP: Nicholas Specialists: Friend (MICHAELA), JOSÉG Preferred Pharmacy: [facility] Insurance: [facility], [facility] Prescription Benefit: Yes LNOK: Kirill Dale (H) Living Arrangements: Pt lives with her in a two story home with 12 steps to enter ADLs/IADLs: states independent Transportation: Self, DME: Cane, FWW, BP Monitor. Denies further needs HHC/SNF: Denies SNF Hx or needs. Pt is active with [facility] Pt?s goal: Home Plan: Home with the continuation of [facility] (SN, PT, and OT). Pt denies wanting to see a list of local in-network C Agencies and states that she would like to continue services through [facility]. [facility] is aware of pt admission. Pt 6-Click is 24. PT is pending. CM to follow. Zara Kaye RN, CM
--- NOTE | 2024-05-16 14:05 | RAD_ITS ---
STUDY: X-RAY - ABDOMEN/PELVIS REASON FOR EXAM: Female, 69 years old. small bowel series TECHNIQUE: Single AP view of the abdomen / pelvis. COMPARISON: None. FINDINGS: Status post cholecystectomy. There is an unremarkable bowel gas pattern. Oral contrast throughout the stomach, small bowel, and colon without evidence of bowel dilatation to suggest bowel obstruction. The visualized liver, spleen and kidneys are grossly normal in size and morphology. Normal soft tissue structures. Normal visualized osseous structures. RAD/Abdomen Single View (Portable) IMPRESSION: No bowel obstruction. Electronically Signed: Garry Chairez MD at 14:18 EDT ,
--- NOTE | 2024-05-16 14:20 | CASEMGMT ---
CURTIS Lr at [facility], they are willing to take pt back for services. Order placed for SN, PT and OT.
--- NOTE | 2024-05-16 14:52 | CHAPLAIN ---
Type of Pastoral Visit _x__ Initial Visit ___ Follow-up Visit ___ On-call Visit ___ General Patient Visit ___ Spiritual Assessment ___ Family Conference ___ Bereavement ___ Rapid Response ___ Code Blue ___ Other (describe below) Pastoral Care Referral From _x__ Patient ___ Family ___ Nurse ___ Physician ___ Emergency Planning And Response Manager ___ Balloon Design Printer ___ Other (describe below) Sacrament/Intervention ___ Active listening ___ Anointing ___ Oriental Orthodox ___ Bereavement ___ Communion ___ Monica exploration ___ ___ Life review _x__ Prayer ___ Reconciliation ___ Sacrament of Sick _x__ Supportive presence ___ Wedding ___ Other (describe below) Pastoral Comments patient is resting and requests a prayer after a brief conversation; pt sees that prayer and rest are mostly what she needs now; she declares that otherwise this is sufficient for her care today; pt is member of a local moravian and has support
--- NOTE | 2024-05-16 15:53 | CASEMGMT ---
Social Work SW met with pt to discuss advance directives.? Pt confirms she has completed a living will and health care POA naming Kirill, .? Pt notified that documents are not on file at [facility] and SW requested they be brought in for scanning into the EMR.? FRANCK Cardoza
[2024-05-16] MEDS: KCL 20MEQ in 0.9% NS 20 MEQ/1,000 ML IV.SOLN. 100 MEQ IV (16:37)
[2024-05-16] MEDS: LEVOTHYROXINE SODIUM 100 MCG VIAL IV (16:43)
[2024-05-16 16:51] VITALS: BP 131/78; PULSE 105; RESP 17; TEMP 36.6; O2SAT 96
--- NOTE | 2024-05-16 17:25 | PCM.DC ---
Discharge Instructions Diet Discharge Diet: No restrictions Activity Discharge Activity: Return to Normal Activity Weight Bearing Status: Full weight bearing Follow Up Care Test Results: Test results from this visit will be discussed in further detail at your follow-up appointment, if applicable. Discharge Plan Admission Admit Date/Time: 05/15/24 21:34 Primary Reason for Your Visit: ileus Attending Provider: Seven Hartman Primary Care Provider: Ayde Peterson Consulting Providers: Mohsen Snow; Kuldeep Amos Instructions Additional Instructions / Restrictions: Take MiraLAX 17 g twice a day to prevent constipation Discharge Orders/Prescriptions Prescriptions: New acetaminophen 500 mg Tablet 1,000 mg PO TID Qty: 0 0RF tramadol 50 mg tablet 50 mg PO Q6H PRN (Reason: pain) Qty: 40 0RF Rx Instructions: one or two four times a day as needed for pain Continued pravastatin 10 mg tablet 10 mg PO QHS amitriptyline 10 mg tablet 10 mg PO QHS thyroid (pork) 30 mg tablet 30 mg PO DAILY Centrum Women 18-400 mg-mcg tablet 1 tab PO DAILY alprazolam 0.25 mg tablet 0.25 mg PO BID PRN PRN (Reason: anxiety) metoclopramide HCl 5 mg tablet 5 mg PO TID Qty: 270 3RF Rx Instructions: administer 30 minutes before meals famotidine 40 mg tablet 40 mg PO BID Qty: 60 11RF celecoxib 200 mg capsule 200 mg PO DAILY Patient Comments: for 14d starting 05/09 ondansetron 4 mg tablet,disintegrating 4 mg PO Q6H PRN PRN (Reason: nausea) aspirin [Adult Aspirin Regimen] 81 mg tablet,delayed release (DR/EC) 81 mg PO BID acetaminophen 500 mg capsule 1,000 mg PO Q8H PRN PRN (Reason: pain) pancreatin 500 mg tablet PO Patient Comments: takes pancreatin 2000 from [employer]. not available on our med list cholecalciferol (vitamin D3) [Vitamin D3] 25 mcg (1,000 unit) capsule 5,000 unit PO MO diltiazem HCl 120 mg capsule,extended release 24 hr 120 mg PO DAILY Qty: 90 3RF hydrochlorothiazide 25 mg tablet 25 mg PO DAILY Qty: 90 3RF carvedilol 12.5 mg tablet 12.5 mg PO BID Qty: 180 3RF Referrals / Follow Up: Ayde Peterson MD [Primary Care Provider] - Disposition Disposition (needs filled in before D/C Order can be placed): Home Health Service
--- NOTE | 2024-05-16 17:33 | PCM.DC.SUM ---
Providers Date of Admission: 05/15/24 Date of Discharge: 05/16/24 Primary Care Physician: Dr. Ayde Peterson MD Consultations 05/15/24 22:55 Consult: General Surgery Routine Consulting Provider: Kuldeep Amos Reason for Consult: SBO EMERGENT Consult: No MD Notified: Yes Date Notified: 05/15/24 Time Notified: 07:00 Method of Notification: ED Physician Initiated Reason For Visit: SBO; NAUSEA AND VOMITING PLUS HYPOKALEMIA Diagnosis Discharge Diagnosis (1) SBO (small bowel obstruction): Status: Acute Code(s): K56.609 - Unspecified intestinal obstruction, unspecified as to partial versus complete obstruction Plan 1. Ileus secondary to prescription pain medication and immobility from recent knee replacement #2 abdominal pain secondary to #1 #3 osteoarthritis #4 essential hypertension Medications at Discharge Home Medications amitriptyline 10 mg tablet 10 mg PO QHS 04/21/18 pravastatin 10 mg tablet 10 mg PO QHS 04/21/18 multivitamin-ferrous fumarate-folic acid 18 mg-400 mcg tablet (Centrum Women) 1 tab PO DAILY 11/19/21 thyroid (pork) 30 mg tablet 30 mg PO DAILY 11/19/21 alprazolam 0.25 mg tablet 0.25 mg PO BID PRN PRN anxiety 12/17/23 famotidine 40 mg tablet 40 mg PO BID #60 tabs 01/17/24 metoclopramide HCl 5 mg tablet 5 mg PO TID #270 tabs 01/17/24 diltiazem HCl 120 mg capsule,24 hr,extended release 120 mg PO DAILY #90 caps 03/13/24 hydrochlorothiazide 25 mg tablet 25 mg PO DAILY #90 tabs 03/13/24 carvedilol 12.5 mg tablet 12.5 mg PO BID #180 TABLETS 05/01/24 acetaminophen 500 mg capsule 1,000 mg PO Q8H PRN PRN pain 05/15/24 aspirin 81 mg tablet,delayed release (Adult Aspirin Regimen) 81 mg PO BID 05/15/24 celecoxib 200 mg capsule 200 mg PO DAILY 05/15/24 cholecalciferol (vitamin D3) 25 mcg (1,000 unit) capsule (Vitamin D3) 5,000 unit PO MO 05/15/24 ondansetron 4 mg disintegrating tablet 4 mg PO Q6H PRN PRN nausea 05/15/24 pancreatin 500 mg tablet mg PO 05/15/24 acetaminophen 500 mg tablet 1,000 mg (2 x 500 mg) PO TID Pain 1-10 Or Fever #0 tabs 05/16/24 tramadol 50 mg tablet 50 mg PO Q6H PRN pain #40 tabs 05/16/24 Hospital Course Operations None Procedures None Summary of Care Provided Minutes Spent on Discharge: 30 Hospital Course: This 69-year-old black female was seen in the emergency room at [facility] with complaints of generalized abdominal pain, CT scan was performed which showed ileus versus small bowel obstruction versus partial small bowel obstruction, general surgery was contacted and agreed to see the patient in consultation after she was admitted by the hospitalist service. Patient had undergone left knee replacement a week prior and was taking pain medications at home for knee pain. She contacted her orthopedic surgeon who recommended stool softeners and the patient had been taking Senokot and MiraLAX, she denied constipation but she had an episode of nausea and vomiting 2 days prior to being seen in the ER. Patient was admitted to [place] [address], she was seen in consultation by general surgery and was given IV fluids and underwent a small bowel series with follow-through. Patient was able to have several stools during her hospitalization and her abdominal pain resolved. On 05/16/2024, patient was seen and examined: On examination she appeared in good health and spirits, she does not appear to be in any distress. Vital signs as documented. Skin warm and dry and without overt rashes. Neck without JVD, thyroid appears normal, trachea is midline, neck is supple. Lungs clear, normal air movement was noted. Heart exam notable for regular rhythm, normal sounds and absence of murmurs, rubs or gallops. Abdomen unremarkable and without evidence of organomegaly, masses, or abdominal aortic enlargement, bowel sounds are present in all 4 quadrants, no abdominal tenderness was noted. Extremities nonedematous, no cyanosis was noted, no clubbing was noted. Neuro: Cranial nerves II through XII are grossly intact, no focal motor deficits were noted, sensation to light touch and pinprick is intact, motor exam 5/5 throughout. Psych: Patient is alert and oriented x3, she does not appear anxious or depressed, she does not appear agitated. On 05/16/2024, patient was seen and examined and felt to be stable for discharge home, she was given a prescription for tramadol for pain, she was instructed to take Tylenol 1000 mg 3 times daily and was instructed to take MiraLAX 17 g twice a day. Weight / BMI Weight Weight: 68.8 kg Body Mass Index (BMI) 29.7 ABG / Lab / Microbiology Data 05/16/24 06:53 05/16/24 06:53 Laboratory: Laboratory Results - last 24 hr 05/15/24 18:55: Urine Color Yellow, Urine Clarity Clear, Urine pH 7.0, Ur Specific [place] 1.005, Urine Protein Negative, Urine Glucose (UA) Normal, Urine Ketones Negative, Urine Occult Blood 50 H, Urine Nitrite Negative, Urine Bilirubin Negative, Urine Urobilinogen Normal, Ur Leukocyte Esterase Negative, Urine RBC 0-5 SEEN, Urine WBC 0 SEEN, Ur Squamous Epith Cells 0-5 SEEN, Urine Bacteria 0 SEEN, Urine Mucus 0 SEEN 05/15/24 19:00: WBC 15.2 H, RBC 4.06 L, Hgb 11.8 L, Hct 35.6 L, MCV 87.7, MCH 29.1, MCHC 33.1, RDW Std Deviation 42.7, RDW Coeff of Juan 13.3, Plt Count 397, MPV 8.6, Immature Gran % (Auto) 0.700, Neut % (Auto) 61.1, Lymph % (Auto) 26.3, [place] % (Auto) 10.7 H, Eos % (Auto) 1.0, Baso % (Auto) 0.2, Absolute Neuts (auto) 9.3 H, Absolute Lymphs (auto) 3.99, Nucleated RBC % 0, Differential Comment SEE COMMENT, Diff Path Review Reviewed, Platelet Estimate ADEQUATE, RBC Morphology NORM C+C, Anisocytosis RARE, Sodium 134 L, Potassium 3.0 L, Chloride 97 L, Carbon Dioxide 27.0, Anion Gap 10, BUN 12, Creatinine 1.09 H, Estim Creat Clear Calc 42.37, Est GFR (MDRD) Af Amer 64, Est GFR (MDRD) Non-Af 53 L, BUN/Creatinine Ratio 11.0, Glucose 102, Calcium 9.0, Total Bilirubin 0.40, Direct Bilirubin 0.22, AST 75 H, ALT 130 H, Alkaline Phosphatase 207 H, Total Protein 7.3, Albumin 2.9 L, Globulin 4.4 H, Albumin/Globulin Ratio 0.7 L, Lipase 36 05/16/24 06:53: WBC 14.7 H, RBC 3.40 L, Hgb 9.8 L, Hct 29.9 L, MCV 87.9, MCH 28.8, MCHC 32.8, RDW Std Deviation 43.4, RDW Coeff of Juan 13.6, Plt Count 380, MPV 8.7, Immature Gran % (Auto) 0.900, Neut % (Auto) 59.0, Lymph % (Auto) 30.5, [place] % (Auto) 8.2, Eos % (Auto) 1.1, Baso % (Auto) 0.3, Absolute Neuts (auto) 8.7 H, Absolute Lymphs (auto) 4.48, Nucleated RBC % 0, Sodium 138, Potassium 3.4 L, Chloride 104, Carbon Dioxide 24.0, Anion Gap 10, BUN 11, Creatinine 1.10 H, Estim Creat Clear Calc 40.60, Est GFR (MDRD) Af Amer 63, Est GFR (MDRD) Non-Af 52 L, BUN/Creatinine Ratio 10.0, Glucose 91, Lactic Acid 0.5, Calcium 8.2 L, Phosphorus 3.4, Magnesium 2.0, Total Bilirubin 0.40, AST 53 H, ALT 96 H, Alkaline Phosphatase 158 H, Total Protein 6.0 L, Albumin 2.4 L, Globulin 3.6, Albumin/Globulin Ratio 0.7 L, TSH 1.45 Radiography Diagnostic Testing: Radiology Impression Abdomen/Pelvis CT 05/15/24 18:42 IMPRESSION: 1. Mild fluid and gas distention of proximal and mid bowel segments, distal small bowel is decompressed, findings consistent with early developing versus partial SBO. 2. No evidence diverticulitis. 3. The appendix is not positively identified. 4. Status post cholecystectomy. No ductal dilatation. 5. Benign Bosniak type I RIGHT and LEFT renal cysts. No follow-up necessary. No obstructive uropathy. 6. Multiple iliac and LEFT periaortic calcified lymph nodes consistent with sequelae of a prior granulomatous disease. 7. Small RIGHT hepatic hemangioma and small RIGHT hepatic cyst. 8. Small hiatal hernia Bosniak class I and II cysts are considered benign, and require no additional imaging follow-up based on consensus guidelines (JACR 2010; 7:753-773). Electronically Signed: Garry Hill MD at 20:33 EDT , ADDENDUM: 05/15/242050 IMPRESSION: 1. Mild fluid and gas distention of proximal and mid bowel segments, distal small bowel is decompressed, findings consistent with early developing versus partial SBO. 2. No evidence diverticulitis. 3. The appendix is not positively identified. 4. Status post cholecystectomy. No ductal dilatation. 5. Benign Bosniak type I RIGHT and LEFT renal cysts. No follow-up necessary. No obstructive uropathy. 6. Multiple iliac and LEFT periaortic calcified lymph nodes consistent with sequelae of a prior granulomatous disease. 7. Small RIGHT hepatic hemangioma and small RIGHT hepatic cyst. 8. Small hiatal hernia Bosniak class I and II cysts are considered benign, and require no additional imaging follow-up based on consensus guidelines (JACR 2010; 7:753-773). N.B. : The above Results were Read Back by Garry Hill MD to Jaquan Gonzalez DO, and understanding confirmed on 05/15/2024 20:44:33 (ET). Electronically Signed: Garry Hill MD at 20:33 EDT , KUB X-Ray 05/16/24 06:00 IMPRESSION: Mildly prominent large and small bowel gas may represent ileus. Significant mechanical obstruction is thought to be unlikely. Electronically Signed: Sameer Herrera MD at 7:32 EDT , Small Bowel X-Ray 05/16/24 08:30 IMPRESSION: No evidence of bowel obstruction. Findings suggest a mild ileus. Electronically Signed: Burt Rice MD at 15:04 EDT , KUB X-Ray 05/16/24 14:05 IMPRESSION: No bowel obstruction. Electronically Signed: Garry Chairez MD at 14:18 EDT , D/C Instructions Discharge Diet: No restrictions Weight Bearing Status: Full weight bearing Meaningful Use Info Meaningful Use Meaningful Use Diagnoses (Choose all that apply): None applicable Ischemic Stroke Statin Dosing Therapy Reference: STATIN DOSE THERAPY REFERENCE: * Patients > 75 years receive moderate or high dose statin therapy. * Patients 75 years or YOUNGER should receive HIGH intensity statin dose unless contraindicated. You will be required to document reason for non-treatment if statin daily dose does not meet guidelines. HIGH DOSE STATIN THERAPY DAILY Atorvastatin > than or = to 40 mg Rosuvastatin > than or = to 20 mg Amlodipine + Atorvastatin > than or = to 2.5/40 mg Ezetimibe + Simvastatin 10/80 mg Simvastatin 80mg Discharge Plan Admission Admit Date/Time: 05/15/24 21:34 Primary Reason for Your Visit: ileus Attending Provider: Seven Hartman Primary Care Provider: Ayde Peterson Consulting Providers: Mohsen Snow; Kuldeep Amos Instructions Additional Instructions / Restrictions: Take MiraLAX 17 g twice a day to prevent constipation Discharge Orders/Prescriptions Prescriptions: New acetaminophen 500 mg Tablet 1,000 mg PO TID Qty: 0 0RF tramadol 50 mg tablet 50 mg PO Q6H PRN (Reason: pain) Qty: 40 0RF Rx Instructions: one or two four times a day as needed for pain Continued pravastatin 10 mg tablet 10 mg PO QHS amitriptyline 10 mg tablet 10 mg PO QHS thyroid (pork) 30 mg tablet 30 mg PO DAILY Centrum Women 18-400 mg-mcg tablet 1 tab PO DAILY alprazolam 0.25 mg tablet 0.25 mg PO BID PRN PRN (Reason: anxiety) metoclopramide HCl 5 mg tablet 5 mg PO TID Qty: 270 3RF Rx Instructions: administer 30 minutes before meals famotidine 40 mg tablet 40 mg PO BID Qty: 60 11RF celecoxib 200 mg capsule 200 mg PO DAILY Patient Comments: for 14d starting 05/09 ondansetron 4 mg tablet,disintegrating 4 mg PO Q6H PRN PRN (Reason: nausea) aspirin [Adult Aspirin Regimen] 81 mg tablet,delayed release (DR/EC) 81 mg PO BID acetaminophen 500 mg capsule 1,000 mg PO Q8H PRN PRN (Reason: pain) pancreatin 500 mg tablet PO Patient Comments: takes pancreatin 2000 from [employer]. not available on our med list cholecalciferol (vitamin D3) [Vitamin D3] 25 mcg (1,000 unit) capsule 5,000 unit PO MO diltiazem HCl 120 mg capsule,extended release 24 hr 120 mg PO DAILY Qty: 90 3RF hydrochlorothiazide 25 mg tablet 25 mg PO DAILY Qty: 90 3RF carvedilol 12.5 mg tablet 12.5 mg PO BID Qty: 180 3RF Referrals / Follow Up: Ayde Peterson MD [Primary Care Provider] - Disposition Disposition (needs filled in before D/C Order can be placed): Home Health Service Charges/Coding Visit Charges Inpatient E&M: 05669 Disch Hosp
[2024-05-16] MEDS: Menthol/Lanolin/Calamine/Znox 113 GM Tube 1 APPLIC TOPICAL (20:06)
[2024-05-16 20:11] VITALS: BP 147/97; PULSE 100; RESP 16; TEMP 36.8; O2SAT 97
== END 2024-05-16 20:35 | disposition home health service (06) | DRG 389 ==
LOC: ED 19:31 → MS3 22:09
PROVIDERS: Admitting Provider Internal Medicine; Emergency Provider Student in an Organized Health Care Education/Training Program; PCP Internal Medicine; Visit Provider Internal Medicine
DX: K56.609 Unspecified intestinal obstruction, unspecified as to partial versus complete obstruction (principal); K91.89 Other postprocedural complications and disorders of digestive system; D18.03 Hemangioma of intra-abdominal structures; K76.89 Other specified diseases of liver; D32.9 Benign neoplasm of meninges, unspecified; I10 Essential (primary) hypertension; E03.9 Hypothyroidism, unspecified; K44.9 Diaphragmatic hernia without obstruction or gangrene; E87.6 Hypokalemia; E78.5 Hyperlipidemia, unspecified; K21.9 Gastro-esophageal reflux disease without esophagitis; F41.8 Other specified anxiety disorders; E66.9 Obesity, unspecified; T50.905A Adverse effect of unspecified drugs, medicaments and biological substances, initial encounter; Z79.1 Long term (current) use of non-steroidal anti-inflammatories (NSAID); Z80.8 Family history of malignant neoplasm of other organs or systems; Z80.3 Family history of malignant neoplasm of breast; Z68.31 Body mass index [BMI] 31.0-31.9, adult; Z85.850 Personal history of malignant neoplasm of thyroid; Z96.652 Presence of left artificial knee joint
CPT/HCPCS: 36415; 74018; 74177; 74250; 80053; 80076; 81001; 83605; 83690; 83735; 84100; 84443; 85025; 97162; 99282; J7030; A4216; J2405; J3490

== ENCOUNTER → 2024-06-05 | Outpatient (CLI) | payer OTHER, MEDICARE, SELFPAY ==
--- NOTE | 2024-06-05 15:25 | VDLE_ITS ---
Reason For Study: LLE Pain RIGHT LEFT FV is compressible, spontaneous, phasic, GSV is normal. competent and demonstrates normal CFV is compressible, spontaneous, phasic, augmentation. competent, and demonstrates normal Procedure augmentation. This is a venous duplex using B-mode, color FV is compressible, spontaneous, phasic, flow and spectral Doppler. competent and demonstrates normal Exam performed in department. augmentation. The exam was diagnostic. POP V is compressible, spontaneous, phasic, A preliminary report was called and/or faxed competent and demonstrates normal to Dr. Kaye office. augmentation. T/P Trunk is compressible. PTV is compressible. LT PerV is compressible. VL/Venous Duplex US, Unilateral Interpretation Summary Deep veins of the left lower extremity are patent and compressible segmentally. There is no evidence of left lower extremity deep vein thrombosis. Valvular competence appears intac t within the proximal deep venous system on the left . The left great saphenous vein appears patent a nd compressible segmentally. The right femoral vein is patent and compressible. Ordering Physician: Dony Kaye Referring Physician: Ayde Peterson Performed By: Matteo Morgan, RVLazaro
== END | disposition home or self-care (01) ==
LOC: CVS 15:25
PROVIDERS: PCP Internal Medicine; Referring Provider Orthopaedic Surgery; Visit Provider Orthopaedic Surgery
DX: M79.662 Pain in left lower leg (principal)
CPT/HCPCS: 93971

== ENCOUNTER → 2024-06-19 | Outpatient (CLI) | payer OTHER, MEDICARE, SELFPAY ==
[2024-06-19 14:04] LABS: Mucous, Urine 0 SEEN /hpf (<or=2+); White Blood Cells 0 SEEN /hpf (0-5)
[2024-06-19 14:32] LABS: Color, Urine Yellow (Yellow); Glucose, Dipstick Normal (Normal); Ketone-Dipstick Negative (Negative); Leukocyte Esterase-Dipstick Negative /ul (Negative); Nitrite-Dipstick Negative (Negative); Occult Blood-Urine 150 /ul (Negative); Protein-Dipstick Negative (Negative); Urine Bilirubin Dipstick Negative (Negative); Urine Clarity Clear (Clear); Urine Urobilinogen Normal (Normal)
[2024-06-19 14:40] LABS: Albumin, Serum 3.5 g/dL (3.2-5.0); BUN 17 mg/dL (7-18); BUN/Creat Ratio 13.8 RATIO (10-20); Calcium,Total 9.2 mg/dL (8.5-10.1); Chloride 106 mmol/L (98-107); Creatinine, Serum 1.23 mg/dL (0.55-1.02); EST Glomerular Filtration Rate 46 mL/min (>60); Est Glom Filt Rate - Afr Amer 55 mL/min (>60); Glucose 102 mg/dL (74-106); Phosphorus 3.4 mg/dL (2.5-4.9); Potassium 3.5 mmol/L (3.5-5.1); Sodium Level 139 mmol/L (136-145)
[2024-06-19 14:41] LABS: Bacteria 1+ /hpf (None Seen); Red Blood Cells-Urine 50-100 SEEN /hpf (0-5); Squamous Epithelial Cells - UA 0-5 SEEN /hpf (5-10)
== END | disposition home or self-care (01) ==
PROVIDERS: PCP Internal Medicine; Referring Provider Internal Medicine Nephrology; Visit Provider Internal Medicine Nephrology
DX: N18.31 Chronic kidney disease, stage 3a (principal)
CPT/HCPCS: 36415; 80069; 81001

== ENCOUNTER → 2024-10-02 | Outpatient (CLI) | payer OTHER, MEDICARE, SELFPAY ==
[2024-10-02 12:40] LABS: ALB/GLOB Ratio 0.8 RATIO (0.9-2.4); AST(SGOT) 23 U/L (15-37); Alanine Aminotransfer ALT/SGPT 32 U/L (13-56); Albumin, Serum 3.8 g/dL (3.2-5.0); Alkaline Phosphatase 104 U/L (45-117); Anion Gap 7 (5-15); BUN 17 mg/dL (7-18); BUN/Creat Ratio 12.6 RATIO (10-20); Calcium,Total 9.5 mg/dL (8.5-10.1); Chloride 106 mmol/L (98-107); Cholesterol 219 mg/dL (200); Creatinine, Serum 1.35 mg/dL (0.55-1.02); EST Glomerular Filtration Rate 41 mL/min (>60); Est Glom Filt Rate - Afr Amer 50 mL/min (>60); Free T3 2.9 pg/mL (2.18-3.98); Globulin 4.7 g/dL (2.2-4.2); Glucose 106 mg/dL (74-106); High Density Lipoprotein 84 mg/dL; Potassium 3.3 mmol/L (3.5-5.1); Protein, Total 8.5 g/dL (6.4-8.2); Sodium Level 140 mmol/L (136-145); T4 Free Direct 0.95 ng/dL (0.76-1.46); Thyroid Stim Hormone (TSH) 0.872 uIU/mL (0.358-3.740); Triglycerides 137 mg/dL; Very Low Density Lipoprotein 27 mg/dL (5-40)
[2024-10-02 13:09] LABS: Vitamin D,25 Hydroxy 53.4 ng/mL
[2024-10-02 14:03] LABS: Hemoglobin A1c 5.9 % (3.8-5.6)
== END | disposition home or self-care (01) ==
PROVIDERS: PCP Internal Medicine; Referring Provider Internal Medicine Endocrinology, Diabetes & Metabolism; Visit Provider Internal Medicine Endocrinology, Diabetes & Metabolism
DX: E03.9 Hypothyroidism, unspecified (principal); R73.03 Prediabetes; E04.9 Nontoxic goiter, unspecified; E55.9 Vitamin D deficiency, unspecified; G62.9 Polyneuropathy, unspecified
CPT/HCPCS: 36415; 80053; 80061; 82306; 83036; 84439; 84443; 84481

== ENCOUNTER → 2025-04-03 | Outpatient (CLI) | payer OTHER, MEDICARE, SELFPAY ==
[2025-04-03 13:43] LABS: Hemoglobin A1c 6.2 % (<=5.6)
[2025-04-03 13:51] LABS: Microalbumin,Random Urine < 12.0 mg/L (NO RANGE EST.); Microalbumin:Creatinine Ratio UNABLE TO CALCULATE mg/g CRE
[2025-04-03 14:08] LABS: ALB/GLOB Ratio 1.2 RATIO (0.9-2.4); AST(SGOT) 21 U/L (<=31); Alanine Aminotransfer ALT/SGPT 17 U/L (<=34); Albumin, Serum 4.3 g/dL (3.4-4.8); Alkaline Phosphatase 109 U/L (35-104); Anion Gap 14 (5-15); BUN 23 mg/dL (4-19); BUN/Creat Ratio 18.2 RATIO (10-20); Calcium,Total 9.7 mg/dL (7.6-11.0); Carbon Dioxide 24.9 mmol/L (21.0-32.0); Chloride 100 mmol/L (98-108); Cholesterol 199 mg/dL (<=200); Creatinine, Serum 1.25 mg/dL (0.70-1.20); EST Glomerular Filtration Rate 46 (>60); Globulin 3.7 g/dL (2.2-4.2); Glucose 102 mg/dL (70-99); High Density Lipoprotein 69 mg/dL; Low Density Lipoprotein Calc. 111 mg/dL; Potassium 3.5 mmol/L (3.3-5.1); Sodium Level 139 mmol/L (133-145); Thyroid Stim Hormone (TSH) 0.459 uIU/mL (0.300-4.200); Total Bilirubin 0.27 mg/dL (0.00-1.30); Triglycerides 94 mg/dL; Very Low Density Lipoprotein 19 mg/dL (5-40); Vitamin D,25 Hydroxy 59.7 ng/mL (30-100); cholesterol:hdl ratio screen 2.88
== END | disposition home or self-care (01) ==
LOC: LAB 12:43
PROVIDERS: PCP Internal Medicine; Referring Provider Internal Medicine Endocrinology, Diabetes & Metabolism; Visit Provider Internal Medicine Endocrinology, Diabetes & Metabolism
DX: E03.9 Hypothyroidism, unspecified (principal); R73.03 Prediabetes; E04.9 Nontoxic goiter, unspecified; E55.9 Vitamin D deficiency, unspecified; G62.9 Polyneuropathy, unspecified
CPT/HCPCS: 36415; 80053; 80061; 82043; 82306; 82570; 83036; 84439; 84443; 84481

== ENCOUNTER → 2025-07-03 | Outpatient (CLI) | payer OTHER, MEDICARE, SELFPAY ==
[2025-07-03 14:36] LABS: Free T3 3.6 pg/mL (2.18-3.98)
== END | disposition home or self-care (01) ==
LOC: LAB 11:25
PROVIDERS: PCP Internal Medicine; Referring Provider Internal Medicine Endocrinology, Diabetes & Metabolism; Visit Provider Internal Medicine Endocrinology, Diabetes & Metabolism
DX: E03.9 Hypothyroidism, unspecified (principal); E55.9 Vitamin D deficiency, unspecified; G62.9 Polyneuropathy, unspecified; E04.9 Nontoxic goiter, unspecified; R73.03 Prediabetes
CPT/HCPCS: 36415; 84439; 84443; 84481

== ENCOUNTER → 2025-08-30 | Outpatient (CLI) | payer OTHER, MEDICARE, SELFPAY ==
[2025-08-30 14:46] LABS: Hematocrit 37.9 % (37-47); Hemoglobin 12.3 g/dL (12.0-15.0); Immature Granulocytes Count 0.020 X10^3/uL (0.0-0.0); Mean Corp Hgb Conc 32.5 g/dL (32-36); Mean Corpuscular Volume 88.8 fL (81-99); Mean Platelet Vol. 10.2 fl (6.2-12.0); NRBC Flagged by Analyzer 0 % (0-5); Platelet Count 340 K/mm3 (150-450); RBC Distribution Width CV 13.7 % (11.6-14.6); RBC Distribution Width SD 44.4 fl (35.1-43.9); Red Blood Count 4.27 M/mm3 (4.2-5.4); White Blood Count 9.9 K/mm3 (4.4-11.0)
== END | disposition home or self-care (01) ==
LOC: LAB 14:02
PROVIDERS: PCP Internal Medicine; Referring Provider Nurse Practitioner Acute Care; Visit Provider Nurse Practitioner Acute Care
DX: D64.9 Anemia, unspecified (principal); R19.5 Other fecal abnormalities; R53.83 Other fatigue
CPT/HCPCS: 36415; 85025

== ENCOUNTER 2025-10-08 09:19 | Day surgery (SDC) | payer OTHER, MEDICARE, SELFPAY ==
--- NOTE | 2025-10-04 17:17 | PAT.ANESEVAL ---
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 When Was Last Pacemaker Check QUESTION #4 FULL TEXT: You/Your Family Experience fever (hyperthermia) with Anesthesia Last Oral Intake Last Oral intake: Last Oral Intake NPO since Meds taken in AM with sips of water? Meds patient instructed to take am of surgery PONV PONV - multicraft operator: PONV - multicraft operator Female Yes 10/04/25 13:44 HX of Motion Sickness No 10/04/25 13:44 HX of N/V After Surgery Yes 10/04/25 13:44 Non-Smoker Yes 10/04/25 13:44 Duration of Surgery greater No 10/04/25 13:44 than 60 minutes Number of Risk Factors 3 10/04/25 13:44 PONV Score Moderate Risk 10/04/25 13:44 Height & Weight Height & Weight: Anesthesia: Height & Weight Height 5 ft 08/30/25 13:35 Respiratory Assessment Respiratory Assessment - multicraft operator: Respiratory Tract Infection Hx - multicraft operator Hx Respiratory Tract Infection No 10/04/25 13:44 STOP Sleep Apnea STOP Sleep Apnea - multicraft operator: STOP Sleep Apnea - multicraft operator Hx Hypertension Yes: ON MEDS 10/04/25 13:44 Hx Sleep Apnea No 10/04/25 13:44 CPAP BIPAP Do you snore loudly (louder No 10/04/25 13:44 than talking or can be heard Do you often feel tired/ No 10/04/25 13:44 fatigued/ sleepy during daytime? Has anyone observed you stop No 10/04/25 13:44 breathing during sleep? STOP Results Negative 10/04/25 13:44 QUESTION #5 FULL TEXT : Do you snore loudly (louder than talking or can be heard through closed doors)? 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 Specify any problems Hx of Preganancy in last 3 No 10/04/25 13:44 Months Nurse Filling Out Transfusion JZOLLINGE 10/04/25 13:44 & Questions: Date: 10/04/25 10/04/25 13:44 Time: 13:45 10/04/25 13:44 Patient unable to answer at this time (ie. confused, unrespo /Reproduction History /Reproductive History - multicraft operator: /Reproductive Hx- multicraft operator Hx Now No 10/04/25 13:44 Gestational Age (in weeks): EDC: Hx Hx Para Hx Section SAB No 10/04/25 13:44 Does the father of the baby or his family experience fever w Father of the baby Malignant Hypertension history comment [facility] Medical History (Updated 10/04/25 @ 13:44 by Akiko Dumont) Leukocytosis Hypokalemia Adverse drug reaction Nausea and vomiting Anxiety Alcohol use Thyroid disease History of IBS Asthma Shortness of breath on exertion History of pain when walking Cardiology follow-up encounter History of echocardiogram SBO (small bowel obstruction) Essential hypertension Hyperlipidemia Tachycardia Wears glasses Difficulty swallowing History of ulceration Non-smoker GERD (gastroesophageal reflux disease) Thyroid cancer Arthritis Home Medications ?Medication ?Instructions ?Recorded ?Last Taken ?Type amitriptyline 10 mg tablet 10 mg PO QHS 04/21/18 05/07/24 History multivitamin-ferrous 1 tab PO DAILY 11/19/21 05/06/24 History fumarate-folic acid 18 mg-400 mcg tablet (Centrum Women) thyroid (pork) 30 mg tablet 30 mg PO DAILY 11/19/21 05/08/24 04:00 History alprazolam 0.25 mg tablet 0.25 mg PO BID PRN PRN anxiety 12/17/23 Unknown History cholecalciferol (vitamin D3) 25 5,000 unit PO MO 05/15/24 Unknown History mcg (1,000 unit) capsule (Vitamin D3) ipratropium bromide 21 mcg (0.03 2 spray intranasal BID-TID PRN 02/02/25 Unknown Rx %) nasal spray postnasal drainage #30 mL hydrochlorothiazide 25 mg tablet 25 mg PO DAILY #90 tabs 06/18/25 Unknown Rx carvedilol 25 mg tablet 25 mg PO BID #180 TABLETS 08/07/25 Unknown Rx pancreatin 500 mg tablet 2,000 mg PO BID 08/07/25 Unknown History pantoprazole 40 mg tablet,delayed 40 mg PO QDAY #90 tabs 08/30/25 Unknown Rx release famotidine 20 mg tablet 20 mg PO QDAY #30 tabs 09/12/25 Unknown Rx peg 3350-sod sulf,[id number] See Rx Instructions PO .COMPLEX #2 09/18/25 Unknown Rx 178.7-7.3-0.5-1.12-0.9 gram oral mL soln (Suflave) Allergy/AdvReac Type Severity Reaction Status Date / Time codeine Allergy Unknown Unknown Verified 10/04/25 13:34 Family History Sister Breast cancer Thyroid cancer Father Diabetes Heart disease Hypertension CVA (cerebral vascular accident) Mother Diabetes Surgical History (Updated 10/04/25 @ 13:44 by Akiko Dumont) Hx of colonoscopy with polypectomy Status post total left knee replacement Hx of esophagogastroduodenoscopy History of bilateral cataract extraction History of intestinal surgery Hx of colonoscopy H/O: hysterectomy Hx of appendectomy H/O partial thyroidectomy Hx of cholecystectomy Social History Smoking Status: Never smoker second hand exposure: No alcohol intake: never substance use type: does not use caffeine: Yes what type of physical activity do you participate in: none seatbelt use: always do you feel safe at home: Yes additional social history: - Kirill Audit: Pertinent Findings Pertinent Findings EKG Perinent findings: 03/09/2024. Normal sinus rhythm. Echo (EF%) pertinent findings: 12/29/2021. EF of 60%. Normal valves. Consult pertinent findings: March 03, 2023. Marquise GARCIA. 1. History of tachycardia?stable on Holter monitor. Continue current med management. 2. Hypertension?last echo as above. Continue current med management and monitor. Additional pertinent findings: Holter monitor. 12/29/2021. Normal sinus rhythm. Rare PSVC's. Recommendation Anesthesia Recommendation Anesthesia recommendation: OPTIMIZED for anesthesia
[2025-10-08] VITALS (9 sets, daily range): BP systolic 122–154; BP diastolic 73–88; PULSE 87–101; RESP 16–18; TEMP 36.1–36.7; O2SAT 99–100; BMI 29.5
--- NOTE | 2025-10-08 09:34 | PCM.HP.STD ---
HPI - General General Date of Admission: 10/08/25 Date of Service: 10/08/25 Chief Complaint: Positive Cologuard HPI Narrative VALERIA WELLER, is a 70 F Chief Complaint: positive cologuard Details: 04/25/2025 VALENTINE De La Garza Valeria is a 69 yo female pt here today for f/u regarding her gastroparesis and GERD. Pt has been doing well on reglan and famotidine. She has had increased stress in her life due to her sister being diagnosed with cancer. She has had increased abd pain during times of anxiety for which Dr. Faustin has perviously given her alprazolam for as PRN med. I have refilled alprazolam .25 mg to take PRN. She will continue other medications. -Continue famotidine -Continue PPI -Alprazolam as needed for abd pain -f/u in 6 months - she reports seeing occasional blood in stools, BRB on tissue - Cologuard positive - denies any family h/o colon CA - denies any change in bowel habits - denies any weight loss - denies any heart or lung disease - stomach feels like it is on fire in the morning - denies any N/V - she is taking Famotidine BID and Metoclopramide TID AC - I have no get up and go [facility] Medical History Leukocytosis Hypokalemia Adverse drug reaction Nausea and vomiting Anxiety Alcohol use Thyroid disease History of IBS Asthma Shortness of breath on exertion History of pain when walking Cardiology follow-up encounter History of echocardiogram SBO (small bowel obstruction) Essential hypertension Hyperlipidemia Tachycardia Wears glasses Difficulty swallowing History of ulceration Non-smoker GERD (gastroesophageal reflux disease) Thyroid cancer Arthritis Home Medications ?Medication ?Instructions ?Recorded ?Last Taken ?Type amitriptyline 10 mg tablet 10 mg PO QHS 04/21/18 05/07/24 History multivitamin-ferrous 1 tab PO DAILY 11/19/21 05/06/24 History fumarate-folic acid 18 mg-400 mcg tablet (Centrum Women) thyroid (pork) 30 mg tablet 30 mg PO DAILY 11/19/21 05/08/24 04:00 History alprazolam 0.25 mg tablet 0.25 mg PO BID PRN PRN anxiety 12/17/23 Unknown History cholecalciferol (vitamin D3) 25 5,000 unit PO MO 05/15/24 Unknown History mcg (1,000 unit) capsule (Vitamin D3) ipratropium bromide 21 mcg (0.03 2 spray intranasal BID-TID PRN 02/02/25 Unknown Rx %) nasal spray postnasal drainage #30 mL hydrochlorothiazide 25 mg tablet 25 mg PO DAILY #90 tabs 06/18/25 Unknown Rx carvedilol 25 mg tablet 25 mg PO BID #180 TABLETS 08/07/25 Unknown Rx pancreatin 500 mg tablet 2,000 mg PO BID 08/07/25 Unknown History pantoprazole 40 mg tablet,delayed 40 mg PO QDAY #90 tabs 08/30/25 Unknown Rx release famotidine 20 mg tablet 20 mg PO QDAY #30 tabs 09/12/25 Unknown Rx peg 3350-sod sulf,[id number]-ybl-pus See Rx Instructions PO .COMPLEX #2 09/18/25 Unknown Rx 178.7-7.3-0.5-1.12-0.9 gram oral mL soln (Suflave) Allergy/AdvReac Type Severity Reaction Status Date / Time codeine Allergy Unknown Unknown Verified 10/04/25 13:34 Family History Sister Breast cancer Thyroid cancer Father Diabetes Heart disease Hypertension CVA (cerebral vascular accident) Mother Diabetes Surgical History Hx of colonoscopy with polypectomy Status post total left knee replacement Hx of esophagogastroduodenoscopy History of bilateral cataract extraction History of intestinal surgery Hx of colonoscopy H/O: hysterectomy Hx of appendectomy H/O partial thyroidectomy Hx of cholecystectomy Social History Smoking Status: Never smoker second hand exposure: No alcohol intake: never substance use type: does not use caffeine: Yes what type of physical activity do you participate in: none seatbelt use: always do you feel safe at home: Yes additional social history: - Kirill ROS Constitutional Constitutional: Denies fatigue, fever(s), poor appetite, weight gain or weight loss Gastrointestinal Gastrointestinal: Denies belching, bloating, change in bowel habits, change in stool character, chewing difficulty, coffee ground emesis, constipation, cramping, diarrhea, dyspepsia, dysphagia, early satiety, excessive flatus, fecal incontinence, heartburn, hematemesis, hematochezia, hemorrhoids, loose stools, melena, nausea, odynophagia, rectal bleeding, tenesmus, vomiting or weight changes Physical Exam Const alert, oriented x3, no apparent distress and healthy appearing General Appearance: cooperative GI normal to inspection, nondistended, normoactive bowel sounds, soft to palpation, non-tender and non-distended Percussion: normal to percussion Rectal Exam: deferred Assessment & Plan Assessment/Plan (1) Positive colorectal cancer screening using Cologuard test: PLAN: Assessment and Plan Assessment and Plan (1) Fatigue: Status: Acute (2) Anemia: Status: Acute (3) Positive colorectal cancer screening using Cologuard test: Status: Acute (4) Heartburn: Status: Acute Orders: Orders CBC W/Diff, Automated Today D64.9 - Anemia, unspecified, R19.5 - Other fecal abnormalities, R53.83 - Other fatigue Medications: New pantoprazole 40 mg PO QDAY 90 tabs 1RF peg 3350-sod sulf,kimr-ipr-ywb 178.7-7.3-0.5 gram (Suflave) Take as directed for split dose bowel prep 2 mL 0RF Plan 70y/o female referred by Dr. Peterson for positive cologuard. Colonoscopy was performed 08/11/2021; random and TI biopsies were unremarkable. Last CBC on record May 2024 revealed Hgb 9.8 down from 12.07 Mar 2024. The test outcomes indicate possible presence of blood or DNA of an advanced polyp. The patient reports bright red blood, likely hemorrhoidal, and no weight loss. She will scheduled colonoscopy for further evaluation and repeat a CBC today. She complains of epigastric burning every morning despite taking famotidine twice daily. I have recommended she discontinue morning famotidine and add pantoprazole 30 minutes before breakfast. She will follow-up in the office postprocedure. Patient Instructions: CBC today Discontinue morning famotidine Add pantoprazole once daily, in the morning 30 minutes prior to first meal Continue metoclopramide TID AC Colonoscopy - SuFlave Keep appt. with Mary as scheduled in October ]
--- NOTE | 2025-10-08 09:52 | PRE.ANES_ITS ---
ASA Classification* ASA Classification ASA Classification: 2 Assessment & Plan Anesthesia* Anesthesia Assessment Anesthesia Assessment: Discussed sedation and/or anesthesia options, risks, benefits, and alternatives with patient/parents/legal guardian/POA. Questions invited. The patient/parents/legal guardian/POA seems to understand and agrees to proceed with anesthesia plan. Reviewed the physical assessment, medical history, allergy history and patient home medications list prior to surgery/procedure/anesthetic and documented any changes. Performed airway and anesthesia risk assessments. Anesthesia Type Anesthesia Type: MAC Anesthesia Focused Assessment* Airway Assessment Mouth opens: >3 cm Mallampati Score: II Labs Anesthesia Preop lab: CBC WBC, (4.4-11.0) 9.9 K/mm3 08/30/25, 14:17 RBC, (4.2-5.4) 4.27 M/mm3 08/30/25, 14:17 Hgb, (12.0-15.0) 12.3 g/dL 08/30/25, 14:17 Hct, (37-47) 37.9 % 08/30/25, 14:17 Plt Count, (150-450) 340 K/mm3 08/30/25, 14:17 CHEMISTRY Potassium, (3.3-5.1) 3.5 mmol/L 04/03/25, 12:46 Sodium, (133-145) 139 mmol/L 04/03/25, 12:46 Magnesium, (1.6-2.6) 2.0 mg/dL 05/16/24, 06:53 Phosphorus, (2.5-4.9) 3.4 mg/dL 06/19/24, 14:02 BUN, (4-19) 23 mg/dL H 04/03/25, 12:46 Creatinine, (0.70-1.20) 1.25 mg/dL H 04/03/25, 12:46 Glucose, (70-99) 102 mg/dL H 04/03/25, 12:46 POC Glucose, (74-106) 119 mg/dL H 05/08/24, 05:57 TSH, (0.300-4.200) 0.883 uIU/mL 07/03/25, 11:29 COAG PT, (11.7-14.9) 13.2 SECONDS 02/22/23, 15:10 Pre-Assessment Diagnosis/Proposed Procedure Planned Operative Procedure(s): Colonoscopy Anesthesia History Anesthesia History - operations analyst: Anesthesia History - operations analyst Hx Hospitalization No 10/04/25 13:44 Any Problems With Anesthesia Yes: PONV 10/04/25 13:44 Cholinesterase deficiency No 10/04/25 13:44 You/Your Family Experience No 10/04/25 13:44 fever (hyperthermia) with Relationship Recent Exposure to Contagious No 05/08/24 06:03 Disease Does patient have nerve No 10/04/25 13:44 stimulator Patient instructed to have device shut off --Does patient have Pacemaker or ICD? When Was Last Pacemaker Check QUESTION #4 FULL TEXT: You/Your Family Experience fever (hyperthermia) with Anesthesia Last Oral Intake Last Oral intake: Last Oral Intake NPO since Meds taken in AM with sips of water? Meds patient instructed to take am of surgery PONV PONV - operations analyst: PONV - operations analyst Female Yes 10/04/25 13:44 HX of Motion Sickness No 10/04/25 13:44 HX of N/V After Surgery Yes 10/04/25 13:44 Non-Smoker Yes 10/04/25 13:44 Duration of Surgery greater No 10/04/25 13:44 than 60 minutes Number of Risk Factors 3 10/04/25 13:44 PONV Score Moderate Risk 10/04/25 13:44 Height & Weight Height & Weight: Anesthesia: Height & Weight Height 5 ft 08/30/25 13:35 Respiratory Assessment Respiratory Assessment - operations analyst: Respiratory Tract Infection Hx - operations analyst Hx Respiratory Tract Infection No 10/04/25 13:44 STOP Sleep Apnea STOP Sleep Apnea - operations analyst: STOP Sleep Apnea - operations analyst Hx Hypertension Yes: ON MEDS 10/04/25 13:44 Hx Sleep Apnea No 10/04/25 13:44 CPAP BIPAP Do you snore loudly (louder No 10/04/25 13:44 than talking or can be heard Do you often feel tired/ No 10/04/25 13:44 fatigued/ sleepy during daytime? Has anyone observed you stop No 10/04/25 13:44 breathing during sleep? STOP Results Negative 10/04/25 13:44 QUESTION #5 FULL TEXT : Do you snore loudly (louder than talking or can be heard through closed doors)? Tobacco Use History Tobacco Use History - operations analyst: Tobacco Use History - operations analyst Tobacco Use Smoking Status Never smoker 10/04/25 13:44 Hx Tobacco Use No 10/04/25 13:44 Years Smoking Packs Smoked per Day Smoking Cessation Date was within the last 15 years Hx Smoking Cessation Date Hx Smoking Cessation Counseling Hematologic Medial History Hematologic Hx - operations analyst: Hematologic Medical Hx - documentation consultant Hx of Blood Transfusion No 10/04/25 13:44 Hx of Transfusion in last 3 No 10/04/25 13:44 Months Date of Last Transfusion (if within last 3 months) Ever experience any problems No 10/04/25 13:44 with transfusion(s)? Specify any problems Hx of Preganancy in last 3 No 10/04/25 13:44 Months Nurse Filling Out Transfusion JZOLLINGE 10/04/25 13:44 & Questions: Date: 10/04/25 10/04/25 13:44 Time: 13:45 10/04/25 13:44 Patient unable to answer at this time (ie. confused, unrespo /Reproduction History /Reproductive History - operations analyst: /Reproductive Hx- operations analyst Hx Now No 10/04/25 13:44 Gestational Age (in weeks): EDC: Hx Hx Para Hx Section SAB No 10/04/25 13:44 Does the father of the baby or his family experience fever w Father of the baby Malignant Hypertension history comment Active Medications Active Medications: Current Medications Generic Name Dose Route Start Last Admin Trade Name Freq PRN Reason Stop Dose Admin Lactated Ringer's 1,000 mls @ 15 mls/hr 10/08/25 09:45 IV .Q48H RAOUL PFSH Medical History Leukocytosis Hypokalemia Adverse drug reaction Nausea and vomiting Anxiety Alcohol use Thyroid disease History of IBS Asthma Shortness of breath on exertion History of pain when walking Cardiology follow-up encounter History of echocardiogram SBO (small bowel obstruction) Essential hypertension Hyperlipidemia Tachycardia Wears glasses Difficulty swallowing History of ulceration Non-smoker GERD (gastroesophageal reflux disease) Thyroid cancer Arthritis Home Medications ?Medication ?Instructions ?Recorded ?Last Taken ?Type amitriptyline 10 mg tablet 10 mg PO QHS 04/21/1805/07 History multivitamin-ferrous 1 tab PO DAILY 11/19/21 07/0 04/24 History fumarate-folic acid 18 mg-400 mcg tablet (Centrum Women) thyroid (pork) 30 mg tablet 30 mg PO DAILY 11/19/21 03:30 History alprazolam 0.25 mg tablet 0.25 mg PO BID PRN PRN anxie ty 12/17/23 Unknown History cholecalciferol (vitamin D3) 25 5,000 unit PO MO 05/15 Unknown History mcg (1,000 unit) capsule (Vitamin D3) ipratropium bromide 21 mcg (0.03 2 spray intranasal BI D-TID PRN 02/02/25 Unknown Rx %) nasal spray postnasal drainage #30 mL hydrochlorothiazide 25 mg tablet 25 mg PO DAILY #90 ta bs 06/18/25 Unknown Rx carvedilol 25 mg tablet 25 mg PO BID #180 TABLETS Unknown Rx pancreatin 500 mg tablet 2,000 mg PO BID 08/07/25 Unk nown History pantoprazole 40 mg tablet,delayed 40 mg PO QDAY #90 ta bs 08/30/25 Unknown Rx release famotidine 20 mg tablet 20 mg PO QDAY #30 tabs 09/12 Unknown Rx peg 3350-sod sulf,[id number]-jrz-mrb See Rx Instructions PO .COMPLEX #2 09/18/25 Unknown Rx 178.7-7.3-0.5-1.12-0.9 gram oral mL soln (Suflave) Allergy/AdvReac Type Severity Reaction Status Date / Time codeine Allergy Unknown Unknown Verified 10/04/25 13:34 tramadol AdvReac Vomiting Verified 10/08/25 09:51 Family History Sister Breast cancer Thyroid cancer Father Diabetes Heart disease Hypertension CVA (cerebral vascular accident) Mother Diabetes Surgical History Hx of colonoscopy with polypectomy Status post total left knee replacement Hx of esophagogastroduodenoscopy History of bilateral cataract extraction History of intestinal surgery Hx of colonoscopy H/O: hysterectomy Hx of appendectomy H/O partial thyroidectomy Hx of cholecystectomy Social History Smoking Status: Never smoker second hand exposure: No alcohol intake: never substance use type: does not use caffeine: Yes what type of physical activity do you participate in: none seatbelt use: always do you feel safe at home: Yes additional social history: - Kirill Review of Systems (Anesthesia) ROS Narrative System reviewed and no additional complaints, except as documented.
[2025-10-08] MEDS: Lactated Ringers 1,000 ML 15 ML IV (10:22)
--- NOTE | 2025-10-08 10:30 | COLBX_PTH ---
PATIENT: DAMIEN WELLER LOC: EN U#:[id number] AGE/SX: 70/F ROOM: RE10/08/[address]: Dr. Adilson Faustin DO : 1955 BED: DIS: 10/08/2025 SPEC #: [id number] RECD: 10/08/25 12:21 STATUS: AYSE REQ #: [id number] SNEHAL: 10/08/25 10:[address]: Adilson Faustin DEPT: SURGICAL PATHOLOGY RECD BY: Rosanna Calhoun ENTERED: 10/08/25 13:19 SP TYPE: COLON BX OTHR DR: Dr. Ayde Peterson MD Tissues: Sigmoid colon biopsy Procedures: Surgery Specimen Level IV HEADER OPERATION: Colonoscopy with polypectomy and tattoo PRE-OP DIAGNOSIS: Positive colorectal cancer screening using Cologuard test TISSUE SUBMITTED: A- Sigmoid polyp MICROSCOPIC DIAGNOSIS A. Colon, sigmoid, polyp, polypectomy: - Inflammatory polyp with prolapse changes. - Negative for dysplasia. MICROSCOPIC DESCRIPTION Slides are reviewed. GROSS DESCRIPTION A. Received in formalin labeled with the patient's name and date of . Designated as sigmoid polyp are 2 red, lobulated and granular, polypoid portions of tissue, 0.7 x 0.6 x 0.4 cm (inked black) and 1.0 x 0.7 x 0.6 cm (inked green). Both tissue fragments are trisected and entirely submitted in 2 cassettes. [place] 10/08/2025 CPT:39408
--- NOTE | 2025-10-08 11:38 | PCM.POST.ANE ---
Anesthesia: Postop Eval I Current Vital Signs Temperature: 97 F Pulse Rate: 95 Blood Pressure: 123/81 Respiratory Rate: 16 Pulse Ox: 100 Oxygen Delivery Method: Room Air Assessment Airway patent: Yes Spontaneous unlabored respirations: Yes Mental status: Awake and Calm nausea: No Vomiting: No Anesthesia Complication: No Fluid Hydration Crystalloid volume administer (ml): 500 Total IV fluid infused: 500 Progress Note Anesthesia document: Postop Eval 1 completed: Yes
--- NOTE | 2025-10-08 11:39 | OP.PROVAT_ITS ---
10/08/2025 Ayde Peterson [address] [place] [address] Re : Colonoscopy procedure for Valeria Hunter Dear Dr. Peterson This procedure was performed on Wednesday, October 08, 2025. My impressions and recommendations are as follows: Impressions : - One 20 mm polyp in the sigmoid colon, removed with a hot snare. Resected and retrieved. Tattooed. - The examination was otherwise normal on direct and retroflexion views. Recommendations : - Discharge patient to home. - Resume previous diet. - Continue present medications. - Await pathology results. - Repeat colonoscopy in 1 year for surveillance. My findings are described in the full procedure note, which is enclosed. If I can be of further assistance, please feel free to contact me at . Sincerely, Adilson Friend, 10/08/2025 11:38:39 AM This report has been signed electronically.
--- NOTE | 2025-10-08 11:39 | OP.COLON_ITS ---
Patient Name: Valeria Hunter Procedure Date: 10/08/2025 10:53 AM Date of : 1955 Age: 70 Procedure: Colonoscopy Indications: Screening for colorectal malignant neoplasm Providers: Adilson Faustin DO Referring MD: Ayde Peterson Medicines: Monitored Anesthesia Care Patient Profile: This is a 70 year old female. Refer to note in patient chart for documentation of history and physical. Last Colonoscopy: 10 years ago. Complications: No immediate complications. Procedure: Pre-Anesthesia Assessment: - Prior to the procedure, a History and Physical was performed, and patient medications and allergies were reviewed. The patient is competent. The risks and benefits of the procedure and the sedation options and risks were discussed with the patient. All questions were answered and informed consent was obtained. Patient identification and proposed procedure were verified by the physician in the pre-procedure area. Mental Status Examination: alert and oriented. Airway Examination: normal oropharyngeal airway and neck mobility. Respiratory Examination: clear to auscultation. CV Examination: normal. Prophylactic Antibiotics: The patient does not require prophylactic antibiotics. Prior Anticoagulants: The patient has taken no anticoagulant or antiplatelet agents. ASA Grade Assessment: II - A patient with mild systemic disease. After reviewing the risks and benefits, the patient was deemed in satisfactory condition to undergo the procedure. The anesthesia plan was to use monitored anesthesia care (MAC). Immediately prior to administration of medications, the patient was re-assessed for adequacy to receive sedatives. The heart rate, respiratory rate, oxygen saturations, blood pressure, adequacy of pulmonary ventilation, and response to care were monitored throughout the procedure. The physical status of the patient was re-assessed after the procedure. After I obtained informed consent, the scope was passed under direct vision. Throughout the procedure, the patient's blood pressure, pulse, and oxygen saturations were monitored continuously. The Colonoscope was introduced through the anus and advanced to the cecum, identified by appendiceal orifice and ileocecal valve. The colonoscopy was performed without difficulty. The patient tolerated the procedure well. The quality of the bowel preparation was adequate. The ileocecal valve, appendiceal orifice, and rectum were photographed. Scope In: 11:06:19 AM Scope Withdrawal Time 0 hours 17 minutes 16 seconds Scope Out: 11:27:13 AM Total Procedure Duration Time 0 hours 20 minutes 54 seconds Findings: The perianal and digital rectal examinations were normal. A 20 mm polyp was found in the sigmoid colon. The polyp was semi-pedunculated. The polyp was removed with a hot snare. Resection and retrieval were complete. Area was tattooed with an injection of 1 mL of Nivia ink. The exam was otherwise without abnormality on direct and retroflexion views. Impression: - One 20 mm polyp in the sigmoid colon, removed with a hot snare. Resected and retrieved. Tattooed. - The examination was otherwise normal on direct and retroflexion views. Recommendation: - Discharge patient to home. - Resume previous diet. - Continue present medications. - Await pathology results. - Repeat colonoscopy in 1 year for surveillance. Procedure Code(s): --- Professional --- 47146, Colonoscopy, flexible; with removal of tumor(s), polyp(s), or other lesion(s) by snare technique 47828, Colonoscopy, flexible; with directed submucosal injection(s), any substance CPT copyright 2021 [employer]. All rights reserved. The codes documented in this report are preliminary and upon business solutions analyst review may be revised to meet current compliance requirements. Adilson Faustin DO 10/08/2025 11:38:39 AM This report has been signed electronically. Number of Addenda: 0 Note Initiated On: 10/08/2025 10:53 AM
--- NOTE | 2025-10-08 12:02 | PCM.POSTANE2 ---
Anesthesia Postop Eval I Sum Postop Eval Completion status Anesthesia document: Postop Eval 1 completed: Yes Anesthesia Postop Eval I Summary Anesthesia Postop Eval I Summary: Anesthesia Postop Eval I: Assessment Summary Airway patent Yes 10/08/25 11:39 [email or web address] Spontaneous unlabored Yes 10/08/25 11:39 [email or web address] respirations Mental status Awake,Calm 10/08/25 11:39 [email or web address] nausea No 10/08/25 11:39 [email or web address] Vomiting No 10/08/25 11:39 [email or web address] Anesthesia Postop Eval I: Fluid Summary Crystalloid volume administer 500 10/08/25 11:39 [email or web address] (ml) Colloids volume administered ( ml) Blood Product volume administered (ml) Total IV fluid infused 500 10/08/25 11:39 [email or web address] Anesthesia Postop Eval I: Summary Notes Anesthesia Complication No 10/08/25 11:39 [email or web address] Anesthesia Complication Comment: Post-operative progress note Anesthesia: Postop Eval II Evaluation Mental status: Awake Pain Level: 0 nausea: No Vomiting: No
== END 2025-10-08 12:14 | disposition home or self-care (01) ==
LOC: EN 09:23 → AC 09:24
PROVIDERS: PCP Internal Medicine; Referring Provider Internal Medicine; Visit Provider Internal Medicine Gastroenterology
PROC: 0DJD8ZZ Inspection of Lower Intestinal Tract, Via Natural or Artificial Opening Endoscopic (ICD-10-PCS; CPT 45378; principal; 2025-10-08 10:25)
DX: R19.5 Other fecal abnormalities (principal); K21.9 Gastro-esophageal reflux disease without esophagitis; D64.9 Anemia, unspecified; I10 Essential (primary) hypertension; K63.5 Polyp of colon; E78.5 Hyperlipidemia, unspecified; F41.9 Anxiety disorder, unspecified; Z79.899 Other long term (current) drug therapy; Z86.0100 Personal history of colon polyps, unspecified; Z96.652 Presence of left artificial knee joint; Z98.41 Cataract extraction status, right eye; Z98.42 Cataract extraction status, left eye; Z90.710 Acquired absence of both cervix and uterus; Z90.49 Acquired absence of other specified parts of digestive tract; R53.83 Other fatigue
CPT/HCPCS: 45385; 45381; 88305; A4648; J2405

== ENCOUNTER → 2025-10-23 | Outpatient (CLI) | payer OTHER, MEDICARE, SELFPAY ==
--- NOTE | 2025-10-23 13:46 | US_ITS ---
PROCEDURE: THYROID 10/23/2025 REASON FOR EXAM: GOITER TECHNIQUE: Procedure Code: USTHY Modality: US Procedure: THYROID COMPARISON: None FINDINGS: The right thyroid lobe is removed. Within the right thyroid bed, some residual thyroid tissue is visualized measuring 1.2 x 0.5 x 0.5 cm. Left thyroid lobe size: 5.9 x 1.9 x 2.8 cm Isthmus: 0.6 cm Background parenchymal echotexture is heterogenous Nodules: 1. Lobe: Left, Location: Upper, Size: 1.2 x 0.7 x 0.6 cm, Stability: N/A Composition: Solid or almost completely solid (+2) Echogenicity: Hypoechoic (+2) Margin: Smooth (+0) Shape: Wider than tall (+0) Echogenic Foci: None (+0) TI-RADS: 4 2. Lobe: Left, Location: Mid, Size: 0.9 x 0.7 x 0.8 cm, Stability: N/A Composition: Cystic or mostly cystic (+0) Echogenicity: Hyper to Isoechoic (+1) Margin: Smooth (+0) Shape: Wider than tall (+0) Echogenic Foci: None (+0) TI-RADS: 2 3. Lobe: Left, Location: Lower, Size: 0.7 x 1.0 x 0.8 cm, Stability: N/A Composition: Mixed cystic and solid (+1) Echogenicity: Hyper to Isoechoic (+1) Margin: Smooth (+0) Shape: Taller than wide (+3) Echogenic Foci: None (+0) TI-RADS: 5 4. Lobe: Left, Location: Lower, Size: 2.7 x 2.8 x 1.7 cm, Stability: N/A Composition: Solid or almost completely solid (+2) Echogenicity: Hypoechoic (+2) Margin: Smooth (+0) Shape: Wider than tall (+0) Echogenic Foci: None (+0) TI-RADS: 4 US/Thyroid IMPRESSION: Thyroid nodule 4 in the left thyroid lobe lower pole is TR 4 and should receive fine-needle aspiration if not already performed. Thyroid nodule 3 in the left thyroid lobe midpole is TR 5 and should receive fi ne-needle aspiration if not already performed. Thyroid nodule 1 in the left thyroid lobe upper pole should be followed sonogra phically at year 1, 2, 3 and 5. RECOMMENDATION: Based on most suspicious nodule. Nodule size = largest diameter Only evaluate nodule if =>5 mm. Growth > 20% in 2 dimensions = worsening. Follow up to 4 nodules. Recommend biopsy for no more than 2 nodules. Reading Location: [facility]
== END | disposition home or self-care (01) ==
LOC: US 13:43
PROVIDERS: PCP Internal Medicine; Referring Provider Internal Medicine Endocrinology, Diabetes & Metabolism; Visit Provider Internal Medicine Endocrinology, Diabetes & Metabolism
DX: E03.9 Hypothyroidism, unspecified (principal); R73.03 Prediabetes; E04.9 Nontoxic goiter, unspecified; E55.9 Vitamin D deficiency, unspecified; G62.9 Polyneuropathy, unspecified
CPT/HCPCS: 76536